=== PATIENT | male | born 1980 | race Caucasian/White ===

== ENCOUNTER 2021-01-27 12:31 | Inpatient (IN) | payer MEDICAID, OTHER ==
[~2021-01-27] VITALS: Ht 180.3 cm; Wt 152.0 kg
[~2021-01-27 12:31] MED LIST: ALB0.5V IH; ALBU17AE3 IH; ASPI-875 PO; BENZ100C18 PO; BUDE1AMP IH; BUDE6HFA IH; CEFD300C3 PO; CPR500T PO; DULO30CA PO; FENO134C PO; FENO135C4 PO; FLUT16SP22 NS; GBPN300C PO; HCT25T PO; HYDR-229 PO; HYDR-757 PO; HYDR118S10 PO; HYDR1TAB PO; LIRA0.6P SQ; LISI1TAB10 PO; MELO-195 PO; MELO-198 PO; MMT17NA NSEACH; MNTL10T PO; MONT10TA24 PO; MTF500T PO; OMEP20CA6 PO; OXYC-12 PO; OXYC1TAB87 PO; PREG100C22 PO; PRM25T PO; PROVENTIL INHALER IH; RABE20TA27 PO; RT-ALBUINH IH; SILD20TA2 PO; SULF-222 PO; SULF1TAB38 PO; TMSL.4C PO; [UNRECOGNIZED DRUG - CODE] PO
[2021-01-27 13:25] LABS: BASOPHILS % (AUTO) 0 % (0-10); EOSINOPHILS % (AUTO) 0 % (0-10); HEMATOCRIT 40 % (40-54); HEMOGLOBIN 14.1 g/dL (13.3-17.7); LYMPHOCYTES # (AUTO) 0.8 10^3/uL (1.0-4.0); LYMPHOCYTES % (AUTO) 10 % (12-44); MEAN CORPUSCULAR HEMOGLOBIN 29 pg (25-34); MEAN CORPUSCULAR HGB CONC 36 g/dL (32-36); MEAN CORPUSCULAR VOLUME 80 fL (80-99); MONOCYTES # (AUTO) 0.3 10^3/uL (0.0-1.0); MONOCYTES % (AUTO) 4 % (0-12); NEUTROPHILS # (AUTO) 7.2 10^3/uL (1.8-7.8); NEUTROPHILS % (AUTO) 86 % (42-75); PLATELET COUNT 158 10^3/uL (130-400); WHITE BLOOD COUNT 8.4 10^3/uL (4.3-11.0)
--- NOTE | 2021-01-27 13:26 | ED Respiratory ---
General Chief Complaint: Respiratory Problems Stated Complaint: SOA/COUGH/CHILLS/HEADACHE Source: patient Exam Limitations: no limitations History of Present Illness Date Seen by Provider: Jan 27, 2021 Time Seen by Provider: 13:00 Initial Comments Diabetic overweight male presents with 48 hours of cough shortness of breath malaise fatigue chills nausea. Has not been vaccinated against Covid. Timing/Duration: constant, getting worse Severity: moderate Modifying Factors: Worse With Activity, Worse With Coughing; Improves With Oxygen, Improves With Rest Associated Symptoms: cough, fever/chills, headache, muscle aches, nasal co ngestion, shortness of breath Allergies and Home Medications Allergies Coded Allergies: adhesive (Unverified Allergy, Unknown, RASH, 06/16/14) Home Medications Albuterol Sulfate 2.5 Mg/0.5 Ml Vial.neb, 2.5 MG IH Q4H Prescribed by: MARLEN JACOB on 07/25/152245 Benzonatate 100 Mg Capsule, 1-2 TAB PO TID Prescribed by: MARLEN JACOB on 07/25/152245 Budesonide 1 Mg/2 Ml Ampul.neb, 1 MG IH BID Prescribed by: MARLEN JACOB on 07/25/152245 Budesonide/Formoterol Fumarate 10.2 Gm Hfa.aer.ad, 2 PUFF IH BID, (Reported) Cefdinir 300 Mg Capsule, 300 MG PO BID Prescribed by: MARLEN JACOB on 07/25/152245 Duloxetine Hcl 30 Mg Capsule.dr, 30 MG PO HS, (Reported) Fenofibric Acid (Choline) 135 Mg Capsule.dr, 135 MG PO HS, (Reported) Fluticasone Propionate 16 Gm Naspr, 1 SPRAY NS BID PRN, (Reported) NEEDED FOR ALLERGY SYMPTOMS Hctz/Lisinopril 1 Tab Tablet, 1 TAB PO HS, (Reported) 20-25MG TABLET Liraglutide 0.6 Mg/0.1 Ml Pen.injctr, 1.8 MG SQ HS, (Reported) Meloxicam 7.5 Mg Tablet, 7.5 MG PO DAILY, (Reported) Mometasone Furoate 17 Gm Naspr, 2 SPRAYS NSEACH BID Prescribed by: MARLEN JACOB on 07/25/152245 Montelukast Sodium 10 Mg Tablet, 10 MG PO HS, (Reported) Oxycodone Hcl/Acetaminophen 1 Each Tablet, 1-2 EACH PO Q4-6H PRN Prescribed by: BRAYDON BOTELLO on 06/22/14 1040 Pregabalin 100 Mg Capsule, 100 MG PO TID, (Reported) Rabeprazole Sodium 20 Mg Tablet.dr, 20 MG PO HS, (Reported) [Proventil Inhaler] , 2 PUFF IH Q4H PRN for SHORTNESS OF BREATH, (Reported) PRN SOB Patient Home Medication List Home Medication List Reviewed: Yes Review of Systems Review of Systems Constitutional: see HPI, chills, malaise, weakness EENTM: see HPI Respiratory: see HPI, cough, short of breath Cardiovascular: no symptoms reported Genitourinary: no symptoms reported Musculoskeletal: no symptoms reported Skin: no symptoms reported Psychiatric/Neurological: No Symptoms Reported Past Dgkxgur-Vuplqd-Yidrfh Hx Immunizations Up To Date Date of Influenza Vaccine: Jun 11, 2012 Seasonal Allergies Seasonal Allergies: Yes Past Medical History Eye Surgery, Vasectomy Asthma High Cholesterol, Hypertension Neuropathy Reproductive Disorders: No Kidney Stones Gastroesophageal Reflux, Hemorrhoids Arthritis Diabetes, Non-Insulin dep Anxiety, Depression Physical Exam Vital Signs - First Documented 01/27/21 12:45 Temp 38.0 Pulse 83 Resp 22 B/P (MAP) 116/77 (90) Pulse Ox 94 O2 Delivery Nasal Cannula O2 Flow Rate 2.00 Capillary Refill : Height: 5'11" Weight: 305lbs. oz. 138.926766uz; BMI Method:Stated General Appearance: WD/WN, no apparent distress, obese, other (No distress. 88% on room air. Up to 94% with 2 L of supplemental oxygen.) Eyes: Bilateral Eye Normal Inspection, Bilateral Eye PERRL, Bilateral Eye EOMI Neck: non-tender, full range of motion Respiratory: chest non-tender, no respiratory distress, no accessory muscle use Cardiovascular: regular rate, rhythm, no murmur Gastrointestinal: normal bowel sounds, non tender, soft Neurologic/Psychiatric: alert, normal mood/affect, oriented x 3 Skin: normal color, warm/dry Focused Exam Lactate Level 01/27/21 12:50: Lactic Acid Level 1.97 Lactic Acid Level Laboratory Tests Test 01/27/21 12:50 Lactic Acid Level 1.97 MMOL/L (0.50-2.00) Progress/Results/Core Measures Suspected Sepsis SIRS Temperature: Pulse: Respiratory Rate: Laboratory Tests 01/27/21 12:50: White Blood Count 8.4 Blood Pressure / Mean: 01/27/21 12:50: Lactic Acid Level 1.97 Laboratory Tests 01/27/21 12:50: Creatinine 1.22, Platelet Count 158, Total Bilirubin 1.3H Results/Orders Lab Results Laboratory Tests Test 01/27/21 12:50 Range/Units White Blood Count 8.4 4.3-11.0 10^3/uL Red Blood Count 4.94 4.30-5.52 10^6/uL Hemoglobin 14.1 13.3-17.7 g/dL Hematocrit 40 40-54 % Mean Corpuscular Volume 80 80-99 fL Mean Corpuscular Hemoglobin 29 25-34 pg Mean Corpuscular Hemoglobin Concent 36 32-36 g/dL Red Cell Distribution Width 12.5 10.0-14.5 % Platelet Count 158 130-400 10^3/uL Mean Platelet Volume 11.0 9.0-12.2 fL Immature Granulocyte % (Auto) 1 % Neutrophils (%) (Auto) 86 H 42-75 % Lymphocytes (%) (Auto) 10 L 12-44 % Monocytes (%) (Auto) 4 0-12 % Eosinophils (%) (Auto) 0 0-10 % Basophils (%) (Auto) 0 0-10 % Neutrophils # (Auto) 7.2 1.8-7.8 10^3/uL Lymphocytes # (Auto) 0.8 L 1.0-4.0 10^3/uL Monocytes # (Auto) 0.3 0.0-1.0 10^3/uL Eosinophils # (Auto) 0.0 0.0-0.3 10^3/uL Basophils # (Auto) 0.0 0.0-0.1 10^3/uL Immature Granulocyte # (Auto) 0.0 0.0-0.1 10^3/uL D-Dimer 0.50 H 0.00-0.49 UG/ML Sodium Level 131 L 135-145 MMOL/L Potassium Level 3.2 L 3.6-5.0 MMOL/L Chloride Level 92 L 98-107 MMOL/L Carbon Dioxide Level 25 21-32 MMOL/L Anion Gap 14 5-14 MMOL/L Blood Urea Nitrogen 11 7-18 MG/DL Creatinine 1.22 0.60-1.30 MG/DL Estimat Glomerular Filtration Rate > 60 BUN/Creatinine Ratio 9 Glucose Level 381 H 70-105 MG/DL Lactic Acid Level 1.97 0.50-2.00 MMOL/L Calcium Level 8.0 L 8.5-10.1 MG/DL Corrected Calcium 8.3 L 8.5-10.1 MG/DL Total Bilirubin 1.3 H 0.1-1.0 MG/DL Aspartate Amino Transf (AST/SGOT) 27 5-34 U/L Alanine Aminotransferase (ALT/SGPT) 29 0-55 U/L Alkaline Phosphatase 36 L 40-136 U/L C-Reactive Protein High Sensitivity 16.44 H 0.00-0.50 MG/DL B-Type Natriuretic Peptide 48.2 <100.0 PG/ML Total Protein 6.8 6.4-8.2 GM/DL Albumin 3.6 3.2-4.5 GM/DL Procalcitonin 0.28 H <0.10 NG/ML Influenza Type A (RT-PCR) Not Detected Not Detecte Influenza Type B (RT-PCR) Not Detected Not Detecte SARS-CoV-2 RNA (RT-PCR) Detected H Not Detecte My Orders Orders - ELOY CHIANG [employer] Cbc With Automated Diff (01/27/21 12:52) Covid 19 Inhouse Test (01/27/21 12:52) Hs C Reactive Protein (01/27/21 12:52) Comprehensive Metabolic Panel (01/27/21 12:52) Fibrin Degradation Products (01/27/21 12:52) Chest 1 View, Ap/Pa Only (01/27/21 12:52) Procalcitonin (Pct) (01/27/21 12:52) Ed Iv/Invasive Line Start (01/27/21 12:52) Blood Culture (01/27/21 12:52) Influenza A And B By Pcr (01/27/21 12:52) Lactic Acid Analyzer (01/27/21 12:52) BNP (01/27/21 13:43) Medications Given in ED Vital Signs/I&O 01/27/21 12:45 Temp 38.0 Pulse 83 Resp 22 B/P (MAP) 116/77 (90) Pulse Ox 94 O2 Delivery Nasal Cannula O2 Flow Rate 2.00 Capillary Refill : Diagnostic Imaging Diagonstic Imaging: Xray Comments NAME: [facility] REC#: [id number] PT STATUS: REG ER : 1980 PHYSICIAN: ELOY CHIANG APRN ADMIT DATE: 01/27/21/ER Draft Date of Exam:01/27/21 CHEST 1 VIEW, AP/PA ONLY Indication: Cough. Time of exam: 1:35 PM Correlation is made prior chest 07/25/2015. The heart size is normal. There is patchy airspace infiltrate in the right base suggestive of pneumonia. Remaining lung navarrete are clear. There is no effusion or pneumothorax. Impression: Patchy right basilar pneumonia. Dictated on workstation # [id number] Dict: 01/27/21 1346 Trans: 01/27/21 1359 CVB [id number] Interpreted by: NGA ALFARO MD Electronically signed by: Departure Communication (Admissions) [id number] spoke with Dr. Marshall will admit on remdesivir, Decadron, 20 units of regular insulin Impression Primary Impression: COVID-19 Additional Impression: Hypoxia Disposition: ADMITTED INPATIENT Condition: Stable Admissions Decision to Admit Reason: Admit from ER (General) Decision to Admit/Date: Jan 27, 2021 Time/Decision to Admit Time: 14:03 Departure-Patient Inst. Referrals: [facility] [place] ([place]) Primary Care Physician ELOY CHIANG APRN Jan 27, 2021 13:26
[2021-01-27 13:38] LABS: ALBUMIN 3.6 GM/DL (3.2-4.5)
[2021-01-27 13:39] LABS: CHLORIDE 92 MMOL/L (98-107); POTASSIUM 3.2 MMOL/L (3.6-5.0); SODIUM 131 MMOL/L (135-145)
[2021-01-27 13:41] LABS: GLUCOSE 381 MG/DL (70-105); TOTAL PROTEIN 6.8 GM/DL (6.4-8.2)
[2021-01-27 13:42] LABS: CARBON DIOXIDE 25 MMOL/L (21-32)
[2021-01-27 13:43] LABS: BILIRUBIN,TOTAL 1.3 MG/DL (0.1-1.0)
[2021-01-27 13:44] LABS: ALKALINE PHOSPHATASE 36 U/L (40-136)
[2021-01-27 13:45] LABS: CREATININE SERUM 1.22 MG/DL (0.60-1.30); GFR ESTIMATED > 60
[2021-01-27 13:46] LABS: BUN/CREATININE RATIO 9
[2021-01-27 13:48] LABS: ALANINE AMINOTRANSFERASE 29 U/L (0-55)
--- NOTE | 2021-01-27 14:00 | Diagnostic Imaging Report ---
Indication: Cough. Time of exam: 1:35 PM Correlation is made prior chest 07/25/2015. The heart size is normal. There is patchy airspace infiltrate in the right base suggestive of pneumonia. Remaining lung navarrete are clear. There is no effusion or pneumothorax. Impression: Patchy right basilar pneumonia. Dictated by: Dictated on workstation # [id number]
[2021-01-27] MEDS ORDERED: inSUlin (REGULAR) HUMAN 1 UNIT/0.01 ML (CHARGE PER UNIT) SC ONE ×2 (14:15→14:30)
[2021-01-27] MEDS ORDERED: NS IV 1000 ML 1,000 ML IV SCH (14:15)
[2021-01-27] MEDS ORDERED: dexAMETHasone 6 MG TAB (DECADRON) PO SCH (14:30)
[2021-01-27] MEDS ORDERED: inSUlin (REGULAR) HUMAN 1 UNIT/0.01 ML (CHARGE PER UNIT) ONE (14:32)
[2021-01-27] MEDS ORDERED: dexAMETHasone 6 MG TAB (DECADRON) ONE (14:33)
[2021-01-27 15:37] LABS: ABG BASE EXCESS 1.5 MMOL/L (-2.5-2.5); ABG OXYGEN SATURATION 95 % (94-100); ABG PCO2 31 MMHG (35-45); ABG PO2 74 MMHG (79-93); ABG TCO2 25.1 MMOL/L (21.0-31.0)
[2021-01-27 15:38] LABS: INSPIRED O2 2 L; PATIENT TEMP 101.3; VENTILATOR NO
[2021-01-27 16:00] VITALS: BP 124/71
[2021-01-27 16:43] VITALS: BP 104/62
[2021-01-27] MEDS ORDERED: REMDESIVIR INJ 100 MG in NS (IVPB) 230 ML IV SCH (17:45)
[2021-01-27] MEDS ORDERED: inSUlin ASPART (NovoLOG) 1 UNIT/0.01 ML (CHARGE PER UNIT) SC SCH (17:45)
[2021-01-27] MEDS ORDERED: ONDANSETRON 4 MG/2 ML (SDV) Z0FRAN IVP PRN ×2 (17:45→19:30)
[2021-01-27] MEDS ORDERED: ENOXAPARIN 40 MG/0.4 ML (LOVENOX) SYR SC SCH (17:45)
[2021-01-27] MEDS ORDERED: ENOXAPARIN 40 MG/0.4 ML (LOVENOX) SYR ONE (18:05)
[2021-01-27] MEDS: RT-ALBUTEROL INHALER HFA (VENTOLIN HFA) 18 GM IH SCH ×2 (18:44→21:13)
[2021-01-27] MEDS: inSUlin ASPART (NovoLOG) 1 UNIT/0.01 ML (CHARGE PER UNIT) SC SCH ×2 (19:17→21:04)
[2021-01-27] MEDS ORDERED: ACETAMINOPHEN 500 MG TAB (TYLENOL) PO PRN (19:30)
[2021-01-27] MEDS ORDERED: MELATONIN 3 MG TABLET PO PRN (19:30)
[2021-01-27] MEDS ORDERED: LOPERAMIDE 2 MG (IMODIUM) TABLET PO PRN (19:30)
[2021-01-27] MEDS ORDERED: CALCIUM CARBONATE 500 MG (TUMS) TAB.CHEW PO PRN (19:30)
[2021-01-27] MEDS ORDERED: DOCUSATE SODIUM 100 MG (COLACE) CAP PO PRN (19:30)
[2021-01-27] MEDS ORDERED: HYDROcodone/APAP 5 MG/325 MG (LORTAB) TAB PO PRN (19:30)
[2021-01-27] MEDS ORDERED: diphenhydrAMINE 25 MG TAB (BENADRYL) PO PRN (19:30)
[2021-01-27 19:45] VITALS: BP 127/66
[2021-01-27] MEDS: SENNA W/DOCUSATE (SENOKOT S) TABLET PO SCH (21:33)
[2021-01-28] VITALS (20 sets, daily range): BP systolic 94–153; BP diastolic 53–74
[2021-01-28] MEDS: RT-ALBUTEROL INHALER HFA (VENTOLIN HFA) 18 GM IH SCH ×6 (03:38→20:21)
[2021-01-28] MEDS: RT--FLUTICASONE/SALMETEROL 232-14 (AIRDUO RespiCLICK) IH SCH ×3 (03:38→20:29)
[2021-01-28 05:39] LABS: BASOPHILS % (AUTO) 0 % (0-10); EOSINOPHILS % (AUTO) 0 % (0-10); HEMATOCRIT 35 % (40-54); HEMOGLOBIN 12.3 g/dL (13.3-17.7); LYMPHOCYTES % (AUTO) 13 % (12-44); MEAN CORPUSCULAR HEMOGLOBIN 29 pg (25-34); MEAN CORPUSCULAR HGB CONC 35 g/dL (32-36); MEAN CORPUSCULAR VOLUME 81 fL (80-99); MEAN PLATELET VOLUME 11.3 fL (9.0-12.2); MONOCYTES # (AUTO) 0.3 10^3/uL (0.0-1.0); MONOCYTES % (AUTO) 4 % (0-12); NEUTROPHILS # (AUTO) 6.3 10^3/uL (1.8-7.8); NEUTROPHILS % (AUTO) 82 % (42-75); PLATELET COUNT 144 10^3/uL (130-400); WHITE BLOOD COUNT 7.7 10^3/uL (4.3-11.0)
[2021-01-28 05:51] LABS: CHLORIDE 97 MMOL/L (98-107); POTASSIUM 3.3 MMOL/L (3.6-5.0); SODIUM 135 MMOL/L (135-145)
[2021-01-28 05:52] LABS: CALCIUM 7.6 MG/DL (8.5-10.1); GLUCOSE 276 MG/DL (70-105)
--- NOTE | 2021-01-28 05:53 | History & Physical-Hospitalist ---
History of Present Illness HPI/Chief Complaint Chief complaint: Shortness of breath due to Covid History of present illness: This is a 40-year-old white male diabetic noncompliant with diabetic medication who does not use oxygen or CPAP machine but appears to be high risk for CPAP due to neck circumference and BMI of 40 who presented to the ER with shortness of breath was diagnosed with Covid and he is hypoxic. Patient has progressed throughout the day and at 2100 hrs. the decision was made to transfer up to the ICU for pulmonary critical care management due to maxed on Vapotherm likely will need BiPAP and possible intubation. His blood sugars remain in the 300s with aggressive insulin regimen trying to decrease the level. He does not currently smoke or drink alcohol any works for [employer]. He has not been vaccinated against COVID-19. Source: patient, RN/MD Exam Limitations: no limitations Date Seen 01/28/21 Time Seen by a Provider: 10:30 Attending Physician Maria Alejandra Marshall DO [facility] Referring Physician Date of Admission Jan 27, 2021 at 14:00 Home Medications & Allergies Home Medications Reviewed patient Home Medication Reconciliation performed by pharmacy medication reconciliations telecom field technician and/or nursing. Patients Allergies have been reviewed. Allergies Allergies Coded Allergies adhesive (Unverified Allergy, Unknown, RASH, 06/16/14) Past Cnrmqbv-Jssool-Sprcal Hx Patient Social History Marrital Status: single Employed/Student: employed Tobacco Use?: No Smoking Status: Never a Smoker Smokeless Tobacco Frequency: Never a User Use of E-Cig and/or Vaping dev: Yes E-Cig or Vaping type used: Nicotine Use of E-Cig and/or Vaping Greyson: Current Everyday User Substance use?: No Alcohol Use?: No Pt feels they are or have been: No Immunizations Up To Date Date of Influenza Vaccine: Jun 11, 2012 First/Initial COVID19 Vaccinat: NEVER Tetanus Booster (TDap): More Than 5 Years Hepatitis A: No Hepatitis B: No PED Vaccines UTD: Yes Seasonal Allergies Seasonal Allergies: Yes Current Status Advance Directives: No Communicates: Verbally Primary Language: Mohawk Preferred Spoken Language: Mohawk Is interpretation needed?: No Implanted or Applied Medical D: None Past Medical History Surgeries: Eye Surgery, Vasectomy Asthma High Cholesterol, Hypertension Neuropathy Kidney Stones Gastroesophageal Reflux, Hemorrhoids Arthritis Diabetes, Non-Insulin dep Anxiety, Depression Blood Disorders: No Review of Systems Constitutional: see HPI, weakness Respiratory: cough Physical Exam Physical Exam Vital Signs Vital Signs - First Documented 01/27/21 01/27/21 12:45 16:43 Temp 38.0 Pulse 83 Resp 22 B/P (MAP) 116/77 (90) Pulse Ox 94 O2 Delivery Nasal Cannula O2 Flow Rate 2.00 FiO2 28 Capillary Refill : Less Than 3 Seconds Height, Weight, BMI Height: 5'11" Weight: 305lbs. oz. 138.067899vl; 39.92 BMI Method:Stated General Appearance: No Apparent Distress, Anxious, Chronically ill, Obese Eyes: Right Eye Normal Inspection, Right Eye PERRL HEENT: PERRL/EOMI, Normal ENT Inspection, Pharynx Normal, Moist Mucous Membranes Neck: Full Range of Motion, Normal Inspection, Non Tender Respiratory: Chest Non Tender, Lungs Clear, No Accessory Muscle Use, No Respiratory Distress, Decreased Breath Sounds Cardiovascular: Regular Rate, Rhythm, No Edema, No Gallop, No JVD, No Murmur, Normal Peripheral Pulses Gastrointestinal: Normal Bowel Sounds, No Organomegaly, No Pulsatile Mass, Non Tender, Soft Back: Normal Inspection, No CVA Tenderness, No Vertebral Tenderness Extremity: Normal Capillary Refill, Normal Inspection, Normal Range of Motion, Non Tender, No Calf Tenderness, No Pedal Edema Neurologic/Psychiatric: Alert, Oriented x3, No Motor/Sensory Deficits, Normal Mood/Affect Skin: Normal Color, Warm/Dry Lymphatic: No Adenopathy Results Results/Procedures Labs Laboratory Tests 01/27/21 12:50 01/28/21 05:20 Patient resulted labs reviewed. Assessment/Plan Admission Diagnosis Assessment: COVID-19 pneumonia Hypoxia maxing on Vapotherm transferring to ICU for BiPAP and possible intubation Morbid obesity BMI 40 Diabetes gmy-jk-rcyysxm in 300 range hemoglobin A1c pending Neuropathy Hypertension Hyperlipidemia Plan: Transfer to the ICU BiPAP Possible intubation Lovenox twice daily Decadron Convalescent plasma Remdesivir Monitor closely Admission Status: Inpatient Order (span 2 midnights) Reason for Inpatient Admission: COVID Diagnosis/Problems Diagnosis/Problems (1) COVID-19 Status: Acute (2) Hypoxia Status: Acute MARIA ALEJANDRA MARSHALL DO Jan 28, 2021 05:53
[2021-01-28 05:54] LABS: CARBON DIOXIDE 23 MMOL/L (21-32)
[2021-01-28 05:56] LABS: CREATININE SERUM 1.13 MG/DL (0.60-1.30); GFR ESTIMATED > 60
[2021-01-28 05:57] LABS: BUN/CREATININE RATIO 14
[2021-01-28] MEDS: inSUlin ASPART (NovoLOG) 1 UNIT/0.01 ML (CHARGE PER UNIT) SC SCH ×4 (06:14→20:35)
[2021-01-28] MEDS: dexAMETHasone 6 MG TAB (DECADRON) PO SCH (06:14)
[2021-01-28] MEDS: SENNA W/DOCUSATE (SENOKOT S) TABLET PO SCH ×2 (07:38→19:18)
[2021-01-28] MEDS: ALPRAZolam 0.25 MG (XANAX) TAB PO PRN (08:26)
[2021-01-28] MEDS: REMDESIVIR INJ 100 MG in NS (IVPB) 230 ML IV SCH (09:05)
[2021-01-28] MEDS: ENOXAPARIN 40 MG/0.4 ML (LOVENOX) SYR SC SCH ×2 (12:24→20:22)
[2021-01-28] MEDS ORDERED: NS IV 500 ML 500 ML ONE (13:31)
[2021-01-28] MEDS: inSUlin (REGULAR) HUMAN 1 UNIT/0.01 ML (CHARGE PER UNIT) SC PRN ×2 (17:10→20:34)
--- NOTE | 2021-01-28 21:17 | Diagnostic Imaging Report ---
EXAM: Chest 1 view, AP/PA only. INDICATION: Pneumonia. COVID. COMPARISON: Chest radiograph 01/27/2021. FINDINGS: Diffuse airspace opacities are similar to yesterday. No pleural effusion or pneumothorax. Low lung volumes. Normal heart size and central pulmonary vascularity. No acute osseous findings. IMPRESSION: Airspace opacities, bilaterally, are similar to yesterday. Dictated by: Dictated on workstation # [id number]
[2021-01-28 21:41] LABS: BASOPHILS % (AUTO) 0 % (0-10); EOSINOPHILS % (AUTO) 0 % (0-10); HEMATOCRIT 36 % (40-54); HEMOGLOBIN 12.7 g/dL (13.3-17.7); LYMPHOCYTES # (AUTO) 0.9 10^3/uL (1.0-4.0); LYMPHOCYTES % (AUTO) 7 % (12-44); MEAN CORPUSCULAR HEMOGLOBIN 29 pg (25-34); MEAN CORPUSCULAR HGB CONC 36 g/dL (32-36); MEAN CORPUSCULAR VOLUME 80 fL (80-99); MEAN PLATELET VOLUME 11.5 fL (9.0-12.2); MONOCYTES # (AUTO) 0.3 10^3/uL (0.0-1.0); MONOCYTES % (AUTO) 3 % (0-12); NEUTROPHILS # (AUTO) 11.5 10^3/uL (1.8-7.8); NEUTROPHILS % (AUTO) 90 % (42-75); PLATELET COUNT 215 10^3/uL (130-400); WHITE BLOOD COUNT 12.8 10^3/uL (4.3-11.0)
[2021-01-28 21:51] LABS: ALANINE AMINOTRANSFERASE 50 U/L (0-55); ALBUMIN 3.2 GM/DL (3.2-4.5); ALKALINE PHOSPHATASE 39 U/L (40-136); BUN/CREATININE RATIO 15; CALCIUM 8.1 MG/DL (8.5-10.1); CARBON DIOXIDE 23 MMOL/L (21-32); CHLORIDE 96 MMOL/L (98-107); CREATININE SERUM 1.23 MG/DL (0.60-1.30); GFR ESTIMATED > 60; SODIUM 133 MMOL/L (135-145); TOTAL PROTEIN 6.3 GM/DL (6.4-8.2)
[2021-01-28 21:57] LABS: ABG BASE EXCESS 2.5 MMOL/L (-2.5-2.5); ABG OXYGEN SATURATION 96 % (94-100); ABG PCO2 33 MMHG (35-45); ABG PH 7.51 (7.37-7.43); ABG PO2 85 MMHG (79-93); ABG TCO2 26.2 MMOL/L (21.0-31.0)
[2021-01-28 21:59] LABS: ALLENS TEST POSITIVE; INSPIRED O2 100%; PATIENT TEMP 38.6; VENTILATOR NO
[2021-01-28 22:02] LABS: GLUCOSE 417 MG/DL (70-105)
[2021-01-28] MEDS ORDERED: POTASSIUM CL 10MEQ/50ML IVPB 250 ML IV ONE (22:29)
[2021-01-28 22:35] LABS: LYMPHOCYTES % (MANUAL) 8 %; MONOCYTES % (MANUAL) 2 %; NEUTROPHILS % (MANUAL) 90 %; RBC MORPH NORMAL
[2021-01-28] MEDS: POTASSIUM CL 10MEQ/50ML IVPB 50 ML IV SCH ×2 (22:53→23:24)
[2021-01-29] VITALS (31 sets, daily range): BP systolic 95–168; BP diastolic 54–126
[2021-01-29] MEDS: POTASSIUM CL 10MEQ/50ML IVPB 50 ML IV SCH ×7 (00:40→12:26)
[2021-01-29] MEDS: RT-ALBUTEROL INHALER HFA (VENTOLIN HFA) 18 GM IH SCH ×6 (03:08→21:42)
[2021-01-29 04:00] LABS: BASOPHILS % (AUTO) 0 % (0-10); EOSINOPHILS % (AUTO) 0 % (0-10); HEMATOCRIT 36 % (40-54); HEMOGLOBIN 12.7 g/dL (13.3-17.7); LYMPHOCYTES # (AUTO) 1.3 10^3/uL (1.0-4.0); LYMPHOCYTES % (AUTO) 11 % (12-44); MEAN CORPUSCULAR HEMOGLOBIN 28 pg (25-34); MEAN CORPUSCULAR HGB CONC 36 g/dL (32-36); MEAN CORPUSCULAR VOLUME 80 fL (80-99); MEAN PLATELET VOLUME 10.9 fL (9.0-12.2); MONOCYTES # (AUTO) 0.4 10^3/uL (0.0-1.0); MONOCYTES % (AUTO) 3 % (0-12); NEUTROPHILS # (AUTO) 9.7 10^3/uL (1.8-7.8); NEUTROPHILS % (AUTO) 85 % (42-75); PLATELET COUNT 217 10^3/uL (130-400); WHITE BLOOD COUNT 11.4 10^3/uL (4.3-11.0)
[2021-01-29] MEDS: ALPRAZolam 0.25 MG (XANAX) TAB PO PRN (04:00)
[2021-01-29 04:17] LABS: CHLORIDE 100 MMOL/L (98-107); POTASSIUM 3.2 MMOL/L (3.6-5.0); SODIUM 138 MMOL/L (135-145)
[2021-01-29 04:18] LABS: CALCIUM 7.9 MG/DL (8.5-10.1)
[2021-01-29 04:19] LABS: GLUCOSE 151 MG/DL (70-105)
[2021-01-29 04:20] LABS: CARBON DIOXIDE 24 MMOL/L (21-32)
[2021-01-29 04:22] LABS: PHOSPHORUS 2.7 MG/DL (2.3-4.7)
[2021-01-29 04:23] LABS: CREATININE SERUM 0.96 MG/DL (0.60-1.30); GFR ESTIMATED > 60
[2021-01-29 04:24] LABS: BUN/CREATININE RATIO 19
[2021-01-29 04:25] LABS: MAGNESIUM 2.2 MG/DL (1.6-2.4)
[2021-01-29] MEDS: inSUlin ASPART (NovoLOG) 1 UNIT/0.01 ML (CHARGE PER UNIT) SC SCH ×4 (04:36→20:02)
[2021-01-29] MEDS: KCL 20 MEQ TAB (K-DUR) PO SCH (04:36)
[2021-01-29] MEDS: MAGNESIUM 1 GM/100 ML IVPB 100 ML IV SCH (04:36)
[2021-01-29] MEDS: dexAMETHasone 6 MG TAB (DECADRON) PO SCH (06:16)
[2021-01-29] MEDS: RT--FLUTICASONE/SALMETEROL 232-14 (AIRDUO RespiCLICK) IH SCH ×3 (07:17→18:52)
--- NOTE | 2021-01-29 08:42 | Pulmonary Progress Note ---
Subjective Date Seen by a Provider: Jan 29, 2021 Time Seen by a Provider: 09:29 Subjective/Events-last exam 40 y/o with Hx of DM2, possible CONCEPCIÓN, non compliant with meds. Came in for COVID- 19 PNA with acute hypoxic resp failure. Moved to ICU for increased WOB and worsening hypoxia. Was on high flow @ 40 kpm with FiO2 100%, now back on BiPAP 12/8 FiO2 90%. Sats 97% on 100% O2. Labs, CXR report reviewed.has bilateral opacities Mild transaminitis On Remdesivir and Decadron. glu high,, on Lemivir 25 units, patient is NPO RN reports pt is anxious On Xanax, but will try IV Precedex Sepsis Event Evaluation Height, Weight, BMI Height: 5'11" Weight: 305lbs. oz. 138.311999wk; 39.92 BMI Method:Stated Focused Exam Lactate Level 01/27/21 12:50: Lactic Acid Level 1.97 Exam Exam Patient acknowledged, consented, and participated in this virtual visit which was conducted using real time audio/video Vital Signs Date Time Temp Pulse Resp B/P (MAP) Pulse Ox O2 Delivery O2 Flow Rate FiO2 01/29/21 07:17 91 Vapotherm 40.00 100 01/29/21 06:39 58 01/29/21 06:00 62 30 112/67 (82) 93 NIV Bilevel 75.00 01/29/21 05:00 57 114/68 (79) 95 NIV Bilevel 75.00 01/29/21 04:00 37.6 01/29/21 04:00 68 108/72 (81) 94 NIV Bilevel 75.00 01/29/21 03:08 65 23 95 70.00 01/29/21 03:05 NIV Bilevel 75 01/29/21 03:00 58 25 96/62 (71) 96 NIV Bilevel 75.00 01/29/21 02:16 NIV Bilevel 75.00 01/29/21 02:08 66 30 95/62 (69) 96 NIV Bilevel 90.00 01/29/21 01:00 66 103/67 (79) 97 NIV Bilevel 90.00 01/29/21 01:00 66 01/29/21 00:30 69 111/64 (80) 94 NIV Bilevel 90.00 01/29/21 00:00 69 27 111/54 (73) 98 NIV Bilevel 100.00 01/29/21 00:00 NIV Bilevel 90 01/28/21 23:45 77 32 110/61 (73) 97 NIV Bilevel 100.00 01/28/21 23:30 73 22 107/64 (74) 97 NIV Bilevel 100.00 01/28/21 23:24 38.6 01/28/21 23:15 80 28 107/59 (75) 97 NIV Bilevel 100.00 01/28/21 23:00 85 27 105/60 (77) 96 NIV Bilevel 100.00 01/28/21 22:59 80 34 97 100.00 01/28/21 22:49 78 31 117/64 (81) 95 NIV Bilevel 100.00 01/28/21 22:00 60 21 153/65 (94) 94 NIV Bilevel 100.00 01/28/21 21:56 80 01/28/21 21:56 80 01/28/21 21:45 81 29 120/65 (83) 97 NIV Bilevel 100.00 01/28/21 21:34 38.6 80 27 118/66 (83) 93 NIV Bilevel 100.00 01/28/21 21:26 78 34 96 100.00 01/28/21 21:16 95 29 128/71 (90) 88 Vapotherm 40.00 100.00 01/28/21 20:30 92 Vapotherm 40.00 100 01/28/21 20:10 90 Vapotherm 40.00 100.00 01/28/21 20:04 38.1 88 22 115/57 (76) 83 Vapotherm 25.00 80.00 01/28/21 19:30 89 Vapotherm 40.00 100 01/28/21 16:46 36.9 81 20 116/55 (75) 92 Vapotherm 25.00 80.00 01/28/21 15:50 37.4 67 20 108/72 93 Vapotherm 25.00 01/28/21 14:04 37.5 60 20 115/70 93 Vapotherm 25.00 01/28/21 13:58 94 Vapotherm 25.00 90 01/28/21 13:49 37.5 68 19 114/58 92 Vapotherm 25.00 01/28/21 12:00 38.0 64 20 116/60 (78) 93 Vapotherm 25.00 90.00 01/28/21 10:53 94 Vapotherm 25.00 90.00 01/28/21 10:46 95 Vapotherm 25.00 90 01/28/21 10:16 89 Nasal Cannula 4.00 I & O 01/29/21 07:00 Intake Total 1110 ml Output Total 600 ml Balance 510 ml Height & Weight Height: 5'11" Weight: 305lbs. oz. 138.073809jv; 39.92 BMI Method:Stated General Appearance: No Apparent Distress, Anxious, Chronically ill, Obese HEENT: PERRL/EOMI, Normal ENT Inspection, Pharynx Normal, Moist Mucous Membranes Neck: Full Range of Motion, Normal Inspection, Non Tender Respiratory: Chest Non Tender, Lungs Clear, No Accessory Muscle Use, No Respiratory Distress, Decreased Breath Sounds Cardiovascular: Regular Rate, Rhythm, No Edema, No Gallop, No JVD, No Murmur, Normal Peripheral Pulses Capillary Refill: Less Than 3 Seconds Gastrointestinal: normal bowel sounds, non tender, soft Extremity: Normal Capillary Refill, Normal Inspection, Normal Range of Motion, Non Tender, No Calf Tenderness, No Pedal Edema Neurologic/Psychiatric: Alert, Oriented x3, No Motor/Sensory Deficits, Normal Mood/Affect Skin: Normal Color, Warm/Dry Lymphatic: No Adenopathy Results Lab Laboratory Tests 01/27/21 12:50 01/28/21 05:20 01/28/21 21:20 01/29/21 03:42 Assessment/Plan Assessment/Plan Continue with BIPAP and wean O2 keeping sats 92-96%. D/W the bedside nurse will add IV precedex, monitor oxygenation, keep for BiPAP for now, continue COVID meds, Time spent with patient (mins): 15 TWAN HORNER MD Jan 29, 2021 08:42
[2021-01-29] MEDS: REMDESIVIR INJ 100 MG in NS (IVPB) 230 ML IV SCH (08:53)
[2021-01-29] MEDS: SENNA W/DOCUSATE (SENOKOT S) TABLET PO SCH ×2 (08:53→19:46)
[2021-01-29] MEDS: ENOXAPARIN 40 MG/0.4 ML (LOVENOX) SYR SC SCH ×2 (08:53→20:02)
[2021-01-29] MEDS: DexMEDEtomidine 250 ML DRIP 250 ML IV SCH (09:39)
[2021-01-29 09:49] LABS: BUN/CREATININE RATIO 22; CARBON DIOXIDE 25 MMOL/L (21-32); CHLORIDE 101 MMOL/L (98-107); CREATININE SERUM 0.78 MG/DL (0.60-1.30); GFR ESTIMATED > 60; GLUCOSE 170 MG/DL (70-105); POTASSIUM 3.2 MMOL/L (3.6-5.0); SODIUM 136 MMOL/L (135-145)
[2021-01-29] MEDS ORDERED: LOVA20TA2 PO (14:05)
[2021-01-29] MEDS ORDERED: OMEP-401 PO (14:05)
[2021-01-29] MEDS ORDERED: PIOG45TA65 PO (14:05)
[2021-01-29] MEDS ORDERED: GLIP10TA13 PO (14:05)
[2021-01-29] MEDS ORDERED: DULO60CA59 PO (14:05)
[2021-01-29] MEDS ORDERED: PREG150C46 PO (14:05)
[2021-01-29] MEDS ORDERED: LISI1TAB26 PO (14:05)
[2021-01-29] MEDS ORDERED: CANA100T PO (14:05)
--- NOTE | 2021-01-29 14:22 | Progress Note ---
Subjective Subjective/Events-last exam Afebrile, states his breathing is feeling a little better today than yesterday. Focused Exam Lactate Level 01/27/21 12:50: Lactic Acid Level 1.97 Objective Exam Last Set of Vital Signs Vital Signs Date Time Temp Pulse Resp B/P (MAP) Pulse Ox O2 Delivery O2 Flow Rate FiO2 01/29/21 13:38 48 30 93 85.00 01/29/21 13:00 126/93 (104) NIV Bilevel 01/29/21 12:05 100 01/29/21 12:00 36.9 Capillary Refill : Less Than 3 Seconds I&O Intake and Output 01/29/21 00:00 Intake Total 1610 ml Output Total 700 ml Balance 910 ml Intake Oral 1360 ml IV Total 250 ml Output Urine Total 700 ml # Voids 1 # Bowel Movements 2 General: Alert, No Acute Distress Lungs: Other (rales) Heart: Regular Rate, No Murmurs Neuro: Normal Speech Results/Procedures Lab Laboratory Tests 01/28/21 16:47: Glucometer 364H 01/28/21 20:02: Glucometer 407*H 01/28/21 21:20: White Blood Count 12.8H, Red Blood Count 4.44, Hemoglobin 12.7L, Hematocrit 36L, Mean Corpuscular Volume 80, Mean Corpuscular Hemoglobin 29, Mean Corpuscular Hemoglobin Concent 36, Red Cell Distribution Width 12.3, Platelet Count 215, Mean Platelet Volume 11.5, Immature Granulocyte % (Auto) 1, Neutrophils (%) (Auto) 90H, Lymphocytes (%) (Auto) 7L, Monocytes (%) (Auto) 3, Eosinophils (%) (Auto) 0, Basophils (%) (Auto) 0, Neutrophils # (Auto) 11.5H, Lymphocytes # (Auto) 0.9L, Monocytes # (Auto) 0.3, Eosinophils # (Auto) 0.0, Basophils # (Auto) 0.0, Immature Granulocyte # (Auto) 0.1, Neutrophils % (Manual) 90, Lymphocytes % (Manual) 8, Monocytes % (Manual) 2, Blood Morphology Comment NORMAL, Sodium Level 133L, Potassium Level 3.0L, Chloride Level 96L, Carbon Dioxide Level 23, Anion Gap 14, Blood Urea Nitrogen 19H, Creatinine 1.23, Estimat Glomerular Filtration Rate > 60, BUN/Creatinine Ratio 15, Glucose Level 417*H, Calcium Level 8.1L, Corrected Calcium 8.7, Total Bilirubin 1.0, Aspartate Amino Transf (AST/SGOT) 50H, Alanine Aminotransferase (ALT/SGPT) 50, Alkaline Phosphatase 39L, Total Protein 6.3L, Albumin 3.2, Procalcitonin 0.28H 01/28/21 21:43: Blood Gas Puncture Site RIGHT RADIAL, Blood Gas Patient Temperature 38.6, Yanique rial Blood pH 7.51H, Arterial Blood Partial Pressure CO2 33L, Arterial Blood Partial Pressure O2 85, Arterial Blood HCO3 25, Arterial Blood Total CO2 26.2, Arterial Blood Oxygen Saturation 96, Arterial Blood Base Excess 2.5, Mitchell Test POSITIVE, Blood Gas Ventilator Setting NO, Blood Gas Inspired Oxygen 100% 01/29/21 03:42: White Blood Count 11.4H, Red Blood Count 4.47, Hemoglobin 12.7L, Hematocrit 36L, Mean Corpuscular Volume 80, Mean Corpuscular Hemoglobin 28, Mean Corpuscular Hemoglobin Concent 36, Red Cell Distribution Width 12.2, Platelet Count 217, Mean Platelet Volume 10.9, Immature Granulocyte % (Auto) 1, Neutrophils (%) (Auto) 85H, Lymphocytes (%) (Auto) 11L, Monocytes (%) (Auto) 3, Eosinophils (%) (Auto) 0, Basophils (%) (Auto) 0, Neutrophils # (Auto) 9.7H, Lymphocytes # (Auto) 1.3, Monocytes # (Auto) 0.4, Eosinophils # (Auto) 0.0, Basophils # (Auto) 0.0, Immature Granulocyte # (Auto) 0.1, Sodium Level 138, Potassium Level 3.2L, Chloride Level 100, Carbon Dioxide Level 24, Anion Gap 14, Blood Urea Nitrogen 18, Creatinine 0.96, Estimat Glomerular Filtration Rate > 60, BUN/Creatinine Ratio 19, Glucose Level 151H, Calcium Level 7.9L, Phosphorus Level 2.7, Magnesi um Level 2.2 01/29/21 09:15: Sodium Level 136, Potassium Level 3.2L, Chloride Level 101, Carbon Dioxide Level 25, Anion Gap 10, Blood Urea Nitrogen 17, Creatinine 0.78, Estimat Glomerular Filtration Rate > 60, BUN/Creatinine Ratio 22, Glucose Level 170H, Calcium Level 8.0L 01/29/21 10:22: Glucometer 184H 01/29/21 13:42: Lab Scanned Report Transfusion Reaction Form Microbiology 01/27/21 Blood Culture - Preliminary, Resulted No growth Assessment/Plan Assessment/Plan (1) COVID-19 Status: Acute Assessment & Plan: s/p convalescent plasma, receiving dexamethasone. D/C remdesevir due to significant hypoxia/need for bipap. Appreciate Tele ICU recommendations. D dimer minimally elevated. (2) Acute respiratory failure Status: Acute Assessment & Plan: Secondary to COVID19, requiring bipap, appreciate tele ICU assistance. Qualifiers: Qualified Codes: J96.01 - Acute respiratory failure with hypoxia (3) Diabetes mellitus, type 2 Status: Chronic Assessment & Plan: On levemir 25 units BID inpatient, holding home glipizide, pioglitazone and canagliflozin. Sliding scale insulin. Qualifiers: Qualified Codes: E11.65 - Type 2 diabetes mellitus with hyperglycemia (4) Hypertension Status: Chronic Assessment & Plan: Hold home lisinopril/HCTZ with low normal BP Qualifiers: Qualified Codes: I10 - Essential (primary) hypertension (5) Obesity (BMI 30-39.9) Status: Chronic (6) DVT prophylaxis Status: Acute Assessment & Plan: Enoxaparin PRAKASH BURNHAM MD Jan 29, 2021 14:22
[2021-01-29] MEDS: SIMvastatin 10 MG (ZOCOR) TAB PO SCH (20:02)
[2021-01-29] MEDS ORDERED: PANTOPRAZOLE 20 MG TABLET (PROTONIX) PO SCH (21:00)
[2021-01-30] VITALS (30 sets, daily range): BP systolic 125–157; BP diastolic 55–89
[2021-01-30] MEDS: RT-ALBUTEROL INHALER HFA (VENTOLIN HFA) 18 GM IH SCH ×6 (02:11→21:56)
[2021-01-30 04:02] LABS: BASOPHILS % (AUTO) 0 % (0-10); EOSINOPHILS % (AUTO) 0 % (0-10); HEMATOCRIT 42 % (40-54); HEMOGLOBIN 14.5 g/dL (13.3-17.7); LYMPHOCYTES # (AUTO) 1.3 10^3/uL (1.0-4.0); LYMPHOCYTES % (AUTO) 9 % (12-44); MEAN CORPUSCULAR HEMOGLOBIN 28 pg (25-34); MEAN CORPUSCULAR HGB CONC 34 g/dL (32-36); MEAN CORPUSCULAR VOLUME 82 fL (80-99); MEAN PLATELET VOLUME 10.7 fL (9.0-12.2); MONOCYTES # (AUTO) 0.5 10^3/uL (0.0-1.0); MONOCYTES % (AUTO) 4 % (0-12); NEUTROPHILS # (AUTO) 12.7 10^3/uL (1.8-7.8); NEUTROPHILS % (AUTO) 86 % (42-75); PLATELET COUNT 307 10^3/uL (130-400); WHITE BLOOD COUNT 14.8 10^3/uL (4.3-11.0)
[2021-01-30 04:45] LABS: ABG BASE EXCESS 2.5 MMOL/L (-2.5-2.5); ABG OXYGEN SATURATION 92 % (94-100); ABG PCO2 36 MMHG (35-45); ABG PH 7.47 (7.37-7.43); ABG PO2 60 MMHG (79-93); ABG TCO2 26.8 MMOL/L (21.0-31.0)
[2021-01-30 04:48] LABS: ALLENS TEST YES-POS; INSPIRED O2 100% BIPAP; PATIENT TEMP 99.9; VENTILATOR NO
[2021-01-30 05:14] LABS: BUN/CREATININE RATIO 18; CALCIUM 9.8 MG/DL (8.5-10.1); CARBON DIOXIDE 26 MMOL/L (21-32); CHLORIDE 102 MMOL/L (98-107); CREATININE SERUM 0.95 MG/DL (0.60-1.30); GFR ESTIMATED > 60; GLUCOSE 173 MG/DL (70-105); MAGNESIUM 2.4 MG/DL (1.6-2.4); PHOSPHORUS 3.5 MG/DL (2.3-4.7); POTASSIUM 4.1 MMOL/L (3.6-5.0); SODIUM 140 MMOL/L (135-145)
[2021-01-30] MEDS: inSUlin ASPART (NovoLOG) 1 UNIT/0.01 ML (CHARGE PER UNIT) SC SCH ×4 (05:40→22:50)
[2021-01-30] MEDS: MAGNESIUM 1 GM/100 ML IVPB 100 ML IV SCH (05:40)
[2021-01-30] MEDS: POTASSIUM CL 10MEQ/50ML IVPB 50 ML IV SCH (05:40)
[2021-01-30] MEDS: KCL 20 MEQ TAB (K-DUR) PO SCH (05:40)
[2021-01-30] MEDS: dexAMETHasone 6 MG TAB (DECADRON) PO SCH (06:01)
[2021-01-30] MEDS ORDERED: PROPOFOL DRIP (ICU) 100 ML IV ONE (08:12)
[2021-01-30] MEDS: ENOXAPARIN 40 MG/0.4 ML (LOVENOX) SYR SC SCH ×2 (08:13→20:00)
[2021-01-30] MEDS ORDERED: NS IV 1000 ML 1,000 ML ONE (08:27)
--- NOTE | 2021-01-30 09:03 | Anesthesia-Procedure Note ---
Procedures/Interventions Procedure Start/Stop/Diagnosis Date of Procedure: Jan 30, 2021 Start Time: 08:30 Stop Time: 09:00 Intubation RSI: Yes 100% pre-Ox, [id number]: Yes Intubation Method: orotracheal Videoscope used: Yes Grade View: 1 Medications: Propofol (200), Rocuronium (50), Succinylcholine (100) Mask Ventilation: positive Positive End Tide CO2: Yes Breath Sounds after Intubation: bilateral-equal Intubated with ease: Yes Intubation Complications: no complications, O2 saturation decreased Post Intubation Xray-done: Yes Arterial Line Arterial Line Catheter: 20G Type: Radial Location: Right Procedure: prepped, draped in sterile fashion, 1% lidocaine used to numb region, good wave-form was obtained, patient tolerated procedure well, no immediate complications, post procedure area cleaned, post procedure dressing applied DEENA ELE CRNA Jan 30, 2021 09:03
[2021-01-30] MEDS: fentaNYL INJ 100 MCG/2 ML AMP IVP PRN (09:12)
--- NOTE | 2021-01-30 09:21 | Occ Therapy Progress Note ---
Therapy Progress Note OT orders received. Pt. intubated and sedated. Will continue to follow and assess pt. when medically stable. [id number] EMILY DAVIS OT Jan 30, 2021 09:21
--- NOTE | 2021-01-30 09:34 | Physical Therapy Progress Note ---
Therapy Progress Note Patient just intubated and sedated this a.m. PT will continue to monitor patient status and initiate treatment when patient is able to actively participate with skilled therapy. BHARTI BORREGO PT Jan 30, 2021 09:34
[2021-01-30] MEDS: SENNA W/DOCUSATE (SENOKOT S) TABLET PO SCH ×2 (09:42→19:59)
[2021-01-30] MEDS ORDERED: ROCURONIUM 10 MG/ML 5 ML SYRINGE IV ONE ×2 (09:45)
[2021-01-30] MEDS: DexMEDEtomidine 250 ML DRIP 250 ML IV SCH ×2 (10:04→19:56)
[2021-01-30] MEDS: PROPOFOL DRIP (ICU) 100 ML IV SCH ×3 (10:04→22:51)
--- NOTE | 2021-01-30 10:06 | Diagnostic Imaging Report ---
INDICATION: Intubation, COVID positive. TECHNIQUE: Single view chest 9:22 AM. CORRELATION STUDY: 01/28/2021 FINDINGS: Endotracheal tube has been placed, tip projecting over the trachea interposed between the clavicles. Gastric tube passes beneath left hemidiaphragm. There is very limited, suboptimal depth of inspiration. Scattered bilateral pulmonary opacities are again demonstrated but appear to be overall less pronounced from prior. Asymmetrically elevated right diaphragm. Underlying right pleural effusion not excluded. Heart size remains enlarged. Vasculature appears stable. IMPRESSION: 1. Interval intubation. 2. Bilateral pulmonary opacities again demonstrated but overall appear perhaps slightly diminished and improved. 3. There is new elevated right diaphragm with what appears to be small right pleural effusion. Given asymmetry, possibly of underlying mucous plugging is not excluded. Followup imaging recommended. Dictated by: Dictated on workstation # [id number]
[2021-01-30 10:19] LABS: ABG BASE EXCESS -0.2 MMOL/L (-2.5-2.5); ABG OXYGEN SATURATION 88 % (94-100); ABG PCO2 38 MMHG (35-45); ABG PH 7.42 (7.37-7.43); ABG PO2 53 MMHG (79-93); ABG TCO2 24.9 MMOL/L (21.0-31.0)
[2021-01-30 10:22] LABS: ALLENS TEST YES-POS
[2021-01-30 10:23] LABS: INSPIRED O2 100%; VENTILATOR YES
[2021-01-30] MEDS: RT--FLUTICASONE/SALMETEROL 232-14 (AIRDUO RespiCLICK) IH SCH ×2 (10:48→21:56)
--- NOTE | 2021-01-30 11:33 | Progress Note ---
Subjective Subjective/Events-last exam Continued worsening hypoxia and work of breathing in spite of being on bipap at 100% FiO2, Marcia discussed intubation with him this morning and he agreed. Just intubated shortly prior to my exam, and he is still restless and moving head side to side, sedation being adjusted. Focused Exam Lactate Level 01/27/21 12:50: Lactic Acid Level 1.97 Objective Exam Last Set of Vital Signs Vital Signs Date Time Temp Pulse Resp B/P (MAP) Pulse Ox O2 Delivery O2 Flow Rate FiO2 01/30/21 11:00 59 26 140/66 (90) 93 Mechanical Ventilator 100.00 01/30/21 10:49 100 01/30/21 03:00 38.1 Capillary Refill : Less Than 3 Seconds I&O Intake and Output 01/30/21 00:00 Intake Total 1000 ml Output Total 1175 ml Balance -175 ml Intake Oral 320 ml IV Total 680 ml Output Urine Total 1175 ml # Voids 1 General: Moderate Distress (sedated and intubated, but still restless) Lungs: Other (ronchi throughout) Heart: Regular Rate Abdomen: Normal Bowel Sounds, Soft Extremities: No Edema Skin: Other (diaphoretic) Results/Procedures Lab Laboratory Tests 01/29/21 13:42: Lab Scanned Report Transfusion Reaction Form 01/29/21 15:23: Glucometer 211H 01/29/21 20:01: Glucometer 220H 01/30/21 03:35: White Blood Count 14.8H, Red Blood Count 5.17, Hemoglobin 14.5, Hematocrit 42, Mean Corpuscular Volume 82, Mean Corpuscular Hemoglobin 28, Mean Corpuscular Hemoglobin Concent 34, Red Cell Distribution Width 12.5, Platelet Count 307, Mean Platelet Volume 10.7, Immature Granulocyte % (Auto) 1, Neutrophils (%) (Auto) 86H, Lymphocytes (%) (Auto) 9L, Monocytes (%) (Auto) 4, Eosinophils (%) (Auto) 0, Basophils (%) (Auto) 0, Neutrophils # (Auto) 12.7H, Lymphocytes # (Auto) 1.3, Monocytes # (Auto) 0.5, Eosinophils # (Auto) 0.0, Basophils # (Auto) 0.0, Immature Granulocyte # (Auto) 0.2H, Sodium Level 140, Potassium Level 4.1, Chloride Level 102, Carbon Dioxide Level 26, Anion Gap 12, Blood Urea Nitrogen 17, Creatinine 0.95, Estimat Glomerular Filtration Rate > 60, BUN/Creatinine Ratio 18, Glucose Level 173H, Calcium Level 9.8, Phosphorus Level 3.5, Magnesium Level 2.4 01/30/21 03:55: Procalcitonin 0.40H 01/30/21 04:38: Blood Gas Puncture Site L RAD, Blood Gas Patient Temperature 99.9, Arterial Blood pH 7.47H, Arterial Blood Partial Pressure CO2 36, Arterial Blood Partial Pressure O2 60L, Arterial Blood HCO3 26, Arterial Blood Total CO2 26.8, Arterial Blood Oxygen Saturation 92L, Arterial Blood Base Excess 2.5, Mitchell Test YES-POS, Blood Gas Ventilator Setting NO, Blood Gas Inspired Oxygen 100% BIPAP 01/30/21 09:11: Glucometer 200H 01/30/21 10:05: Blood Gas Puncture Site RT RADIAL ART LINE, Blood Gas Patient Temperature 37.0, Arterial Blood pH 7.42, Arterial Blood Partial Pressure CO2 38, Arterial Blood Partial Pressure O2 53L, Arterial Blood HCO3 24, Arterial Blood Total CO2 24.9, Arterial Blood Oxygen Saturation 88L, Arterial Blood Base Excess -0.2, Mitchell Test YES-POS, Blood Gas Ventilator Setting YES, Blood Gas Inspired Oxygen 100% 01/30/21 11:08: Glucometer 237H Microbiology 01/28/21 MRSA Screen - Final, Complete MRSA not isolated 01/27/21 Blood Culture - Preliminary, Resulted No growth Assessment/Plan Assessment/Plan (1) COVID-19 Status: Acute Assessment & Plan: s/p convalescent plasma, receiving dexamethasone. D/C remdesevir due to significant hypoxia/need for bipap. Appreciate Tele ICU recommendations. D dimer minimally elevated. (2) Acute respiratory failure Status: Acute Assessment & Plan: Secondary to COVID19, requiring bipap, appreciate tele ICU assistance. 01/30 continued worsening, required intubation and mechanical ventilation starting this am, appreciate Marcia recommendations. Qualifiers: Qualified Codes: J96.01 - Acute respiratory failure with hypoxia (3) Diabetes mellitus, type 2 Status: Chronic Assessment & Plan: On levemir 25 units BID inpatient, holding home glipizide, pioglitazone and canagliflozin. Sliding scale insulin. 01/30 glucose all above 200, will increase levemir to 28 units BID. Qualifiers: Qualified Codes: E11.65 - Type 2 diabetes mellitus with hyperglycemia (4) Hypertension Status: Chronic Assessment & Plan: Hold home lisinopril/HCTZ with low normal BP 01/30 BP increased but not significantly hypertensive, monitor and resume a ntihypertensive as needed Qualifiers: Qualified Codes: I10 - Essential (primary) hypertension (5) Obesity (BMI 30-39.9) Status: Chronic (6) DVT prophylaxis Status: Acute Assessment & Plan: Enoxaparin PRAKASH BURNHAM MD Jan 30, 2021 11:33
--- NOTE | 2021-01-30 12:04 | Pulmonary Progress Note ---
Subjective Date Seen by a Provider: Jan 30, 2021 Time Seen by a Provider: 12:04 Sepsis Event Evaluation Height, Weight, BMI Height: 5'11" Weight: 305lbs. oz. 138.563013xb; 39.92 BMI Method:Stated Focused Exam Lactate Level 01/27/21 12:50: Lactic Acid Level 1.97 Exam Exam Patient acknowledged, consented, and participated in this virtual visit which was conducted using real time audio/video Vital Signs Date Time Temp Pulse Resp B/P (MAP) Pulse Ox O2 Delivery O2 Flow Rate FiO2 01/30/21 11:00 59 26 140/66 (90) 93 Mechanical Ventilator 100.00 01/30/21 10:49 60 26 94 100 01/30/21 10:04 85 01/30/21 10:04 78 134/73 01/30/21 10:04 65 134/74 01/30/21 10:00 67 26 125/78 (94) 84 Mechanical Ventilator 100.00 01/30/21 09:18 78 26 79 100 01/30/21 09:00 68 88 Mechanical Ventilator 100.00 01/30/21 08:43 78 19 79 100 01/30/21 08:11 NIV Bilevel 100 01/30/21 08:00 64 32 134/88 (103) 88 NIV Bilevel 100.00 01/30/21 07:03 61 38 91 100.00 01/30/21 07:00 58 52 133/89 (104) 92 NIV Bilevel 100.00 01/30/21 06:34 64 01/30/21 06:06 62 19 141/86 (103) 93 NIV Bilevel 100.00 01/30/21 05:00 58 131/72 (91) 91 NIV Bilevel 100.00 01/30/21 04:00 61 35 157/84 (107) 92 NIV Bilevel 100.00 01/30/21 03:01 NIV Bilevel 100 01/30/21 03:00 60 142/74 (96) 93 NIV Bilevel 100.00 01/30/21 03:00 38.1 01/30/21 02:11 56 33 93 100.00 01/30/21 02:00 58 39 132/76 (94) 87 NIV Bilevel 100.00 01/30/21 01:00 55 136/72 (93) 93 NIV Bilevel 100.00 01/30/21 01:00 55 01/30/21 00:00 37.5 01/30/21 00:00 61 36 128/71 (90) 88 NIV Bilevel 100.00 01/29/21 23:31 NIV Bilevel 100 01/29/21 23:00 64 35 106/67 (80) 93 NIV Bilevel 100.00 01/29/21 22:00 67 28 127/72 (88) 89 NIV Bilevel 100.00 01/29/21 21:42 61 32 90 100.00 01/29/21 21:00 67 33 141/81 (98) 91 NIV Bilevel 100.00 01/29/21 20:38 NIV Bilevel 100 01/29/21 20:00 86 29 134/77 (93) 88 NIV Bilevel 100.00 01/29/21 19:55 37.6 60 32 149/95 (113) 91 NIV Bilevel 80.00 01/29/21 19:00 65 01/29/21 19:00 65 28 149/95 (113) 91 NIV Bilevel 80.00 01/29/21 18:41 67 34 91 80.00 01/29/21 18:00 64 38 149/88 (108) 93 NIV Bilevel 80.00 01/29/21 17:00 57 37 154/88 (110) 92 NIV Bilevel 80.00 01/29/21 16:31 NIV Bilevel 85 01/29/21 16:24 NIV Bilevel 80.00 01/29/21 16:00 62 18 168/126 (140) 98 NIV Bilevel 85.00 01/29/21 15:47 36.4 01/29/21 15:13 92 Vapotherm 40.00 100 01/29/21 15:00 49 15 149/102 (118) 96 NIV Bilevel 85.00 01/29/21 14:00 61 39 129/79 (96) 86 NIV Bilevel 85.00 01/29/21 13:38 48 30 93 85.00 01/29/21 13:00 55 29 126/93 (104) 93 NIV Bilevel 75.00 01/29/21 12:51 52 01/29/21 12:05 NIV Bilevel 100 I & O 01/30/21 06:59 Intake Total 1100 ml Output Total 1125 ml Balance -25 ml Height & Weight Height: 5'11" Weight: 305lbs. oz. 138.184650cg; 39.92 BMI Method:Stated General Appearance: No Apparent Distress, Anxious, Chronically ill, Obese HEENT: PERRL/EOMI, Normal ENT Inspection, Pharynx Normal, Moist Mucous Membranes Neck: Full Range of Motion, Normal Inspection, Non Tender Respiratory: Chest Non Tender, Lungs Clear, No Accessory Muscle Use, No Respiratory Distress, Decreased Breath Sounds Cardiovascular: Regular Rate, Rhythm, No Edema, No Gallop, No JVD, No Murmur, Normal Peripheral Pulses Capillary Refill: Less Than 3 Seconds Gastrointestinal: normal bowel sounds, non tender, soft Extremity: Normal Capillary Refill, Normal Inspection, Normal Range of Motion, Non Tender, No Calf Tenderness, No Pedal Edema Neurologic/Psychiatric: Alert, Oriented x3, No Motor/Sensory Deficits, Normal Mood/Affect Skin: Normal Color, Warm/Dry Lymphatic: No Adenopathy Results Lab Laboratory Tests 01/28/21 21:20 01/29/21 03:42 01/29/21 09:15 01/30/21 03:35 Assessment/Plan Assessment/Plan (Tele-ICU Physician , Progress Note ) Available chart/ vitals / labs / Images reviewed Video assessment done using teleICU camera, rest of exam as per RN Discussed with RN Events overnight : low grade fever 01/30 hemodynamically stable, no pressors, I/O = neg 170 Drips: propofol As per RN exam : Consultants: CXR r 01/28 eport reviewed.has bilateral opacities 01/30 - increased RLL density - atelectais ? blood cx 01/27 - neg sputum 01/30 Urine 01/30 Hospital course: 01/27=40 y/o with Hx of DM2, possible CONCEPCIÓN, non compliant with meds. Came in for COVID-19 01/29-ICU for increased WOB and worsening hypoxia. Was on high flow @ 40 kpm with FiO2 100%, now back on BiPAP 12/8 FiO2 90%. 01/30- BiPAP 15/8 FiO2 100%. rr 28 tv 800, MV 28L= > intubated A/P Acute reps failur - , hypoxic , Covid PNA - BiPAP 15/8 FiO2 100%. rr 28 tv 800, MV 28L- discussed with patient and RN in room - patient is getting tired with this WOB , looks laboured -01/30 decided to intubate , patient agreed - intubated without complications , will attempt proning latter today 2pm - 5 am . RLL atelectasis - to follow COVID19 Remdesivir Decadron PO 6 - to IV 01/30 , increased dose ddimet 0.5 01/27 -> lovenox proph dose DM II - levemir 25, ISShold levemir today - follow on NPO Leukocytosis - ? steroids - follow sputum cx and PCT , RLL atelectasis vs infiltrate - off ABX possible CONCEPCIÓN Lines : 01/30 PICC , (Central Line Necessity Reviewed) Lucero: 01/30 O/22 Nutrition: not yet Analgesia: fentanl prn Anxiety/ delirium = propofol , intubated 01/30 = AAO VTE Prophylaxis: Jair 40 q12 Stress Ulcer Prophylaxis: PPI Glycemic Control: + Plans in collaboration with bedside consultants and IM MDs. Discussed with Dr. Trejo Discussed with RN to reach out if any questions or concerns A total of 45 minutes of critical care time was devoted to this patient today, required to treat and/or prevent further deterioration of critical care condition ( as above ) . CLARK YOUNG MD Jan 30, 2021 12:04
[2021-01-30] MEDS ORDERED: fentaNYL DRIP PRE-MIX 250 ML IV ONE ×2 (12:19→19:25)
[2021-01-30] MEDS: fentaNYL DRIP PRE-MIX 250 ML IV SCH (12:23)
[2021-01-30] MEDS ORDERED: SUCCINYLCHOLINE INJ 100 MG/5 ML SYR/VIAL INJ ONE (13:08)
[2021-01-30] MEDS ORDERED: ROCURONIUM 50 MG/5 ML (ZEMURON) VIAL IV ONE (13:08)
[2021-01-30] MEDS ORDERED: MIDAZOLAM 5 MG/5 ML (VERSED) VIAL IJ ONE (13:21)
[2021-01-30 16:09] LABS: BILIRUBIN,URINE NEGATIVE (NEGATIVE); CLARITY,URINE CLEAR; COLOR,URINE YELLOW; GLUCOSE, URINE (UA) 2+ (NEGATIVE); KETONES,URINE NEGATIVE (NEGATIVE); LEUKOCYTE ESTERASE ,URINE NEGATIVE (NEGATIVE); NITRITE,URINE NEGATIVE (NEGATIVE); PROTEIN,URINE NEGATIVE (NEGATIVE)
[2021-01-30 16:18] LABS: BACTERIA,URINE TRACE /HPF; HYALINE CASTS, URINE 0-2 /LPF; RBC,URINE RARE /HPF; URIC ACID CRYSTALS,URINE MODERATE /LPF; WBC,URINE 0-2 /HPF
[2021-01-30] MEDS: SIMvastatin 10 MG (ZOCOR) TAB PO SCH (20:00)
[2021-01-31] VITALS (31 sets, daily range): BP systolic 85–136; BP diastolic 42–73
[2021-01-31] MEDS: fentaNYL DRIP PRE-MIX 250 ML IV SCH ×3 (01:33→19:34)
[2021-01-31 01:39] LABS: ABG BASE EXCESS 0.6 MMOL/L (-2.5-2.5); ABG OXYGEN SATURATION 98 % (94-100); ABG PCO2 31 MMHG (35-45); ABG PO2 84 MMHG (79-93); ABG TCO2 24.5 MMOL/L (21.0-31.0)
[2021-01-31 01:43] LABS: ALLENS TEST ART LINE; INSPIRED O2 75%; VENTILATOR YES
[2021-01-31 01:44] LABS: BASOPHILS % (AUTO) 0 % (0-10); EOSINOPHILS % (AUTO) 0 % (0-10); HEMATOCRIT 39 % (40-54); HEMOGLOBIN 13.8 g/dL (13.3-17.7); LYMPHOCYTES # (AUTO) 0.9 10^3/uL (1.0-4.0); LYMPHOCYTES % (AUTO) 8 % (12-44); MEAN CORPUSCULAR HEMOGLOBIN 29 pg (25-34); MEAN CORPUSCULAR HGB CONC 36 g/dL (32-36); MEAN CORPUSCULAR VOLUME 80 fL (80-99); MEAN PLATELET VOLUME 10.2 fL (9.0-12.2); MONOCYTES # (AUTO) 0.4 10^3/uL (0.0-1.0); MONOCYTES % (AUTO) 4 % (0-12); NEUTROPHILS # (AUTO) 10.2 10^3/uL (1.8-7.8); NEUTROPHILS % (AUTO) 87 % (42-75); PATIENT TEMP 36.7; PLATELET COUNT 347 10^3/uL (130-400); WHITE BLOOD COUNT 11.7 10^3/uL (4.3-11.0)
[2021-01-31 02:03] LABS: ALBUMIN 2.8 GM/DL (3.2-4.5); CALCIUM 8.4 MG/DL (8.5-10.1); CREATININE SERUM 1.67 MG/DL (0.60-1.30); MAGNESIUM 2.6 MG/DL (1.6-2.4); PHOSPHORUS 4.4 MG/DL (2.3-4.7); POTASSIUM 3.7 MMOL/L (3.6-5.0)
[2021-01-31] MEDS: POTASSIUM CL 10MEQ/50ML IVPB 50 ML IV SCH (02:10)
[2021-01-31] MEDS: MAGNESIUM 1 GM/100 ML IVPB 100 ML IV SCH (02:10)
[2021-01-31] MEDS: KCL 20 MEQ TAB (K-DUR) PO SCH (02:11)
[2021-01-31] MEDS: RT-ALBUTEROL INHALER HFA (VENTOLIN HFA) 18 GM IH SCH ×6 (02:24→22:40)
[2021-01-31] MEDS ORDERED: NS IV 500 ML 500 ML IV SCH (04:30)
[2021-01-31] MEDS ORDERED: NOREPINEPHRINE 8 MG/250 ML 250 ML IV ONE (04:32)
[2021-01-31] MEDS ORDERED: NS IV 500 ML 500 ML ONE (04:32)
[2021-01-31] MEDS: NOREPINEPHRINE 8 MG/250 ML 250 ML IV SCH ×2 (04:39→16:45)
[2021-01-31 04:43] LABS: ABG BASE EXCESS -1.2 MMOL/L (-2.5-2.5); ABG OXYGEN SATURATION 93 % (94-100); ABG PCO2 36 MMHG (35-45); ABG PH 7.42 (7.37-7.43); ABG PO2 65 MMHG (79-93); ABG TCO2 23.8 MMOL/L (21.0-31.0)
[2021-01-31 04:46] LABS: ALLENS TEST ART LINE; INSPIRED O2 70%
[2021-01-31 04:47] LABS: PATIENT TEMP 36.8; VENTILATOR YES
[2021-01-31] MEDS: PROPOFOL DRIP (ICU) 100 ML IV SCH ×5 (04:51→17:41)
[2021-01-31] MEDS: inSUlin ASPART (NovoLOG) 1 UNIT/0.01 ML (CHARGE PER UNIT) SC SCH ×4 (04:57→22:46)
[2021-01-31 05:03] LABS: BASOPHILS % (AUTO) 0 % (0-10); EOSINOPHILS % (AUTO) 0 % (0-10); HEMATOCRIT 40 % (40-54); HEMOGLOBIN 13.9 g/dL (13.3-17.7); LYMPHOCYTES # (AUTO) 1.3 10^3/uL (1.0-4.0); LYMPHOCYTES % (AUTO) 10 % (12-44); MEAN CORPUSCULAR HEMOGLOBIN 28 pg (25-34); MEAN CORPUSCULAR HGB CONC 35 g/dL (32-36); MEAN CORPUSCULAR VOLUME 81 fL (80-99); MEAN PLATELET VOLUME 10.2 fL (9.0-12.2); MONOCYTES # (AUTO) 0.4 10^3/uL (0.0-1.0); MONOCYTES % (AUTO) 3 % (0-12); NEUTROPHILS # (AUTO) 10.5 10^3/uL (1.8-7.8); NEUTROPHILS % (AUTO) 85 % (42-75); PLATELET COUNT 381 10^3/uL (130-400); WHITE BLOOD COUNT 12.5 10^3/uL (4.3-11.0)
[2021-01-31 05:24] LABS: ALBUMIN 2.8 GM/DL (3.2-4.5); CALCIUM 8.4 MG/DL (8.5-10.1); CREATININE SERUM 1.78 MG/DL (0.60-1.30); POTASSIUM 3.7 MMOL/L (3.6-5.0); TOTAL PROTEIN 6.1 GM/DL (6.4-8.2)
[2021-01-31 05:29] LABS: LYMPHOCYTES % (MANUAL) 11 %; MONOCYTES % (MANUAL) 4 %; NEUTROPHILS % (MANUAL) 85 %; RBC MORPH NORMAL
--- NOTE | 2021-01-31 05:54 | Diagnostic Imaging Report ---
EXAMINATION: Portable erect AP chest at 4:29 AM INDICATION: Respiratory distress, Covid There is a better inspiratory effort on this study than on the prior exam of 01/30/2021. Allowing for this technical factor, the heart is stable in size. There are still alveolar/interstitial pulmonary infiltrates involving both lung bases and to a lesser extent the upper lobes. However, the right lung base does seem somewhat better aerated than on the prior exam. There still appears to be a small amount of fluid in each lung base. The mediastinum is not widened. The osseous structures are intact. The ET tube and NG line seen previously are again evident and no different. IMPRESSION: The appearance of the chest has improved somewhat since the prior exam as the right lung base does seem slightly better aerated. There is still persistent areas of pneumonia/atelectasis and fluid involving each lung, however. A follow-up exam would be recommended for continued study. Dictated by: Dictated on workstation # [id number]
[2021-01-31] MEDS: RT--FLUTICASONE/SALMETEROL 232-14 (AIRDUO RespiCLICK) IH SCH ×2 (06:35→19:40)
--- NOTE | 2021-01-31 08:00 | Physical Therapy Progress Note ---
Therapy Progress Note Patient remains intubated and sedated. Will continue to monitor. BOBBI ROBLES PT Jan 31, 2021 08:00
--- NOTE | 2021-01-31 08:14 | Tele-ICU Progress Note ---
Subjective Date Seen by a Provider: Jan 31, 2021 Time Seen by a Provider: 10:22 Subjective/Events-last exam Intubated last night due to hypoxia, now on AC 26, Vt 520, PEEP 14 FiO2 100%, Now on IV propofol 60, on IV Fentanyl 125, vent alarming at times before sedation Off Precedex due to bracycardia, off IV levo, BP ok MAP 70's Laboratory Tests Test 01/30/21 04:38 01/30/21 10:05 01/31/21 01:29 01/31/21 04:37 Blood Gas Puncture Site L RAD RT RADIAL ART LINE RT ARTLINE ART LINE Blood Gas Patient Temperature 99.9 37.0 36.7 36.8 Arterial Blood pH 7.47 7.42 7.50 7.42 Arterial Blood Partial Pressure CO2 36 MMHG 38 MMHG 31 MMHG 36 MMHG Arterial Blood Partial Pressure O2 60 MMHG 53 MMHG 84 MMHG 65 MMHG Arterial Blood HCO3 26 MMOL/L 24 MMOL/L 24 MMOL/L 23 MMOL/L Arterial Blood Total CO2 26.8 MMOL/L 24.9 MMOL/L 24.5 MMOL/L 23.8 MMOL/L Arterial Blood Oxygen Saturation 92 % 88 % 98 % 93 % Arterial Blood Base Excess 2.5 MMOL/L -0.2 MMOL/L 0.6 MMOL/L -1.2 MMOL/L Mitchell Test YES-POS YES-POS ART LINE ART LINE Blood Gas Ventilator Setting NO YES YES YES Blood Gas Inspired Oxygen 100% BIPAP 100% 75% 70% Sepsis Event Evaluation Height, Weight, BMI Height: 5'11" Weight: 305lbs. oz. 138.040348ck; 39.92 BMI Method:Stated Focused Exam Lactate Level 01/31/21 04:44: Lactic Acid Level 3.12*H 01/31/21 06:08: Lactic Acid Level 1.59 Lactic Acid Level Laboratory Tests Test 01/31/21 04:44 01/31/21 06:08 Lactic Acid Level 3.12 MMOL/L (0.50-2.00) *H 1.59 MMOL/L (0.50-2.00) Exam Exam Patient acknowledged, consented, and participated in this virtual visit which was conducted using real time audio/video Vital Signs Date Time Temp Pulse Resp B/P (MAP) Pulse Ox O2 Delivery O2 Flow Rate FiO2 01/31/21 06:37 50 26 96 100 01/31/21 06:04 92/54 01/31/21 06:00 54 26 93/54 (67) 93 Mechanical Ventilator 100.00 01/31/21 05:19 92/46 01/31/21 05:14 Mechanical Ventilator 100.00 01/31/21 05:11 Mechanical Ventilator 90.00 01/31/21 05:02 141/60 01/31/21 05:01 Mechanical Ventilator 80.00 01/31/21 05:00 66 28 96/54 (68) 90 Mechanical Ventilator 70.00 01/31/21 05:00 115/62 01/31/21 04:52 128/59 01/31/21 04:51 64 36 94 70 01/31/21 04:51 128/59 01/31/21 04:45 149/75 01/31/21 04:39 91/50 01/31/21 04:00 57 26 118/73 (88) 95 Mechanical Ventilator 70.00 01/31/21 03:04 Mechanical Ventilator 85 01/31/21 03:00 55 26 119/73 (88) 95 Mechanical Ventilator 70.00 01/31/21 02:45 36.7 01/31/21 02:24 54 26 95 75 01/31/21 02:10 Mechanical Ventilator 70.00 01/31/21 02:00 53 26 117/73 (88) 96 Mechanical Ventilator 75.00 01/31/21 01:00 52 01/31/21 01:00 52 26 118/73 (88) 96 Mechanical Ventilator 75.00 01/31/21 00:00 51 26 124/72 (89) 96 Mechanical Ventilator 75.00 01/30/21 23:04 Mechanical Ventilator 85 01/30/21 23:00 51 26 137/72 (93) 96 Mechanical Ventilator 75.00 01/30/21 22:53 Mechanical Ventilator 75.00 01/30/21 22:51 139/71 01/30/21 22:51 139/71 01/30/21 22:48 36.6 01/30/21 22:00 50 26 142/72 (95) 96 Mechanical Ventilator 80.00 01/30/21 21:59 Mechanical Ventilator 80.00 01/30/21 21:57 49 26 96 85 01/30/21 21:00 51 26 144/73 (96) 97 Mechanical Ventilator 85.00 01/30/21 20:06 Mechanical Ventilator 85 01/30/21 20:00 50 33 144/73 (96) 95 Mechanical Ventilator 85.00 01/30/21 19:57 36.6 Mechanical Ventilator 85.00 01/30/21 19:56 50 01/30/21 19:05 49 26 148/74 (98) 96 Mechanical Ventilator 90.00 01/30/21 19:00 50 01/30/21 19:00 Mechanical Ventilator 90.00 01/30/21 18:33 50 26 97 100 01/30/21 18:00 48 26 149/76 (100) 98 Mechanical Ventilator 100.00 01/30/21 17:00 49 9 150/76 (100) 97 Mechanical Ventilator 100.00 01/30/21 16:51 54 149/75 01/30/21 16:20 Mechanical Ventilator 100 01/30/21 16:00 54 26 146/73 (97) 90 Mechanical Ventilator 100.00 01/30/21 15:00 59 33 130/56 (80) 91 Mechanical Ventilator 100.00 01/30/21 14:58 58 26 90 100 01/30/21 14:00 48 26 139/75 (96) 95 Mechanical Ventilator 100.00 01/30/21 13:00 47 26 147/74 (98) 95 Mechanical Ventilator 100.00 01/30/21 12:23 48 01/30/21 12:15 Mechanical Ventilator 100 01/30/21 12:00 49 26 151/76 (101) 95 Mechanical Ventilator 100.00 01/30/21 11:00 59 26 140/66 (90) 93 Mechanical Ventilator 100.00 01/30/21 10:49 60 26 94 100 01/30/21 10:04 85 01/30/21 10:04 78 134/73 01/30/21 10:04 65 134/74 01/30/21 10:00 67 26 125/78 (94) 84 Mechanical Ventilator 100.00 01/30/21 09:18 78 26 79 100 01/30/21 09:00 68 88 Mechanical Ventilator 100.00 01/30/21 08:43 78 19 79 100 01/30/21 08:11 NIV Bilevel 100 I & O 01/31/21 06:59 Intake Total 1150 ml Output Total 1230 ml Balance -80 ml Height & Weight Height: 5'11" Weight: 305lbs. oz. 138.500008wn; 39.92 BMI Method:Stated General Appearance: No Apparent Distress, Anxious, Chronically ill, Obese, Other (sedated) HEENT: PERRL/EOMI, Normal ENT Inspection, Pharynx Normal, Moist Mucous Membranes Neck: Full Range of Motion, Normal Inspection, Non Tender Respiratory: Chest Non Tender, Lungs Clear, No Accessory Muscle Use, No Respiratory Distress, Decreased Breath Sounds Cardiovascular: Regular Rate, Rhythm, No Edema, No Gallop, No JVD, No Murmur, Normal Peripheral Pulses, Bradycardia Capillary Refill: Less Than 3 Seconds Gastrointestinal: normal bowel sounds, non tender, soft Extremity: Normal Capillary Refill, Normal Inspection, Normal Range of Motion, Non Tender, No Calf Tenderness, No Pedal Edema Neurologic/Psychiatric: Alert, Oriented x3, No Motor/Sensory Deficits, Normal Mood/Affect Skin: Normal Color, Warm/Dry Lymphatic: No Adenopathy Results Lab Laboratory Tests 01/29/21 09:15 01/30/21 03:35 01/31/21 01:29 01/31/21 04:44 Assessment/Plan Assessment/Plan COVID PNA worsening, pt intubated will leave on full vent support until oxygenation and CXR improve O/22 Nutrition: not yet Analgesia: fentanl prn Anxiety/ delirium = propofol , intubated 01/30 = AAO VTE Prophylaxis: Jair 40 q12 Stress Ulcer Prophylaxis: PPI Glycemic Control: + Will need TF will order-ordered [facility] per sanitation worker's note Cr up at 1.78, will keep hydrated, not on maintenance fluid, will start normal saline @ 83 mL/H Critical Care: Critically Ill Patient Time spent with patient (mins): 20 TWAN HORNER MD Jan 31, 2021 08:14
[2021-01-31] MEDS: SENNA W/DOCUSATE (SENOKOT S) TABLET PO SCH ×2 (08:40→19:35)
[2021-01-31] MEDS: PANTOPRAZOLE 40 MG (PROTONIX) VIAL IV SCH (08:40)
[2021-01-31] MEDS: ENOXAPARIN 40 MG/0.4 ML (LOVENOX) SYR SC SCH ×2 (08:40→19:35)
--- NOTE | 2021-01-31 10:41 | Progress Note ---
Subjective Subjective/Events-last exam Afebrile, but persistent poor respiratory status, worsening bradycardia and with new hypotension and acute kidney injury overnight. Focused Exam Lactate Level 01/31/21 04:44: Lactic Acid Level 3.12*H 01/31/21 06:08: Lactic Acid Level 1.59 Objective Exam Last Set of Vital Signs Vital Signs Date Time Temp Pulse Resp B/P (MAP) Pulse Ox O2 Delivery O2 Flow Rate FiO2 01/31/21 08:16 36.4 01/31/21 08:00 Mechanical Ventilator 100 01/31/21 08:00 48 26 136/59 (84) 97 100.00 Capillary Refill : Less Than 3 Seconds I&O Intake and Output 01/30/21 23:59 Intake Total 600 ml Output Total 880 ml Balance -280 ml Intake Oral 150 ml IV Total 450 ml Output Urine Total 880 ml General: Other (sedated, intubated) Lungs: Other (ronchi) Heart: No Murmurs, Other (bradycardic) Abdomen: Normal Bowel Sounds, Soft Extremities: No Edema, Normal Pulses Results/Procedures Lab Laboratory Tests 01/30/21 11:08: Glucometer 237H 01/30/21 16:00: Urine Color YELLOW, Urine Clarity CLEAR, Urine pH 6.0, Urine Specific [place] 1.020, Urine Protein NEGATIVE, Urine Glucose (UA) 2+H, Urine Ketones NEGATIVE, Urine Nitrite NEGATIVE, Urine Bilirubin NEGATIVE, Urine Urobilinogen 1.0, Urine Leukocyte Esterase NEGATIVE, Urine RBC (Auto) NEGATIVE, Urine RBC RARE, Urine WBC 0-2, Urine Crystals PRESENTH, Urine Uric Acid Crystals MODERATEH, Urine Bacteria TRACE, Urine Casts PRESENT, Urine Hyaline Casts 0-2H, Urine Mucus SMALLH, Urine Culture Indicated NO 01/30/21 17:00: Glucometer 296H 01/30/21 19:55: Glucometer 286H 01/30/21 22:47: Glucometer 265H 01/31/21 01:29: White Blood Count 11.7H, Red Blood Count 4.81, Hemoglobin 13.8, Hematocrit 39L, Mean Corpuscular Volume 80, Mean Corpuscular Hemoglobin 29, Mean Corpuscular Hemoglobin Concent 36, Red Cell Distribution Width 12.4, Platelet Count 347, Mean Platelet Volume 10.2, Immature Granulocyte % (Auto) 1, Neutrophils (%) (Auto) 87H, Lymphocytes (%) (Auto) 8L, Monocytes (%) (Auto) 4, Eosinophils (%) (Auto) 0, Basophils (%) (Auto) 0, Neutrophils # (Auto) 10.2H, Lymphocytes # (Auto) 0.9L, Monocytes # (Auto) 0.4, Eosinophils # (Auto) 0.0, Basophils # (Auto) 0.0, Immature Granulocyte # (Auto) 0.2H, Blood Gas Puncture Site RT ARTLINE, Blood Gas Patient Temperature 36.7, Arterial Blood pH 7.50H, Arterial Blood Partial Pressure CO2 31L, Arterial Blood Partial Pressure O2 84, Arterial Blood HCO3 24, Arterial Blood Total CO2 24.5, Arterial Blood Oxygen Saturation 98, Arterial Blood Base Excess 0.6, Mitchell Test ART LINE, Blood Gas Ventilator Setting YES, Blood Gas Inspired Oxygen 75%, Sodium Level 141, Potassium Level 3.7, Chloride Level 106, Carbon Dioxide Level 21, Anion Gap 14, Blood Urea Nitrogen 28H, Creatinine 1.67H, Estimat Glomerular Filtration Rate 46, BUN/Creatinine Ratio 17, Glucose Level 230H, Calcium Level 8.4L, Corrected Calcium 9.4, Phosphorus Level 4.4, Magnesium Level 2.6H, Total Bilirubin 1.0, Aspartate Amino Transf (AST/SGOT) 33, Alanine Aminotransferase (ALT/SGPT) 68H, Alkaline Phosphatase 41, Total Protein 6.0L, Albumin 2.8L, Triglycerides Level 160H 01/31/21 04:37: Blood Gas Puncture Site ART LINE, Blood Gas Patient Temperature 36.8, Arterial Blood pH 7.42, Arterial Blood Partial Pressure CO2 36, Arterial Blood Partial Pressure O2 65L, Arterial Blood HCO3 23, Arterial Blood Total CO2 23.8, Arterial Blood Oxygen Saturation 93L, Arterial Blood Base Excess -1.2, Mitchell Test ART LINE, Blood Gas Ventilator Setting YES, Blood Gas Inspired Oxygen 70% 01/31/21 04:44: White Blood Count 12.5H, Red Blood Count 4.95, Hemoglobin 13.9, Hematocrit 40, Mean Corpuscular Volume 81, Mean Corpuscular Hemoglobin 28, Mean Corpuscular Hemoglobin Concent 35, Red Cell Distribution Width 12.4, Platelet Count 381, Mean Platelet Volume 10.2, Immature Granulocyte % (Auto) 2, Neutrophils (%) (Auto) 85H, Lymphocytes (%) (Auto) 10L, Monocytes (%) (Auto) 3, Eosinophils (%) (Auto) 0, Basophils (%) (Auto) 0, Neutrophils # (Auto) 10.5H, Lymphocytes # (Auto) 1.3, Monocytes # (Auto) 0.4, Eosinophils # (Auto) 0.0, Basophils # (Auto) 0.0, Immature Granulocyte # (Auto) 0.2H, Sodium Level 143, Potassium Level 3.7, Chloride Level 108H, Carbon Dioxide Level 21, Anion Gap 14, Blood Urea Nitrogen 30H, Creatinine 1.78H, Estimat Glomerular Filtration Rate 42, BUN/Creatinine Ratio 17, Glucose Level 165H, Calcium Level 8.4L, Corrected Calcium 9.4, Total Bilirubin 1.0, Aspartate Amino Transf (AST/SGOT) 30, Alanine Aminotransferase (ALT/SGPT) 64H, Alkaline Phosphatase 41, Total Protein 6.1L, Albumin 2.8L, N eutrophils % (Manual) 85, Lymphocytes % (Manual) 11, Monocytes % (Manual) 4, Blood Morphology Comment NORMAL, Lactic Acid Level 3.12*H 01/31/21 04:57: Glucometer 154H 01/31/21 06:08: Lactic Acid Level 1.59 Microbiology 01/30/21 Gram Stain - Final, Resulted 01/30/21 Sputum Culture, Resulted Pending 01/27/21 Blood Culture - Preliminary, Resulted No growth Assessment/Plan Assessment/Plan (1) COVID-19 Status: Acute Assessment & Plan: s/p convalescent plasma, receiving dexamethasone. D/C remdesevir due to significant hypoxia/need for bipap. Appreciate Tele ICU recommendations. D dimer minimally elevated. (2) Acute respiratory failure Status: Acute Assessment & Plan: Secondary to COVID19, requiring bipap, appreciate tele ICU assistance. 01/30 continued worsening, required intubation and mechanical ventilation starting this am, appreciate Marcia recommendations. 01/31 difficulty managing hypoxia, remains at 100% FiO2, PEEP increased to 14 per Marcia ICU orders, proning improves status but has difficulty tolerating the turn, had hypotension with turning last night. Qualifiers: Qualified Codes: J96.01 - Acute respiratory failure with hypoxia (3) Diabetes mellitus, type 2 Status: Chronic Assessment & Plan: On levemir 25 units BID inpatient, holding home glipizide, pioglitazone and canagliflozin. Sliding scale insulin. 01/30 glucose all above 200, will increase levemir to 28 units BID. Qualifiers: Qualified Codes: E11.65 - Type 2 diabetes mellitus with hyperglycemia (4) Hypertension Status: Chronic Assessment & Plan: Hold home lisinopril/HCTZ with low normal BP 01/30 BP increased but not significantly hypertensive, monitor and resume antihypertensive as needed Qualifiers: Qualified Codes: I10 - Essential (primary) hypertension (5) Obesity (BMI 30-39.9) Status: Chronic (6) Hypotension Status: Acute Assessment & Plan: Required norepinephrine overnight, resume as needed. Appreciate EICU recommendations. (7) Bradycardia Status: Acute Assessment & Plan: Precedex held, suspect partially related to COVID, remaining in 50s after holding Precedex. (8) Acute renal insufficiency Status: Acute Assessment & Plan: Started on IVF per EICU. (9) On mechanically assisted ventilation Status: Acute (10) At risk for stress ulcer Status: Acute Assessment & Plan: Pantoprazole (11) Impaired nutrition Status: Acute Assessment & Plan: Starting tube feeds. (12) DVT prophylaxis Status: Acute Assessment & Plan: Enoxaparin PRAKASH BURNHAM MD Jan 31, 2021 10:41
[2021-01-31] MEDS ORDERED: fentaNYL DRIP PRE-MIX 250 ML IV ONE ×3 (11:42→23:26)
[2021-01-31] MEDS: NS IV 1000 ML 1,000 ML IV SCH ×2 (12:14→20:57)
--- NOTE | 2021-01-31 14:42 | Occ Therapy Progress Note ---
Therapy Progress Note OT orders received. Pt. intubated and sedated. Will continue to follow and assess pt. when medically stable. MAMADOU HIGHTOWER Jan 31, 2021 14:42
[2021-01-31] MEDS: LORazepam INJECTION FOR DRIP 20 MG in D5W 100 ML IVPB 90 ML IV SCH ×2 (16:15→22:02)
[2021-01-31] MEDS: ACETAMINOPHEN 325 MG TABLET PO PRN ×2 (18:02→21:16)
[2021-01-31] MEDS: SIMvastatin 10 MG (ZOCOR) TAB PO SCH (19:35)
[2021-02-01] VITALS (30 sets, daily range): BP systolic 94–132; BP diastolic 47–73
[2021-02-01] MEDS: PROPOFOL DRIP (ICU) 100 ML IV SCH ×6 (00:01→22:51)
[2021-02-01] MEDS: fentaNYL DRIP PRE-MIX 250 ML IV SCH ×5 (00:52→23:47)
[2021-02-01] MEDS: ACETAMINOPHEN 325 MG TABLET PO PRN ×2 (00:52→09:03)
[2021-02-01] MEDS ORDERED: fentaNYL DRIP PRE-MIX 250 ML IV ONE ×4 (01:42→23:39)
[2021-02-01 01:49] LABS: BASOPHILS % (AUTO) 0 % (0-10); EOSINOPHILS # (AUTO) 0.1 10^3/uL (0.0-0.3); EOSINOPHILS % (AUTO) 0 % (0-10); HEMATOCRIT 38 % (40-54); HEMOGLOBIN 12.9 g/dL (13.3-17.7); LYMPHOCYTES % (AUTO) 7 % (12-44); MEAN CORPUSCULAR HEMOGLOBIN 28 pg (25-34); MEAN CORPUSCULAR HGB CONC 34 g/dL (32-36); MEAN CORPUSCULAR VOLUME 83 fL (80-99); MEAN PLATELET VOLUME 10.2 fL (9.0-12.2); MONOCYTES # (AUTO) 0.6 10^3/uL (0.0-1.0); MONOCYTES % (AUTO) 4 % (0-12); NEUTROPHILS # (AUTO) 12.2 10^3/uL (1.8-7.8); NEUTROPHILS % (AUTO) 86 % (42-75); PLATELET COUNT 446 10^3/uL (130-400); WHITE BLOOD COUNT 14.1 10^3/uL (4.3-11.0)
[2021-02-01 01:58] LABS: POTASSIUM 3.4 MMOL/L (3.6-5.0)
[2021-02-01 01:59] LABS: CALCIUM 7.8 MG/DL (8.5-10.1)
[2021-02-01 02:03] LABS: CREATININE SERUM 1.33 MG/DL (0.60-1.30)
[2021-02-01 02:06] LABS: MAGNESIUM 2.4 MG/DL (1.6-2.4)
[2021-02-01 02:14] LABS: ABG BASE EXCESS -1.3 MMOL/L (-2.5-2.5); ABG OXYGEN SATURATION 94 % (94-100); ABG PCO2 36 MMHG (35-45); ABG PH 7.42 (7.37-7.43); ABG PO2 72 MMHG (79-93); ABG TCO2 23.5 MMOL/L (21.0-31.0)
[2021-02-01] MEDS: POTASSIUM CL 10MEQ/50ML IVPB 50 ML IV SCH ×3 (02:15→03:30)
[2021-02-01] MEDS: KCL 20 MEQ TAB (K-DUR) PO SCH (02:15)
[2021-02-01] MEDS: MAGNESIUM 1 GM/100 ML IVPB 100 ML IV SCH (02:15)
[2021-02-01] MEDS: RT-ALBUTEROL INHALER HFA (VENTOLIN HFA) 18 GM IH SCH ×6 (02:27→21:58)
[2021-02-01 02:34] LABS: ALLENS TEST ARTLINE
[2021-02-01 02:35] LABS: INSPIRED O2 45%; PATIENT TEMP 37.8; VENTILATOR YES
[2021-02-01] MEDS: NOREPINEPHRINE 8 MG/250 ML 250 ML IV SCH ×2 (03:43→15:48)
[2021-02-01] MEDS: LORazepam INJECTION FOR DRIP 20 MG in D5W 100 ML IVPB 90 ML IV SCH ×4 (04:09→22:52)
[2021-02-01] MEDS: inSUlin ASPART (NovoLOG) 1 UNIT/0.01 ML (CHARGE PER UNIT) SC SCH ×4 (05:15→23:44)
[2021-02-01] MEDS: RT--FLUTICASONE/SALMETEROL 232-14 (AIRDUO RespiCLICK) IH SCH ×3 (06:31→22:02)
--- NOTE | 2021-02-01 06:58 | Occ Therapy Progress Note ---
Therapy Progress Note Pt is currently intubated. OT will continue to monitor pt status and initiate treatment when pt is medically stable and able to actively participate with skilled therapy. MAMADOU HIGHTOWER Feb 01, 2021 06:58
--- NOTE | 2021-02-01 07:58 | Physical Therapy Progress Note ---
Therapy Progress Note Patient intubated and sedated this a.m. PT will continue to monitor patient status and initiate treatment when patient is able to actively participate with skilled therapy. BHARTI BORREGO PT Feb 01, 2021 07:58
--- NOTE | 2021-02-01 09:00 | Diagnostic Imaging Report ---
INDICATION: Covid-19 positive and ventilator support. Time of exam: 4:11 AM Correlation is made with prior chest one day earlier. ET tube remains with tip above the debbie. Bilateral pulmonary infiltrates persist and are similar to perhaps minimally improved when compared with yesterday. There is no effusion or pneumothorax. IMPRESSION: Slight improvement in bilateral pulmonary infiltrates when compared with examination one day earlier. Dictated by: Dictated on workstation # [id number]
[2021-02-01] MEDS: SENNA W/DOCUSATE (SENOKOT S) TABLET PO SCH ×2 (09:03→21:24)
[2021-02-01] MEDS: ENOXAPARIN 40 MG/0.4 ML (LOVENOX) SYR SC SCH ×2 (09:03→21:23)
[2021-02-01] MEDS: PANTOPRAZOLE 40 MG (PROTONIX) VIAL IV SCH (09:03)
[2021-02-01] MEDS: NS IV 1000 ML 1,000 ML IV SCH ×2 (13:45)
--- NOTE | 2021-02-01 16:58 | Tele-ICU Progress Note ---
Subjective Date Seen by a Provider: Feb 01, 2021 Time Seen by a Provider: 16:58 Sepsis Event Evaluation Height, Weight, BMI Height: 5'11" Weight: 305lbs. oz. 138.094539dg; 39.92 BMI Method:Stated Focused Exam Lactate Level 01/31/21 04:44: Lactic Acid Level 3.12*H 01/31/21 06:08: Lactic Acid Level 1.59 Exam Exam Patient acknowledged, consented, and participated in this virtual visit which was conducted using real time audio/video Vital Signs Date Time Temp Pulse Resp B/P (MAP) Pulse Ox O2 Delivery O2 Flow Rate FiO2 02/01/21 16:01 Mechanical Ventilator 50 02/01/21 16:00 69 26 94/60 (71) 94 Mechanical Ventilator 50.00 02/01/21 15:00 72 26 98/63 (75) 94 Mechanical Ventilator 50.00 02/01/21 14:00 77 26 98/53 (68) 90 Mechanical Ventilator 50.00 02/01/21 13:43 63 26 92 50 02/01/21 13:00 67 26 131/57 (81) 92 Mechanical Ventilator 50.00 02/01/21 13:00 68 02/01/21 12:09 63 119/57 02/01/21 12:08 63 104/56 02/01/21 12:00 Mechanical Ventilator 50 02/01/21 12:00 66 53 95/47 (63) 93 Mechanical Ventilator 50.00 02/01/21 11:00 63 26 108/58 (75) 94 Mechanical Ventilator 50.00 02/01/21 10:40 64 26 102/56 02/01/21 10:35 64 26 104/56 02/01/21 10:31 64 26 93 50 02/01/21 10:00 69 26 107/57 (74) 92 Mechanical Ventilator 50.00 02/01/21 09:33 37.1 02/01/21 09:03 37.2 02/01/21 09:00 66 26 127/59 (81) 95 Mechanical Ventilator 50.00 02/01/21 08:00 71 26 116/58 (77) 94 Mechanical Ventilator 50.00 02/01/21 08:00 Mechanical Ventilator 50 02/01/21 07:00 80 26 101/60 (74) 93 Mechanical Ventilator 50.00 02/01/21 07:00 79 02/01/21 06:31 82 26 94 50 02/01/21 06:00 81 26 126/69 (88) 97 Mechanical Ventilator 50.00 02/01/21 05:27 110/66 02/01/21 05:27 110/66 02/01/21 05:15 99/49 02/01/21 05:00 82 26 111/59 (76) 94 Mechanical Ventilator 50.00 02/01/21 04:16 126/69 02/01/21 04:12 Mechanical Ventilator 50.00 02/01/21 04:09 80 02/01/21 04:09 135/64 02/01/21 04:02 79/39 02/01/21 04:00 86 17 117/73 (88) 96 Mechanical Ventilator 45.00 02/01/21 03:31 98/61 02/01/21 03:07 Mechanical Ventilator 45 02/01/21 03:00 98 26 105/59 (74) 94 Mechanical Ventilator 45.00 02/01/21 02:28 95 26 95 45 02/01/21 02:00 100 26 109/60 (76) 94 Mechanical Ventilator 45.00 02/01/21 01:14 38.0 02/01/21 01:00 109 02/01/21 01:00 110 26 132/66 (88) 95 Mechanical Ventilator 45.00 02/01/21 00:52 38.1 02/01/21 00:01 114/61 02/01/21 00:00 114/61 02/01/21 00:00 106 26 113/61 (78) 95 Mechanical Ventilator 45.00 01/31/21 23:23 Mechanical Ventilator 45 01/31/21 23:00 113 26 124/56 (78) 93 Mechanical Ventilator 45.00 01/31/21 22:40 111 26 93 45 01/31/21 22:02 112 01/31/21 22:00 111 24 125/58 (80) 94 Mechanical Ventilator 45.00 01/31/21 21:47 38.4 01/31/21 21:20 Mechanical Ventilator 45.00 01/31/21 21:16 38.3 01/31/21 21:00 96 26 121/61 (81) 98 Mechanical Ventilator 50.00 01/31/21 20:00 91 26 124/64 (84) 96 Mechanical Ventilator 50.00 01/31/21 19:58 Mechanical Ventilator 50 01/31/21 19:45 Mechanical Ventilator 50.00 01/31/21 19:41 92 27 97 55 01/31/21 19:00 91 01/31/21 19:00 Mechanical Ventilator 55.00 01/31/21 19:00 90 27 118/61 (80) 97 Mechanical Ventilator 55.00 01/31/21 18:32 38.2 01/31/21 18:02 38.0 01/31/21 18:00 84 33 118/64 (82) 99 Mechanical Ventilator 100.00 01/31/21 17:41 80 104/58 01/31/21 17:41 80 110/55 01/31/21 17:00 78 45 118/64 (82) 94 Mechanical Ventilator 100.00 I & O 02/01/21 07:00 Intake Total 3270 ml Output Total 1850 ml Balance 1420 ml Height & Weight Height: 5'11" Weight: 305lbs. oz. 138.495184nh; 39.92 BMI Method:Stated General Appearance: No Apparent Distress, Anxious, Chronically ill, Obese, Other (sedated) HEENT: PERRL/EOMI, Normal ENT Inspection, Pharynx Normal, Moist Mucous Membranes Neck: Full Range of Motion, Normal Inspection, Non Tender Respiratory: Chest Non Tender, Lungs Clear, No Accessory Muscle Use, No Respiratory Distress, Decreased Breath Sounds Cardiovascular: Regular Rate, Rhythm, No Edema, No Gallop, No JVD, No Murmur, Normal Peripheral Pulses, Bradycardia Capillary Refill: Less Than 3 Seconds Gastrointestinal: normal bowel sounds, non tender, soft Extremity: Normal Capillary Refill, Normal Inspection, Normal Range of Motion, Non Tender, No Calf Tenderness, No Pedal Edema Neurologic/Psychiatric: Alert, Oriented x3, No Motor/Sensory Deficits, Normal Mood/Affect Skin: Normal Color, Warm/Dry Lymphatic: No Adenopathy Results Lab Laboratory Tests 01/31/21 01:29 01/31/21 04:44 02/01/21 01:30 Assessment/Plan Assessment/Plan (Tele-ICU Physician , Progress Note ) Available chart/ vitals / labs / Images reviewed Video assessment done using teleICU camera, rest of exam as per RN can tot reach RN for discussion with multiple attempts Events overnight : had hypotension with turning last night. low grade fever 01/30, and again 02/01 hemodynamically stable, no pressors, I/O = pos 1L Drips: propofol ativan Consultants: CXR r 01/28 eport reviewed.has bilateral opacities 01/30 - increased RLL density - atelectais ? blood cx 01/27 - neg sputum 01/30- ususal jarad Urine 01/30 Hospital course: 01/27=40 y/o with Hx of DM2, possible CONCEPCIÓN, non compliant with meds. Came in for COVID-19 01/29-ICU for increased WOB and worsening hypoxia. Was on high flow @ 40 kpm with FiO2 100%, now back on BiPAP 12/8 FiO2 90%. 01/30- BiPAP 15/8 FiO2 100%. rr 28 tv 800, MV 28L= > intubated 02/01 - shock , started on levo VENT SETTINGS. ac - 1-- % peep 14 , tv 520 rr 26 ABG reviewed SBT - not candidate today vital /Cardiovascular Stability/Sedation Score/FI02/PEEP/ABG/CXR reviewed . A/P Acute reps failur - , hypoxic , Covid PNA - BiPAP 15/8 FiO2 100%. rr 28 tv 800, MV 28L- discussed with patient and RN in room - patient is getting tired with this WOB , looks laboured -01/30 decided to intubate , patient agreed - intubated without complications , cont proning latter today 2pm - 5 am . RLL atelectasis - to follow COVID19 Remdesivir Decadron PO 6 - to IV 01/30 , increased dose ddimet 0.5 01/27 -> lovenox proph dose DM II - levemir increased ISShold levemir today - follow on NPO Leukocytosis - ? steroids - follow sputum cx and PCT , RLL atelectasis vs infiltrate - off ABX - repeat PCT - low treshould to start ABX possible CONCEPCIÓN Lines : 01/30 PICC , (Central Line Necessity Reviewed) Lucero: 01/30 O/22 Nutrition: TF whele supine Analgesia: fentanl prn Anxiety/ delirium = propofol , intubated 01/30 = AAO VTE Prophylaxis: Jair 40 q12 Stress Ulcer Prophylaxis: PPI Glycemic Control: + Plans in collaboration with bedside consultants and IM MDs. RN to reach out if any questions or concerns A total of 45 minutes of critical care time was devoted to this patient today, required to treat and/or prevent further deterioration of critical care c ondition ( as above ) . CLARK YOUNG MD Feb 01, 2021 16:58
--- NOTE | 2021-02-01 17:08 | Progress Note ---
Subjective Subjective/Events-last exam Able to wean FiO2 to 50% and PEEP decreased to 12. Focused Exam Lactate Level 01/31/21 04:44: Lactic Acid Level 3.12*H 01/31/21 06:08: Lactic Acid Level 1.59 Objective Exam Last Set of Vital Signs Vital Signs Date Time Temp Pulse Resp B/P (MAP) Pulse Ox O2 Delivery O2 Flow Rate FiO2 02/01/21 16:01 Mechanical Ventilator 50 02/01/21 16:00 69 26 94/60 (71) 94 50.00 02/01/21 09:33 37.1 Capillary Refill : Less Than 3 Seconds I&O Intake and Output 02/01/21 00:00 Intake Total 2830 ml Output Total 1800 ml Balance 1030 ml Intake Oral 0 ml IV Total 2550 ml Tube Feeding 120 ml Other 160 ml Output Urine Total 1800 ml Lungs: Other (ronchi) Heart: Regular Rate, No Murmurs Abdomen: Normal Bowel Sounds, Soft Extremities: No Edema, Normal Pulses Psych/Mental Status: Other (sedated, intubated) Results/Procedures Lab Laboratory Tests 01/31/21 19:34: Glucometer 177H 01/31/21 22:45: Glucometer 172H 02/01/21 01:30: White Blood Count 14.1H, Red Blood Count 4.62, Hemoglobin 12.9L, Hematocrit 38L, Mean Corpuscular Volume 83, Mean Corpuscular Hemoglobin 28, Mean Corpuscular Hemoglobin Concent 34, Red Cell Distribution Width 12.8, Platelet Count 446H, Mean Platelet Volume 10.2, Immature Granulocyte % (Auto) 2, Neutrophils (%) (Auto) 86H, Lymphocytes (%) (Auto) 7L, Monocytes (%) (Auto) 4, Eosinophils (%) (Auto) 0, Basophils (%) (Auto) 0, Neutrophils # (Auto) 12.2H, Lymphocytes # (Auto) 1.0, Monocytes # (Auto) 0.6, Eosinophils # (Auto) 0.1, Basophils # (Auto) 0.0, Immature Granulocyte # (Auto) 0.3H, Blood Gas Puncture Site R RAD, Blood Gas Patient Temperature 37.8, Arterial Blood pH 7.42, Arterial Blood Partial Pressure CO2 36, Arterial Blood Partial Pressure O2 72L, Arterial Blood HCO3 22L , Arterial Blood Total CO2 23.5, Arterial Blood Oxygen Saturation 94, Arterial Blood Base Excess -1.3, Mitchell Test ARTLINE, Blood Gas Ventilator Setting YES, Blood Gas Inspired Oxygen 45%, Sodium Level 143, Potassium Level 3.4L, Chloride Level 110H, Carbon Dioxide Level 20L, Anion Gap 13, Blood Urea Nitrogen 30H, Creatinine 1.33H, Estimat Glomerular Filtration Rate 59, BUN/Creatinine Ratio 23, Glucose Level 212H, Calcium Level 7.8L, Phosphorus Level 3.0, Magnesium Level 2.4 02/01/21 05:10: Glucometer 189H 02/01/21 11:45: Glucometer 245H Microbiology 01/30/21 Gram Stain - Final, Complete 01/30/21 Sputum Culture - Final, Complete Usual upper respiratory jarad 01/27/21 Blood Culture - Final, Complete No growth Assessment/Plan Assessment/Plan (1) COVID-19 Status: Acute Assessment & Plan: s/p convalescent plasma, receiving dexamethasone. D/C remdesevir due to significant hypoxia/need for bipap. Appreciate Tele ICU recommendations. D dimer minimally elevated. (2) Acute respiratory failure Status: Acute Assessment & Plan: Secondary to COVID19, requiring bipap, appreciate tele ICU assistance. 01/30 continued worsening, required intubation and mechanical ventilation starting this am, appreciate Marcia recommendations. 01/31 difficulty managing hypoxia, remains at 100% FiO2, PEEP increased to 14 per Marcia ICU orders, proning improves status but has difficulty tolerating the turn, had hypotension with turning last night. 02/01 improved oxygenation, appreciate EICU management. Qualifiers: Qualified Codes: J96.01 - Acute respiratory failure with hypoxia (3) Diabetes mellitus, type 2 Status: Chronic Assessment & Plan: On levemir 25 units BID inpatient, holding home glipizide, pioglitazone and canagliflozin. Sliding scale insulin. 01/30 glucose all above 200, will increase levemir to 28 units BID. Qualifiers: Qualified Codes: E11.65 - Type 2 diabetes mellitus with hyperglycemia (4) Hypertension Status: Chronic Assessment & Plan: Hold home lisinopril/HCTZ with low normal BP 01/30 BP increased but not significantly hypertensive, monitor and resume antihypertensive as needed Qualifiers: Qualified Codes: I10 - Essential (primary) hypertension (5) Obesity (BMI 30-39.9) Status: Chronic (6) Hypotension Status: Acute Assessment & Plan: Required norepinephrine overnight, resume as needed. Appreciate EICU recommendations. 02/01 intermittently requiring pressor (7) Bradycardia Status: Acute Assessment & Plan: Precedex held, suspect partially related to COVID, remaining in 50s after holding Precedex. (8) Acute renal insufficiency Status: Acute Assessment & Plan: Started on IVF per EICU. 02/01 trending improved (9) On mechanically assisted ventilation Status: Acute (10) At risk for stress ulcer Status: Acute Assessment & Plan: Pantoprazole (11) Impaired nutrition Status: Acute Assessment & Plan: Tube feeds. (12) DVT prophylaxis Status: Acute Assessment & Plan: Enoxaparin PRAKASH BURNHAM MD Feb 01, 2021 17:08
[2021-02-01] MEDS: SIMvastatin 10 MG (ZOCOR) TAB PO SCH (21:24)
[2021-02-02] VITALS (29 sets, daily range): BP systolic 90–167; BP diastolic 44–73
[2021-02-02] MEDS: NOREPINEPHRINE 8 MG/250 ML 250 ML IV SCH ×2 (01:46→08:24)
[2021-02-02] MEDS: NS IV 1000 ML 1,000 ML IV SCH ×3 (02:09→23:20)
[2021-02-02] MEDS: RT-ALBUTEROL INHALER HFA (VENTOLIN HFA) 18 GM IH SCH ×6 (02:25→22:42)
[2021-02-02 04:16] LABS: ABG BASE EXCESS -2.1 MMOL/L (-2.5-2.5); ABG OXYGEN SATURATION 85 % (94-100); ABG PCO2 37 MMHG (35-45); ABG PO2 57 MMHG (79-93); ABG TCO2 22.7 MMOL/L (21.0-31.0)
[2021-02-02 04:17] LABS: BASOPHILS # (AUTO) 0.1 10^3/uL (0.0-0.1); BASOPHILS % (AUTO) 1 % (0-10); EOSINOPHILS # (AUTO) 0.2 10^3/uL (0.0-0.3); EOSINOPHILS % (AUTO) 1 % (0-10); HEMATOCRIT 37 % (40-54); HEMOGLOBIN 12.4 g/dL (13.3-17.7); LYMPHOCYTES # (AUTO) 1.5 10^3/uL (1.0-4.0); LYMPHOCYTES % (AUTO) 12 % (12-44); MEAN CORPUSCULAR HEMOGLOBIN 28 pg (25-34); MEAN CORPUSCULAR HGB CONC 34 g/dL (32-36); MEAN CORPUSCULAR VOLUME 84 fL (80-99); MEAN PLATELET VOLUME 10.1 fL (9.0-12.2); MONOCYTES # (AUTO) 0.8 10^3/uL (0.0-1.0); MONOCYTES % (AUTO) 6 % (0-12); NEUTROPHILS % (AUTO) 72 % (42-75); PLATELET COUNT 512 10^3/uL (130-400); WHITE BLOOD COUNT 12.4 10^3/uL (4.3-11.0)
[2021-02-02 04:26] LABS: ALLENS TEST ARTLINE
[2021-02-02 04:27] LABS: INSPIRED O2 40%; PATIENT TEMP 38.7; VENTILATOR YES
[2021-02-02] MEDS: ACETAMINOPHEN 325 MG TABLET PO PRN ×3 (04:34→23:19)
[2021-02-02] MEDS: LORazepam INJECTION FOR DRIP 20 MG in D5W 100 ML IVPB 90 ML IV SCH ×4 (04:40→21:41)
[2021-02-02 04:43] LABS: CHLORIDE 114 MMOL/L (98-107); POTASSIUM 3.6 MMOL/L (3.6-5.0); SODIUM 147 MMOL/L (135-145)
[2021-02-02 04:44] LABS: CALCIUM 7.7 MG/DL (8.5-10.1)
[2021-02-02 04:45] LABS: GLUCOSE 154 MG/DL (70-105); TRIGLYCERIDES 202 MG/DL (<150)
[2021-02-02 04:46] LABS: CARBON DIOXIDE 18 MMOL/L (21-32)
[2021-02-02 04:48] LABS: GFR ESTIMATED > 60; PHOSPHORUS 2.5 MG/DL (2.3-4.7)
[2021-02-02 04:49] LABS: BUN/CREATININE RATIO 19
[2021-02-02 04:50] LABS: MAGNESIUM 2.3 MG/DL (1.6-2.4)
[2021-02-02] MEDS: MAGNESIUM 1 GM/100 ML IVPB 100 ML IV SCH (04:53)
[2021-02-02] MEDS: POTASSIUM CL 10MEQ/50ML IVPB 50 ML IV SCH ×3 (04:53→05:38)
[2021-02-02] MEDS: inSUlin ASPART (NovoLOG) 1 UNIT/0.01 ML (CHARGE PER UNIT) SC SCH ×4 (04:54→23:20)
[2021-02-02] MEDS: KCL 20 MEQ TAB (K-DUR) PO SCH (04:54)
[2021-02-02] MEDS ORDERED: fentaNYL DRIP PRE-MIX 250 ML IV ONE ×3 (06:27→16:56)
[2021-02-02] MEDS: fentaNYL DRIP PRE-MIX 250 ML IV SCH ×3 (06:32→19:44)
--- NOTE | 2021-02-02 06:56 | Diagnostic Imaging Report ---
EXAMINATION: Chest 1 view HISTORY: COVID positive, intubation COMPARISON: 02/01/2021 FINDINGS: Heart size and pulmonary vasculature are normal. There is decreasing lung volumes bilaterally. Increasing patchy interstitial and airspace opacities throughout both lungs. No significant pleural effusion or pneumothorax. Endotracheal tube is unchanged. The osseous structures are intact. IMPRESSION: 1. Decreasing lung volumes with increasing opacities throughout both lungs concerning for worsening pneumonia or increasing superimposed atelectasis. Report was faxed to [facility] Infection Control by tin at 6:55AM. Dictated by: Dictated on workstation # [id number]
--- NOTE | 2021-02-02 06:59 | Occ Therapy Progress Note ---
Therapy Progress Note Pt is currently intubated. OT will continue to monitor pt status and initiate treatment when pt is medically stable and able to actively participate with skilled therapy. MAMADOU HIGHTOWER Feb 02, 2021 06:59
[2021-02-02] MEDS: PANTOPRAZOLE 40 MG (PROTONIX) VIAL IV SCH (08:05)
[2021-02-02] MEDS: SENNA W/DOCUSATE (SENOKOT S) TABLET PO SCH ×2 (08:05→20:57)
[2021-02-02] MEDS: ENOXAPARIN 40 MG/0.4 ML (LOVENOX) SYR SC SCH ×2 (08:05→20:57)
--- NOTE | 2021-02-02 08:18 | Physical Therapy Progress Note ---
Therapy Progress Note Patient intubated and sedated this a.m. PT will continue to monitor patient status and initiate treatment when patient is able to actively participate with skilled therapy. BHARTI BORREGO PT Feb 02, 2021 08:18
[2021-02-02] MEDS: PROPOFOL DRIP (ICU) 100 ML IV SCH ×4 (09:40→23:20)
[2021-02-02] MEDS: RT--FLUTICASONE/SALMETEROL 232-14 (AIRDUO RespiCLICK) IH SCH ×2 (10:53→18:29)
--- NOTE | 2021-02-02 11:21 | Progress Note ---
Subjective Subjective/Events-last exam Febrile overnight, diaphoretic this morning. Focused Exam Lactate Level 01/31/21 04:44: Lactic Acid Level 3.12*H 01/31/21 06:08: Lactic Acid Level 1.59 Objective Exam Last Set of Vital Signs Vital Signs Date Time Temp Pulse Resp B/P (MAP) Pulse Ox O2 Delivery O2 Flow Rate FiO2 02/02/21 11:00 37.6 85 32 166/69 (101) 92 Mechanical Ventilator 45.00 02/02/21 10:54 45 Capillary Refill : Less Than 3 Seconds I&O Intake and Output 02/02/21 00:00 Intake Total 2800 ml Output Total 1875 ml Balance 925 ml Intake Oral 0 ml IV Total 2000 ml Tube Feeding 380 ml Other 420 ml Output Urine Total 1875 ml General: Other (sedated, intubated, diaphoretic) Lungs: Other (decreased air movement) Heart: Regular Rate Abdomen: Normal Bowel Sounds, Soft Extremities: Other (bounding peripheral pulses) Results/Procedures Lab Laboratory Tests 02/01/21 11:45: Glucometer 245H 02/01/21 17:20: Glucometer 216H 02/01/21 23:44: Glucometer 160H 02/02/21 03:55: White Blood Count 12.4H, Red Blood Count 4.36, Hemoglobin 12.4L, Hematocrit 37L, Mean Corpuscular Volume 84, Mean Corpuscular Hemoglobin 28, Mean Corpuscular Hemoglobin Concent 34, Red Cell Distribution Width 13.0, Platelet Count 512H, Mean Platelet Volume 10.1, Immature Granulocyte % (Auto) 8, Neutrophils (%) (Auto) 72, Lymphocytes (%) (Auto) 12, Monocytes (%) (Auto) 6, Eosinophils (%) (Auto) 1, Basophils (%) (Auto) 1, Neutrophils # (Auto) 9.0H, Lymphocytes # (Auto) 1.5, Monocytes # (Auto) 0.8, Eosinophils # (Auto) 0.2, Basophils # (Auto) 0.1, Immature Granulocyte # (Auto) 1.0H, Blood Gas Puncture Site RG ART, Blood Gas Patient Temperature 38.7, Arterial Blood pH 7.40, Arterial Blood Partial Pressure CO2 37, Arterial Blood Partial Pressure O2 57L, Arterial Blood HCO3 22L , Arterial Blood Total CO2 22.7, Arterial Blood Oxygen Saturation 85L, Arterial Blood Base Excess -2.1, Mitchell Test ARTLINE, Blood Gas Ventilator Setting YES, Blood Gas Inspired Oxygen 40%, Sodium Level 147H, Potassium Level 3.6, Chloride Level 114H, Carbon Dioxide Level 18L, Anion Gap 15H, Blood Urea Nitrogen 21H, Creatinine 1.10, Estimat Glomerular Filtration Rate > 60, BUN/Creatinine Ratio 19, Glucose Level 154H, Calcium Level 7.7L, Phosphorus Level 2.5, Magnesium Level 2.3, Triglycerides Level 202H, Procalcitonin 0.93H Microbiology 01/30/21 Gram Stain - Final, Complete 01/30/21 Sputum Culture - Final, Complete Usual upper respiratory jarad 01/27/21 Blood Culture - Final, Complete No growth Assessment/Plan Assessment/Plan (1) COVID-19 Status: Acute Assessment & Plan: s/p convalescent plasma, receiving dexamethasone. D/C remdesevir due to significant hypoxia/need for bipap. Appreciate Tele ICU recommendations. D dimer minimally elevated. (2) Acute respiratory failure Status: Acute Assessment & Plan: Secondary to COVID19, requiring bipap, appreciate tele ICU assistance. 01/30 continued worsening, required intubation and mechanical ventilation sta rting this am, appreciate Marcia recommendations. 01/31 difficulty managing hypoxia, remains at 100% FiO2, PEEP increased to 14 per [facility] ICU orders, proning improves status but has difficulty tolerating the turn, had hypotension with turning last night. 02/01 improved oxygenation, appreciate EICU management. Qualifiers: Qualified Codes: J96.01 - Acute respiratory failure with hypoxia (3) Diabetes mellitus, type 2 Status: Chronic Assessment & Plan: On levemir 25 units BID inpatient, holding home glipizide, pioglitazone and canagliflozin. Sliding scale insulin. 01/30 glucose all above 200, will increase levemir to 28 units BID. 02/02 glucose back to in general above 200, increase levemir to 30 units BID Qualifiers: Qualified Codes: E11.65 - Type 2 diabetes mellitus with hyperglycemia (4) Hypertension Status: Chronic Assessment & Plan: Hold home lisinopril/HCTZ with low normal BP 01/30 BP increased but not significantly hypertensive, monitor and resume antihypertensive as needed Qualifiers: Qualified Codes: I10 - Essential (primary) hypertension (5) Obesity (BMI 30-39.9) Status: Chronic (6) Hypotension Status: Acute Assessment & Plan: Required norepinephrine overnight, resume as needed. Appreciate EICU recommendations. 02/01 intermittently requiring pressor (7) Bradycardia Status: Acute Assessment & Plan: Precedex held, suspect partially related to COVID, remaining in 50s after holding Precedex. (8) Acute renal insufficiency Status: Acute Assessment & Plan: Started on IVF per EICU. 02/01 trending improved (9) On mechanically assisted ventilation Status: Acute (10) At risk for stress ulcer Status: Acute Assessment & Plan: Pantoprazole (11) Impaired nutrition Status: Acute Assessment & Plan: Tube feeds. (12) Hypernatremia Status: Acute Assessment & Plan: Increase free water flushes to 35 cc with tube feeds. (13) DVT prophylaxis Status: Acute Assessment & Plan: Enoxaparin PRAKASH BURNHAM MD Feb 02, 2021 11:21
--- NOTE | 2021-02-02 11:59 | Tele-ICU Progress Note ---
Subjective Date Seen by a Provider: Feb 02, 2021 Time Seen by a Provider: 11:05 Subjective/Events-last exam chart reviewed, labs, x-ray reviewed and d/w rn. video visit made Review of Systems Pulmonary: Dyspnea, Cough, Other (he is intubated and put on vent, sedated) Sepsis Event Evaluation Height, Weight, BMI Height: 5'11" Weight: 305lbs. oz. 138.981035yf; 39.92 BMI Method:Stated Focused Exam Lactate Level 01/31/21 04:44: Lactic Acid Level 3.12*H 01/31/21 06:08: Lactic Acid Level 1.59 Exam Exam Patient acknowledged, consented, and participated in this virtual visit which was conducted using real time audio/video Vital Signs Date Time Temp Pulse Resp B/P (MAP) Pulse Ox O2 Delivery O2 Flow Rate FiO2 02/02/21 11:00 37.6 85 32 166/69 (101) 92 Mechanical Ventilator 45.00 02/02/21 10:54 84 30 89 45 02/02/21 10:32 78 26 146/61 02/02/21 10:00 37.9 75 27 138/61 (86) 90 Mechanical Ventilator 45.00 02/02/21 09:47 88 Mechanical Ventilator 45.00 02/02/21 09:41 78 146/61 02/02/21 09:40 78 146/61 02/02/21 09:00 38.1 73 157/68 (97) 91 Mechanical Ventilator 40.00 02/02/21 08:24 79 91/50 02/02/21 08:05 92 Mechanical Ventilator 40 02/02/21 08:00 38.2 79 26 92/52 (65) 88 Mechanical Ventilator 40.00 02/02/21 07:00 91 02/02/21 07:00 38.4 87 26 90/46 (61) 87 Mechanical Ventilator 40.00 02/02/21 06:26 92 26 92 40 02/02/21 06:00 38.4 93 26 97/46 (63) 92 Mechanical Ventilator 40.00 02/02/21 05:03 38.6 02/02/21 05:00 38.7 92 26 103/44 (63) 91 Mechanical Ventilator 40.00 02/02/21 04:40 94 26 130/54 02/02/21 04:34 38.7 02/02/21 04:00 91 Mechanical Ventilator 40 02/02/21 04:00 38.7 96 26 112/53 (72) 90 Mechanical Ventilator 40.00 02/02/21 03:53 38.7 Mechanical Ventilator 40.00 02/02/21 03:00 38.4 89 26 123/54 (77) 93 Mechanical Ventilator 40.00 02/02/21 02:25 85 26 95 40 02/02/21 02:00 38.1 82 26 116/62 (80) 95 Mechanical Ventilator 40.00 02/02/21 01:00 80 02/02/21 01:00 38.0 77 26 131/67 (88) 96 Mechanical Ventilator 40.00 02/02/21 00:00 37.8 78 26 110/60 (77) 94 Mechanical Ventilator 40.00 02/01/21 23:40 95 Mechanical Ventilator 40 02/01/21 23:00 37.7 75 26 123/68 (86) 94 Mechanical Ventilator 40.00 02/01/21 22:52 74 26 116/64 02/01/21 22:51 74 116/64 02/01/21 22:51 74 116/64 02/01/21 22:00 37.7 77 26 115/60 (78) 96 Mechanical Ventilator 40.00 02/01/21 21:59 77 26 94 40 02/01/21 21:00 37.4 75 26 121/65 (83) 96 Mechanical Ventilator 40.00 02/01/21 20:00 37.2 67 26 121/60 (80) 93 Mechanical Ventilator 40.00 02/01/21 19:50 95 Mechanical Ventilator 40 02/01/21 19:00 71 02/01/21 19:00 37.3 Mechanical Ventilator 40.00 02/01/21 19:00 37.3 70 26 103/60 (74) 91 Mechanical Ventilator 40.00 02/01/21 18:27 74 26 91 40 02/01/21 18:00 79 26 112/64 (80) 92 Mechanical Ventilator 70.00 02/01/21 17:15 67 27 105/62 02/01/21 17:00 36.6 02/01/21 17:00 66 26 95/56 (69) 94 Mechanical Ventilator 70.00 02/01/21 16:01 Mechanical Ventilator 50 02/01/21 16:00 69 26 94/60 (71) 94 Mechanical Ventilator 70.00 02/01/21 15:00 72 26 98/63 (75) 94 Mechanical Ventilator 50.00 02/01/21 14:39 Mechanical Ventilator 70.00 02/01/21 14:00 77 26 98/53 (68) 90 Mechanical Ventilator 50.00 02/01/21 13:43 63 26 92 50 02/01/21 13:00 67 26 131/57 (81) 92 Mechanical Ventilator 50.00 02/01/21 13:00 68 02/01/21 12:33 Mechanical Ventilator 45.00 02/01/21 12:09 63 119/57 02/01/21 12:08 63 104/56 02/01/21 12:00 Mechanical Ventilator 50 02/01/21 12:00 66 53 95/47 (63) 93 Mechanical Ventilator 50.00 I & O 02/02/21 07:00 Intake Total 3230 ml Output Total 1710 ml Balance 1520 ml Height & Weight Height: 5'11" Weight: 305lbs. oz. 138.013440rk; 39.92 BMI Method:Stated General Appearance: No Apparent Distress, Anxious, Chronically ill, Obese, Other (sedated) HEENT: PERRL/EOMI, Normal ENT Inspection, Pharynx Normal, Moist Mucous Membranes Neck: Full Range of Motion, Normal Inspection, Non Tender Respiratory: Chest Non Tender, Lungs Clear, No Accessory Muscle Use, No Respiratory Distress, Decreased Breath Sounds Cardiovascular: Regular Rate, Rhythm, No Edema, No Gallop, No JVD, No Murmur, Normal Peripheral Pulses, Bradycardia Capillary Refill: Less Than 3 Seconds Gastrointestinal: normal bowel sounds, non tender, soft Extremity: Normal Capillary Refill, Normal Inspection, Normal Range of Motion, Non Tender, No Calf Tenderness, No Pedal Edema Neurologic/Psychiatric: Alert, Oriented x3, No Motor/Sensory Deficits, Normal Mood/Affect Skin: Normal Color, Warm/Dry Lymphatic: No Adenopathy Results Lab Laboratory Tests 02/01/21 01:30 02/02/21 03:55 Assessment/Plan Assessment/Plan 1. COVID-19 PNEUMONIA ON TREATMENT WITH DEXA METHASONE 2. ACUTE HYPOXIC RESPIRATORY FAILURE, ON VENT AC 26/520/40/12 PEEP. 3.DIABETES MELLITUS UNCONTROLLED PARTLY DUE TO STEROIDS, ON SS COVERAGE. 4. MORBID OBESITY, NEEDS TO LOOSE WEIGHT ONCE RECOVERED FROM CURRENT ILLNESS. 5. DVT PRPHYLAXIS. ON LOVENOX. 6. NUTRITION. ON INTERMITTENT TF 7.GI PROPHYLAXIS , ON IV PROTONIX PLAN. PRONING TO DAY. CONTINUE CURRENT VENT SETTINGS AND WEAN PEEP IF POSSIBLE CONTINUE SS COVERAGE AND DEXAMETHASONE Critical Care: Critically Ill Patient Time spent with patient (mins): 40 Diagnosis/Problems Diagnosis/Problems (1) Acute respiratory failure Status: Acute Qualifiers: Qualified Codes: J96.01 - Acute respiratory failure with hypoxia (2) COVID-19 Status: Acute (3) Diabetes mellitus, type 2 Status: Chronic Qualifiers: Qualified Codes: E11.65 - Type 2 diabetes mellitus with hyperglycemia (4) On mechanically assisted ventilation Status: Acute (5) Obesity (BMI 30-39.9) Status: Chronic OSMANI DIAZ MD Feb 02, 2021 11:59
[2021-02-02] MEDS: SIMvastatin 10 MG (ZOCOR) TAB PO SCH (20:57)
[2021-02-03] VITALS (30 sets, daily range): BP systolic 93–157; BP diastolic 44–71
[2021-02-03] MEDS ORDERED: fentaNYL DRIP PRE-MIX 250 ML IV ONE ×4 (01:58→20:36)
[2021-02-03] MEDS: RT-ALBUTEROL INHALER HFA (VENTOLIN HFA) 18 GM IH SCH ×6 (02:03→22:18)
[2021-02-03] MEDS: fentaNYL DRIP PRE-MIX 250 ML IV SCH ×4 (02:06→22:59)
[2021-02-03] MEDS: NOREPINEPHRINE 8 MG/250 ML 250 ML IV SCH ×2 (02:07→15:37)
[2021-02-03] MEDS: LORazepam INJECTION FOR DRIP 20 MG in D5W 100 ML IVPB 90 ML IV SCH ×2 (03:45→09:41)
[2021-02-03 04:11] LABS: BASOPHILS # (AUTO) 0.1 10^3/uL (0.0-0.1); BASOPHILS % (AUTO) 0 % (0-10); EOSINOPHILS # (AUTO) 0.2 10^3/uL (0.0-0.3); EOSINOPHILS % (AUTO) 2 % (0-10); HEMATOCRIT 37 % (40-54); HEMOGLOBIN 11.9 g/dL (13.3-17.7); LYMPHOCYTES # (AUTO) 1.4 10^3/uL (1.0-4.0); LYMPHOCYTES % (AUTO) 9 % (12-44); MEAN CORPUSCULAR HEMOGLOBIN 28 pg (25-34); MEAN CORPUSCULAR HGB CONC 33 g/dL (32-36); MEAN CORPUSCULAR VOLUME 85 fL (80-99); MEAN PLATELET VOLUME 9.9 fL (9.0-12.2); MONOCYTES # (AUTO) 0.6 10^3/uL (0.0-1.0); MONOCYTES % (AUTO) 4 % (0-12); NEUTROPHILS # (AUTO) 12.1 10^3/uL (1.8-7.8); NEUTROPHILS % (AUTO) 79 % (42-75); PLATELET COUNT 484 10^3/uL (130-400); WHITE BLOOD COUNT 15.4 10^3/uL (4.3-11.0)
[2021-02-03 04:20] LABS: ABG BASE EXCESS -3.3 MMOL/L (-2.5-2.5); ABG OXYGEN SATURATION 86 % (94-100); ABG PCO2 38 MMHG (35-45); ABG PH 7.37 (7.37-7.43); ABG PO2 60 MMHG (79-93)
[2021-02-03 04:22] LABS: ALLENS TEST ARTLINE; INSPIRED O2 70%; PATIENT TEMP 38.4; VENTILATOR YES
[2021-02-03 04:28] LABS: CHLORIDE 115 MMOL/L (98-107); SODIUM 148 MMOL/L (135-145)
[2021-02-03 04:29] LABS: CALCIUM 7.6 MG/DL (8.5-10.1)
[2021-02-03 04:30] LABS: GLUCOSE 206 MG/DL (70-105)
[2021-02-03 04:31] LABS: CARBON DIOXIDE 19 MMOL/L (21-32)
[2021-02-03 04:33] LABS: PHOSPHORUS 2.7 MG/DL (2.3-4.7)
[2021-02-03 04:34] LABS: CREATININE SERUM 0.96 MG/DL (0.60-1.30); GFR ESTIMATED > 60
[2021-02-03 04:35] LABS: BUN/CREATININE RATIO 18
[2021-02-03 04:36] LABS: MAGNESIUM 2.2 MG/DL (1.6-2.4)
[2021-02-03] MEDS: POTASSIUM CL 10MEQ/50ML IVPB 50 ML IV SCH (04:38)
[2021-02-03] MEDS: MAGNESIUM 1 GM/100 ML IVPB 100 ML IV SCH (04:38)
[2021-02-03] MEDS: KCL 20 MEQ TAB (K-DUR) PO SCH (04:38)
[2021-02-03 04:53] LABS: BAND NEUTROPHILS 1 %; LYMPHOCYTES % (MANUAL) 12 %; METAMYELOCYTES % 2 %; MONOCYTES % (MANUAL) 4 %; NEUTROPHILS % (MANUAL) 81 %; RBC MORPH NORMAL
[2021-02-03] MEDS: inSUlin ASPART (NovoLOG) 1 UNIT/0.01 ML (CHARGE PER UNIT) SC SCH ×4 (05:31→23:03)
[2021-02-03] MEDS: ACETAMINOPHEN 325 MG TABLET PO PRN ×2 (05:37→09:53)
[2021-02-03] MEDS: PROPOFOL DRIP (ICU) 100 ML IV SCH ×5 (06:06→18:18)
--- NOTE | 2021-02-03 07:18 | Physical Therapy Progress Note ---
Therapy Progress Note Patient intubated and sedated this a.m. PT will continue to monitor patient status and initiate treatment when patient is able to actively participate with skilled therapy. BHARTI BORREGO PT Feb 03, 2021 07:18
--- NOTE | 2021-02-03 07:56 | Tele-ICU Progress Note ---
Progress Note video rounds completed 40 y/o morbidly obese male now intubated for Covid PNA Curent vent settings: 26/520/100%/12 Has received remdesivir and on decadron Currently on ativan drip, fentanyl drip, propofol drip for sedation On levophed for BP DVT px with lovenox 40mg BID and PPI for GI prophylaxis PE: currently sedated on vent BP 107/47 O2 sat: 91% Pulse: NSR at 74 Temp 38.3 Labs: wbc 15.4 Hgb: 11.9 Plts: 484 AB.37/38/60/21 Na 148 K: 4 Cl: 115 CO2: 19 BUN: 17 Creat: 0.96 Glu: 206 IMP: severe COVID PNA now ventilated and being proned PLAN: continue full vent support wean as feasable, moderate sedation as feasable Insulin for glucose control, on sliding scale and 20 u Novolog daily Focused Exam Height, Weight, BMI Height: 5'11" Weight: 305lbs. oz. 138.029972vf; 39.92 BMI Method:Stated TWAN WESTBROOK MD Feb 03, 2021 07:56
[2021-02-03] MEDS: ENOXAPARIN 40 MG/0.4 ML (LOVENOX) SYR SC SCH ×2 (08:02→20:43)
[2021-02-03] MEDS: PANTOPRAZOLE 40 MG (PROTONIX) VIAL IV SCH (08:03)
[2021-02-03] MEDS: SENNA W/DOCUSATE (SENOKOT S) TABLET PO SCH ×2 (08:03→20:43)
--- NOTE | 2021-02-03 09:34 | Diagnostic Imaging Report ---
INDICATION: Intubation COMPARISON: 6:25 FINDINGS: ET tube mid thoracic trachea. OG catheter goes into the stomach. There is severe patchy 5 lobed airspace infiltrates, not substantially changed from earlier. No obvious pleural fluid or pneumothorax. IMPRESSION: Severe 5 lobed airspace disease. Support apparatus in stable alignment. No significant change. Dictated by: Dictated on workstation # [id number]
[2021-02-03] MEDS: RT--FLUTICASONE/SALMETEROL 232-14 (AIRDUO RespiCLICK) IH SCH ×2 (10:37→18:21)
[2021-02-03] MEDS: D5 1/2 NS 1000 ML IV SOLUTION 1,000 ML IV SCH ×2 (10:56→22:59)
--- NOTE | 2021-02-03 10:57 | Progress Note - Hospitalist ---
Subjective HPI/CC On Admission Date Seen by Provider: Feb 03, 2021 Time Seen by Provider: 10:51 Chief complaint: Shortness of breath due to Covid History of present illness: This is a 40-year-old white male diabetic noncom pliant with diabetic medication who does not use oxygen or CPAP machine but appears to be high risk for CPAP due to neck circumference and BMI of 40 who presented to the ER with shortness of breath was diagnosed with Covid and he is hypoxic. Patient has progressed throughout the day and at 2100 hrs. the decision was made to transfer up to the ICU for pulmonary critical care management due to maxed on Vapotherm likely will need BiPAP and possible intubation. His blood sugars remain in the 300s with aggressive insulin regimen trying to decrease the level. He does not currently smoke or drink alcohol any works for [employer]. He has not been vaccinated against COVID-19. Subjective/Events-last exam Patient sedated on mechanical ventilation with no improvement in oxygenation status and no change in 5 lobe infiltrate. No new care problems per nursing staff. Objective Exam Vital Signs Vital Signs Date Time Temp Pulse Resp B/P (MAP) Pulse Ox O2 Delivery O2 Flow Rate FiO2 02/03/21 10:23 38.1 02/03/21 10:00 70 26 98/59 (72) 91 Mechanical Ventilator 100.00 02/03/21 08:00 100 Capillary Refill : Less Than 3 Seconds General Appearance: No Apparent Distress, Chronically ill, Obese Respiratory: No Accessory Muscle Use, No Respiratory Distress, Other Cardiovascular: Regular Rate, Rhythm, No Murmur Gastrointestinal: Other (Scattered rhonchi with coarse breath sounds throughout abdomen is not distended nor is it firm bowel sounds are not noted. There is no reaction to palpation of the abdomen and no mass appreciated.) Extremity: Other (2+ edema upper extremities 1+ lower no purpura or rash.) Results/Procedures Lab Laboratory Tests 02/03/21 04:00 Patient resulted labs reviewed. Assessment/Plan Assessment and Plan Assess & Plan/Chief Complaint (1) COVID-19 Status: Acute Assessment & Plan: s/p convalescent plasma, receiving dexamethasone. D/C remdesevir due to significant hypoxia/need for bipap. Appreciate Tele ICU recommendations. D dimer minimally elevated. (2) Acute respiratory failure Status: Acute Assessment & Plan: Secondary to COVID19, requiring bipap, appreciate tele ICU assistance. 01/30 continued worsening, required intubation and mechanical ventilation st arting this am, appreciate Marcia recommendations. 01/31 difficulty managing hypoxia, remains at 100% FiO2, PEEP increased to 14 per [facility] ICU orders, proning improves status but has difficulty tolerating the turn, had hypotension with turning last night. 02/01 improved oxygenation, appreciate EICU management. 02/03 no improvement in respiratory status or chest x-ray requiring 100% FiO2 and 12 of PEEP O2 saturations 89 to 90% predominantly. No evidence for purulence in suctioned secretions per staff. White count elevation likely secondary to Decadron continue to monitor. Prognosis remains extremely poor. Qualifiers: Qualified Codes: J96.01 - Acute respiratory failure with hypoxia (3) Diabetes mellitus, type 2 Status: Chronic Assessment & Plan: On levemir 25 units BID inpatient, holding home glipizide, pioglitazone and canagliflozin. Sliding scale insulin. 01/30 glucose all above 200, will increase levemir to 28 units BID. 02/02 glucose back to in general above 200, increase levemir to 30 units BID Qualifiers: Qualified Codes: E11.65 - Type 2 diabetes mellitus with hyperglycemia (4) Hypertension Status: Chronic Assessment & Plan: Hold home lisinopril/HCTZ with low normal BP 01/30 BP increased but not significantly hypertensive, monitor and resume antihypertensive as needed Qualifiers: Qualified Codes: I10 - Essential (primary) hypertension (5) Obesity (BMI 30-39.9) Status: Chronic (6) Hypotension Status: Acute Assessment & Plan: Required norepinephrine overnight, resume as needed. Appreciate EICU recommendations. 02/01 intermittently requiring pressor (7) Bradycardia Status: Acute Assessment & Plan: Precedex held, suspect partially related to COVID, remaining in 50s after holding Precedex. (8) Acute renal insufficiency Status: Acute Assessment & Plan: Started on IVF per EICU. 02/01 trending improved (9) On mechanically assisted ventilation Status: Acute (10) At risk for stress ulcer Status: Acute Assessment & Plan: Pantoprazole (11) Impaired nutrition Status: Acute Assessment & Plan: Tube feeds. (12) Hypernatremia Status: Acute Assessment & Plan: Increase free water flushes to 35 cc with tube feeds. (13) DVT prophylaxis Status: Acute Assessment & Plan: Enoxaparin Critical Care Critically Ill Patient MARIANA GRIER MD Feb 03, 2021 10:57
[2021-02-03] MEDS: SIMvastatin 10 MG (ZOCOR) TAB PO SCH (20:43)
[2021-02-04] VITALS (30 sets, daily range): BP systolic 97–150; BP diastolic 45–70
[2021-02-04] MEDS: PROPOFOL DRIP (ICU) 100 ML IV SCH ×9 (00:07→23:01)
[2021-02-04] MEDS: RT-ALBUTEROL INHALER HFA (VENTOLIN HFA) 18 GM IH SCH ×6 (02:16→21:40)
[2021-02-04] MEDS: IBUPROFEN 600 MG (MOTRIN) TAB PO PRN ×2 (02:59→20:35)
[2021-02-04 03:01] LABS: BASOPHILS # (AUTO) 0.1 10^3/uL (0.0-0.1); BASOPHILS % (AUTO) 0 % (0-10); EOSINOPHILS # (AUTO) 0.2 10^3/uL (0.0-0.3); EOSINOPHILS % (AUTO) 2 % (0-10); HEMATOCRIT 36 % (40-54); HEMOGLOBIN 11.7 g/dL (13.3-17.7); LYMPHOCYTES # (AUTO) 1.3 10^3/uL (1.0-4.0); LYMPHOCYTES % (AUTO) 8 % (12-44); MEAN CORPUSCULAR HEMOGLOBIN 28 pg (25-34); MEAN CORPUSCULAR HGB CONC 33 g/dL (32-36); MEAN CORPUSCULAR VOLUME 86 fL (80-99); MEAN PLATELET VOLUME 9.9 fL (9.0-12.2); MONOCYTES # (AUTO) 0.5 10^3/uL (0.0-1.0); MONOCYTES % (AUTO) 3 % (0-12); NEUTROPHILS # (AUTO) 12.2 10^3/uL (1.8-7.8); NEUTROPHILS % (AUTO) 77 % (42-75); PLATELET COUNT 501 10^3/uL (130-400); WHITE BLOOD COUNT 15.8 10^3/uL (4.3-11.0)
[2021-02-04] MEDS: NOREPINEPHRINE 8 MG/250 ML 250 ML IV SCH ×2 (03:04→15:48)
[2021-02-04 03:05] LABS: ABG BASE EXCESS -0.9 MMOL/L (-2.5-2.5); ABG OXYGEN SATURATION 86 % (94-100); ABG PCO2 35 MMHG (35-45); ABG PH 7.43 (7.37-7.43); ABG PO2 56 MMHG (79-93); ABG TCO2 23.6 MMOL/L (21.0-31.0); ALLENS TEST YES-POS; INSPIRED O2 90%; PATIENT TEMP 38.5; VENTILATOR YES
[2021-02-04 03:15] LABS: CHLORIDE 113 MMOL/L (98-107); POTASSIUM 4.2 MMOL/L (3.6-5.0); SODIUM 144 MMOL/L (135-145)
[2021-02-04 03:16] LABS: CALCIUM 7.8 MG/DL (8.5-10.1); GLUCOSE 266 MG/DL (70-105)
[2021-02-04 03:17] LABS: TRIGLYCERIDES 286 MG/DL (<150)
[2021-02-04 03:18] LABS: CARBON DIOXIDE 20 MMOL/L (21-32)
[2021-02-04 03:20] LABS: CREATININE SERUM 0.89 MG/DL (0.60-1.30); GFR ESTIMATED > 60; PHOSPHORUS 2.2 MG/DL (2.3-4.7)
[2021-02-04 03:21] LABS: BUN/CREATININE RATIO 18
[2021-02-04] MEDS: ACETAMINOPHEN 325 MG TABLET PO PRN ×3 (03:21→21:24)
[2021-02-04] MEDS: LORazepam INJECTION FOR DRIP 20 MG in D5W 100 ML IVPB 90 ML IV SCH (03:22)
[2021-02-04 03:23] LABS: MAGNESIUM 2.1 MG/DL (1.6-2.4)
[2021-02-04] MEDS: KCL 20 MEQ TAB (K-DUR) PO SCH (03:29)
[2021-02-04] MEDS: MAGNESIUM 1 GM/100 ML IVPB 100 ML IV SCH (03:29)
[2021-02-04] MEDS: POTASSIUM CL 10MEQ/50ML IVPB 50 ML IV SCH (03:29)
[2021-02-04] MEDS ORDERED: fentaNYL DRIP PRE-MIX 250 ML IV ONE ×4 (05:13→19:37)
[2021-02-04] MEDS: inSUlin ASPART (NovoLOG) 1 UNIT/0.01 ML (CHARGE PER UNIT) SC SCH ×4 (05:19→23:03)
[2021-02-04] MEDS: fentaNYL DRIP PRE-MIX 250 ML IV SCH ×5 (05:20→21:24)
[2021-02-04] MEDS: RT--FLUTICASONE/SALMETEROL 232-14 (AIRDUO RespiCLICK) IH SCH ×2 (06:57→18:26)
--- NOTE | 2021-02-04 07:24 | Pulmonary Progress Note ---
Subjective Date Seen by a Provider: Feb 04, 2021 Time Seen by a Provider: 07:22 Subjective/Events-last exam Pt desaturating. Camered into room and D/W RN Ev. Pt proned and PEEP increased to 18. Review of Systems See freetext note Sepsis Event Evaluation Sepsis Stage: Ruled Out Possible Source: Other Height, Weight, BMI Height: 5'11" Weight: 305lbs. oz. 138.023938yr; 39.92 BMI Method:Stated Bedside Monitoring CVP Measures: 8-12 ScvO2 measures: Greater than 70% Bedside Ultrasound Performed: No Passive Leg Raise/Fluid Bolus: Fluid Responsive Focused Exam Sepsis Stage: Ruled Out Possible Source: Other Lactate Level 02/03/21 16:03: Lactic Acid Level 1.27 Respiratory: Lungs Clear Cardiovascular: Regular Rate, Rhythm Peripheral Pulses: 2+ Dorsalis Pedis (R), 2+ Left Dors-Pedis (L) Skin: normal color Within 3hrs of presentation: Lactate level Exam Exam Patient acknowledged, consented, and participated in this virtual visit which was conducted using real time audio/video Vital Signs Date Time Temp Pulse Resp B/P (MAP) Pulse Ox O2 Delivery O2 Flow Rate FiO2 02/04/21 06:00 38.2 70 30 115/57 (76) 88 Mechanical Ventilator 100.00 02/04/21 05:25 75 115/54 02/04/21 05:24 75 115/54 02/04/21 05:00 38.3 82 30 97/45 (62) 84 Mechanical Ventilator 100.00 02/04/21 04:19 38.9 02/04/21 04:00 39.1 89 32 108/48 (68) 100 Mechanical Ventilator 100.00 02/04/21 03:22 96 34 166/65 02/04/21 03:21 38.9 02/04/21 03:11 Mechanical Ventilator 100.00 02/04/21 03:05 95 Mechanical Ventilator 90 02/04/21 03:00 38.6 93 35 144/63 (90) 94 Mechanical Ventilator 90.00 02/04/21 02:59 38.6 02/04/21 02:57 38.6 02/04/21 02:08 81 29 96 90 02/04/21 02:00 37.6 80 29 122/68 (86) 96 Mechanical Ventilator 90.00 02/04/21 01:00 37.4 79 30 134/70 (91) 95 Mechanical Ventilator 90.00 02/04/21 01:00 79 02/04/21 00:08 65 109/58 02/04/21 00:07 65 109/58 02/04/21 00:00 37.2 64 26 103/59 (74) 93 Mechanical Ventilator 90.00 02/03/21 23:00 92 Mechanical Ventilator 90 02/03/21 23:00 37.2 64 27 100/57 (71) 92 Mechanical Ventilator 90.00 02/03/21 22:18 63 26 93 90 02/03/21 22:00 37.2 61 26 119/58 (78) 93 Mechanical Ventilator 90.00 02/03/21 21:00 37.1 63 26 107/57 (74) 93 Mechanical Ventilator 90.00 02/03/21 20:00 37.2 61 26 123/56 (78) 92 Mechanical Ventilator 90.00 02/03/21 19:30 93 Mechanical Ventilator 90 02/03/21 19:00 37.2 62 26 122/58 (79) 93 Mechanical Ventilator 90.00 02/03/21 19:00 62 02/03/21 18:22 60 26 93 90 02/03/21 18:18 61 136/63 02/03/21 18:17 61 136/63 02/03/21 18:00 37.3 60 26 126/58 (80) 92 Mechanical Ventilator 100.00 02/03/21 17:00 37.3 60 26 107/57 (74) 92 Mechanical Ventilator 100.00 02/03/21 16:00 93 Mechanical Ventilator 90 02/03/21 16:00 37.3 61 26 125/59 (81) 93 Mechanical Ventilator 100.00 02/03/21 15:00 37.4 62 26 113/59 (77) 92 Mechanical Ventilator 100.00 02/03/21 14:23 63 26 93 100 02/03/21 14:00 37.4 69 26 96/59 (71) 92 Mechanical Ventilator 100.00 02/03/21 13:00 37.5 84 31 120/71 (87) 93 Mechanical Ventilator 100.00 02/03/21 12:50 64 02/03/21 12:40 75 137/69 02/03/21 12:39 75 137/69 02/03/21 12:38 75 137/69 02/03/21 12:00 37.4 63 29 129/60 (83) 89 Mechanical Ventilator 100.00 02/03/21 11:15 88 Mechanical Ventilator 100 02/03/21 11:09 68 83/53 02/03/21 11:05 68 117/58 02/03/21 11:00 37.7 68 31 129/61 (83) 89 Mechanical Ventilator 100.00 02/03/21 10:38 70 31 85 100 02/03/21 10:23 38.1 02/03/21 10:00 38.3 70 26 98/59 (72) 91 Mechanical Ventilator 100.00 02/03/21 09:53 38.3 02/03/21 09:41 70 27 103/58 02/03/21 09:00 38.3 70 28 107/58 (74) 91 Mechanical Ventilator 100.00 02/03/21 08:43 73 153/69 02/03/21 08:30 74 83/47 02/03/21 08:25 73 78/42 02/03/21 08:00 38.3 74 28 108/45 (66) 91 Mechanical Ventilator 100.00 02/03/21 08:00 88 Mechanical Ventilator 100 I & O 02/04/21 07:00 Intake Total 4720 ml Output Total 1675 ml Balance 3045 ml Height & Weight Height: 5'11" Weight: 305lbs. oz. 138.635599tz; 39.92 BMI Method:Stated General Appearance: No Apparent Distress, Chronically ill, Obese HEENT: PERRL/EOMI, Normal ENT Inspection, Pharynx Normal, Moist Mucous Membranes Neck: Full Range of Motion, Normal Inspection, Non Tender Respiratory: No Accessory Muscle Use, No Respiratory Distress, Other Cardiovascular: Regular Rate, Rhythm, No Murmur Capillary Refill: Less Than 3 Seconds Peripheral Pulses: 2+ Dorsalis Pedis (R), 2+ Left Dors-Pedis (L) Gastrointestinal: normal bowel sounds, non tender, soft Extremity: Other (2+ edema upper extremities 1+ lower no purpura or rash.) Neurologic/Psychiatric: Alert, Oriented x3, No Motor/Sensory Deficits, Normal Mood/Affect Skin: Normal Color, Warm/Dry Lymphatic: No Adenopathy Results Lab Laboratory Tests 02/03/21 04:00 02/04/21 02:50 Assessment/Plan Assessment/Plan See freetext note Time spent with patient (mins): 15 Advance Care discuss with: patient Time spent on discussion(mins): 5 COBY COLON MD Feb 04, 2021 07:24
--- NOTE | 2021-02-04 08:18 | Diagnostic Imaging Report ---
EXAMINATION: Chest radiograph, portable AP view. DATE: 02/04/2021 4:00 AM INDICATION: 40-year-old male, intubation. COMPARISON: February 03, 2021. FINDINGS: The endotracheal tube is approximately 5.3 cm above the debbie. The nasogastric tube is not well seen below the level of the midesophagus. There are technical limitations of the exam relating to patient body habitus and difficulties with exposure. There is multifocal bilateral lung consolidation which is essentially unchanged. IMPRESSION: 1. Unchanged multifocal bilateral lung consolidation. 2. The tip of the nasogastric tube is not well seen. Dictated by: Dictated on workstation # [id number]
[2021-02-04] MEDS: ENOXAPARIN 40 MG/0.4 ML (LOVENOX) SYR SC SCH ×2 (08:41→19:26)
[2021-02-04] MEDS: PANTOPRAZOLE 40 MG (PROTONIX) VIAL IV SCH (08:41)
[2021-02-04] MEDS: SENNA W/DOCUSATE (SENOKOT S) TABLET PO SCH ×2 (08:41→19:26)
[2021-02-04 09:06] LABS: ABG BASE EXCESS -2.2 MMOL/L (-2.5-2.5); ABG OXYGEN SATURATION 95 % (94-100); ABG PCO2 39 MMHG (35-45); ABG PH 7.37 (7.37-7.43); ABG PO2 78 MMHG (79-93); ABG TCO2 23.3 MMOL/L (21.0-31.0)
[2021-02-04 09:07] LABS: ALLENS TEST ART LINE; INSPIRED O2 100%; PATIENT TEMP 37.8; VENTILATOR YES
--- NOTE | 2021-02-04 09:15 | Pulmonary Progress Note ---
Subjective Date Seen by a Provider: Feb 04, 2021 Time Seen by a Provider: 09:00 Subjective/Events-last exam Rounded virtually with LESLIE Carreno. Patient less stable overnight. VSS. Most recent ABG on 18 is 7.37/39/78. Today's plan is to monitor in ICU, continue present management, high FiO2 and peep, proning PRN.. Review of Systems See freetext note Sepsis Event Evaluation Sepsis Stage: Ruled Out Possible Source: Other Height, Weight, BMI Height: 5'11" Weight: 305lbs. oz. 138.767748pw; 39.92 BMI Method:Stated Bedside Monitoring CVP Measures: 8-12 ScvO2 measures: Greater than 70% Bedside Ultrasound Performed: No Passive Leg Raise/Fluid Bolus: Fluid Responsive Focused Exam Sepsis Stage: Ruled Out Possible Source: Other Lactate Level 02/03/21 16:03: Lactic Acid Level 1.27 Respiratory: Lungs Clear Cardiovascular: No Edema Capillary Refill: Less Than 3 Seconds Peripheral Pulses: 2+ Dorsalis Pedis (R), 2+ Left Dors-Pedis (L) Skin: normal color Lactic Acid Level See freetext note Within 3hrs of presentation: Lactate level Exam Exam Patient acknowledged, consented, and participated in this virtual visit which was conducted using real time audio/video Vital Signs Date Time Temp Pulse Resp B/P (MAP) Pulse Ox O2 Delivery O2 Flow Rate FiO2 02/04/21 08:40 92 Mechanical Ventilator 100 02/04/21 08:00 37.9 74 20 112/57 (75) 90 Mechanical Ventilator 100.00 02/04/21 07:23 82 30 87 100 02/04/21 07:00 38.0 70 29 133/66 (88) 87 Mechanical Ventilator 100.00 02/04/21 07:00 69 02/04/21 06:57 81 30 82 100 02/04/21 06:00 38.2 70 30 115/57 (76) 88 Mechanical Ventilator 100.00 02/04/21 05:25 75 115/54 02/04/21 05:24 75 115/54 02/04/21 05:00 38.3 82 30 97/45 (62) 84 Mechanical Ventilator 100.00 02/04/21 04:19 38.9 02/04/21 04:00 39.1 89 32 108/48 (68) 100 Mechanical Ventilator 100.00 02/04/21 03:22 96 34 166/65 02/04/21 03:21 38.9 02/04/21 03:11 Mechanical Ventilator 100.00 02/04/21 03:05 95 Mechanical Ventilator 90 02/04/21 03:00 38.6 93 35 144/63 (90) 94 Mechanical Ventilator 90.00 02/04/21 02:59 38.6 02/04/21 02:57 38.6 02/04/21 02:08 81 29 96 90 02/04/21 02:00 37.6 80 29 122/68 (86) 96 Mechanical Ventilator 90.00 02/04/21 01:00 37.4 79 30 134/70 (91) 95 Mechanical Ventilator 90.00 02/04/21 01:00 79 02/04/21 00:08 65 109/58 02/04/21 00:07 65 109/58 02/04/21 00:00 37.2 64 26 103/59 (74) 93 Mechanical Ventilator 90.00 02/03/21 23:00 92 Mechanical Ventilator 90 02/03/21 23:00 37.2 64 27 100/57 (71) 92 Mechanical Ventilator 90.00 02/03/21 22:18 63 26 93 90 02/03/21 22:00 37.2 61 26 119/58 (78) 93 Mechanical Ventilator 90.00 02/03/21 21:00 37.1 63 26 107/57 (74) 93 Mechanical Ventilator 90.00 02/03/21 20:00 37.2 61 26 123/56 (78) 92 Mechanical Ventilator 90.00 02/03/21 19:30 93 Mechanical Ventilator 90 02/03/21 19:00 37.2 62 26 122/58 (79) 93 Mechanical Ventilator 90.00 02/03/21 19:00 62 02/03/21 18:22 60 26 93 90 02/03/21 18:18 61 136/63 02/03/21 18:17 61 136/63 02/03/21 18:00 37.3 60 26 126/58 (80) 92 Mechanical Ventilator 100.00 02/03/21 17:00 37.3 60 26 107/57 (74) 92 Mechanical Ventilator 100.00 02/03/21 16:00 93 Mechanical Ventilator 90 02/03/21 16:00 37.3 61 26 125/59 (81) 93 Mechanical Ventilator 100.00 02/03/21 15:00 37.4 62 26 113/59 (77) 92 Mechanical Ventilator 100.00 02/03/21 14:23 63 26 93 100 02/03/21 14:00 37.4 69 26 96/59 (71) 92 Mechanical Ventilator 100.00 02/03/21 13:00 37.5 84 31 120/71 (87) 93 Mechanical Ventilator 100.00 02/03/21 12:50 64 02/03/21 12:40 75 137/69 02/03/21 12:39 75 137/69 02/03/21 12:38 75 137/69 02/03/21 12:00 37.4 63 29 129/60 (83) 89 Mechanical Ventilator 100.00 02/03/21 11:15 88 Mechanical Ventilator 100 02/03/21 11:09 68 83/53 02/03/21 11:05 68 117/58 02/03/21 11:00 37.7 68 31 129/61 (83) 89 Mechanical Ventilator 100.00 02/03/21 10:38 70 31 85 100 02/03/21 10:23 38.1 02/03/21 10:00 38.3 70 26 98/59 (72) 91 Mechanical Ventilator 100.00 02/03/21 09:53 38.3 02/03/21 09:41 70 27 103/58 I & O 02/04/21 07:00 Intake Total 4720 ml Output Total 1675 ml Balance 3045 ml Height & Weight Height: 5'11" Weight: 305lbs. oz. 138.887224eo; 39.92 BMI Method:Stated General Appearance: No Apparent Distress, Chronically ill, Obese HEENT: PERRL/EOMI, Normal ENT Inspection, Pharynx Normal, Moist Mucous Membranes Neck: Full Range of Motion, Normal Inspection, Non Tender Respiratory: No Accessory Muscle Use, No Respiratory Distress, Other Cardiovascular: Regular Rate, Rhythm, No Murmur Capillary Refill: Less Than 3 Seconds Peripheral Pulses: 2+ Left Dors-Pedis (L), 2+ Radial Pulses (R) Gastrointestinal: normal bowel sounds, non tender, soft Extremity: Other (2+ edema upper extremities 1+ lower no purpura or rash.) Neurologic/Psychiatric: Alert, Oriented x3, No Motor/Sensory Deficits, Normal Mood/Affect Skin: Normal Color, Warm/Dry Lymphatic: No Adenopathy Other comments See freetext note Results Lab Laboratory Tests 02/03/21 04:00 02/04/21 02:50 See freetext note Meds See freetext note Radiology See freetext note Procedures See freetext note Assessment/Plan Assessment/Plan See freetext note Critical Care: Ventilator Management Time spent with patient (mins): 15 Advance Care discuss with: patient Time spent on discussion(mins): 5 Diagnosis/Problems Diagnosis/Problems (1) On mechanically assisted ventilation Status: Acute COBY COLON MD Feb 04, 2021 09:15
[2021-02-04] MEDS ORDERED: VANCOMYCIN INJECTION 0.1 MG in NS (IVPB) 250 ML IV SCH (09:30)
[2021-02-04] MEDS ORDERED: VANCOMYCIN 2000 MG/NS 500 ML IVPB IV NR ×2 (10:00)
[2021-02-04] MEDS: 1/2 NS IV SOLUTION 1,000 ML IV SCH ×2 (10:02→22:37)
--- NOTE | 2021-02-04 12:54 | Progress Note - Hospitalist ---
Subjective HPI/CC On Admission Date Seen by Provider: Feb 04, 2021 Time Seen by Provider: 09:15 Chief complaint: Shortness of breath due to Covid History of present illness: This is a 40-year-old white male diabetic noncom pliant with diabetic medication who does not use oxygen or CPAP machine but appears to be high risk for CPAP due to neck circumference and BMI of 40 who presented to the ER with shortness of breath was diagnosed with Covid and he is hypoxic. Patient has progressed throughout the day and at 2100 hrs. the decision was made to transfer up to the ICU for pulmonary critical care management due to maxed on Vapotherm likely will need BiPAP and possible intubation. His blood sugars remain in the 300s with aggressive insulin regimen trying to decrease the level. 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 He has not been vaccinated against COVID-19. Subjective/Events-last exam Patient sedated on vent requiring prone status and increase in PEEP to 18 due to progressing respiratory failure. Focused Exam Lactate Level 02/03/21 16:03: Lactic Acid Level 1.27 Objective Exam Vital Signs Vital Signs Date Time Temp Pulse Resp B/P (MAP) Pulse Ox O2 Delivery O2 Flow Rate FiO2 02/04/21 12:00 37.4 65 26 148/66 (93) 93 Mechanical Ventilator 100.00 02/04/21 10:21 100 Capillary Refill : Less Than 3 Seconds General Appearance: Obese, Other (Due to sedation on mechanical ventilation does not appear to be in distress.) Respiratory: No Accessory Muscle Use, Other (Scattered rales and rhonchi unchanged from yesterday. No wheezing noted. ) Cardiovascular: Regular Rate, Rhythm, No Murmur, Tachycardia Extremity: Other (1-2+ edema of the lower extremities 2+ of the upper extremities) Results/Procedures Lab Laboratory Tests 02/04/21 02:50 Patient resulted labs reviewed. Assessment/Plan Assessment and Plan Assess & Plan/Chief Complaint (1) COVID-19 Status: Acute Assessment & Plan: s/p convalescent plasma, receiving dexamethasone. D/C remdesevir due to significant hypoxia/need for bipap. Appreciate Tele ICU recommendations. D dimer minimally elevated. (2) Acute respiratory failure Status: Acute Assessment & Plan: Secondary to COVID19, requiring bipap, appreciate tele ICU assistance. 01/30 continued worsening, required intubation and mechanical ventilation starting this am, appreciate [facility] recommendations. 01/31 difficulty managing hypoxia, remains at 100% FiO2, PEEP increased to 14 per [facility] ICU orders, proning improves status but has difficulty tolerating the turn, had hypotension with turning last night. 02/01 improved oxygenation, appreciate EICU management. 02/03 no improvement in respiratory status or chest x-ray requiring 100% FiO2 and 12 of PEEP O2 saturations 89 to 90% predominantly. No evidence for purulence in suctioned secretions per staff. White count elevation likely secondary to Decadron continue to monitor. Prognosis remains extremely poor. 02/04 progressive respiratory failure with O2 saturations supine down to the low 80s on 12 of PEEP and 100% FiO2. With change in prone positioning and PEEP to 18 O2 saturations for an hour in the low 90s to upper 80s all indicative of progressive respiratory failure with extremely poor prognosis. At this point putting the patient through CPR procedure would be the definition of futile and only lead to increase in infection transmission to staff so I have strongly advised against this. Qualifiers: Qualified Codes: J96.01 - Acute respiratory failure with hypoxia (3) Diabetes mellitus, type 2 Status: Chronic Assessment & Plan: On levemir 25 units BID inpatient, holding home glipizide, pioglitazone and canagliflozin. Sliding scale insulin. 01/30 glucose all above 200, will increase levemir to 28 units BID. 02/02 glucose back to in general above 200, increase levemir to 30 units BID Qualifiers: Qualified Codes: E11.65 - Type 2 diabetes mellitus with hyperglycemia (4) Hypertension Status: Chronic Assessment & Plan: Hold home lisinopril/HCTZ with low normal BP 01/30 BP increased but not significantly hypertensive, monitor and resume antihypertensive as needed Qualifiers: Qualified Codes: I10 - Essential (primary) hypertension (5) Obesity (BMI 30-39.9) Status: Chronic (6) Hypotension Status: Acute Assessment & Plan: Required norepinephrine overnight, resume as needed. Appreciate EICU recommendations. 02/01 intermittently requiring pressor (7) Bradycardia Status: Acute Assessment & Plan: Precedex held, suspect partially related to COVID, remaining in 50s after holding Precedex. (8) Acute renal insufficiency Status: Acute Assessment & Plan: Started on IVF per EICU. 02/01 trending improved (9) On mechanically assisted ventilation Status: Acute (10) At risk for stress ulcer Status: Acute Assessment & Plan: Pantoprazole (11) Impaired nutrition Status: Acute Assessment & Plan: Tube feeds. (12) Hypernatremia Status: Acute Assessment & Plan: Increase free water flushes to 35 cc with tube feeds. (13) DVT prophylaxis Status: Acute Assessment & Plan: Enoxaparin Critical Care Critically Ill Patient MARIANA GRIER MD Feb 04, 2021 12:54
[2021-02-04] MEDS: VANCOMYCIN 1 GM/NS 250 ML IVPB IV SCH ×2 (17:22)
[2021-02-04] MEDS: LACRI-LUBE OPTHALMIC OINT 3.5 GM TUBE OU SCH (19:26)
[2021-02-04] MEDS: SIMvastatin 10 MG (ZOCOR) TAB PO SCH (19:26)
[2021-02-05] VITALS (30 sets, daily range): BP systolic 98–149; BP diastolic 42–73
[2021-02-05] MEDS ORDERED: fentaNYL DRIP PRE-MIX 250 ML IV ONE ×6 (00:53→23:18)
[2021-02-05] MEDS: 1/2 NS IV SOLUTION 1,000 ML IV SCH ×2 (01:07→23:39)
[2021-02-05] MEDS: ACETAMINOPHEN 325 MG TABLET PO PRN ×2 (01:07→20:46)
[2021-02-05] MEDS: VANCOMYCIN 1 GM/NS 250 ML IVPB IV SCH ×2 (01:07)
[2021-02-05 01:20] LABS: ABG BASE EXCESS -1.1 MMOL/L (-2.5-2.5); ABG OXYGEN SATURATION 97 % (94-100); ABG PCO2 35 MMHG (35-45); ABG PH 7.42 (7.37-7.43); ABG PO2 88 MMHG (79-93); ABG TCO2 23.5 MMOL/L (21.0-31.0)
[2021-02-05 01:21] LABS: ALLENS TEST ART LINE
[2021-02-05 01:22] LABS: INSPIRED O2 80%; PATIENT TEMP 38.1; VENTILATOR YES
[2021-02-05 01:24] LABS: BASOPHILS # (AUTO) 0.1 10^3/uL (0.0-0.1); BASOPHILS % (AUTO) 0 % (0-10); EOSINOPHILS # (AUTO) 0.3 10^3/uL (0.0-0.3); EOSINOPHILS % (AUTO) 1 % (0-10); HEMATOCRIT 34 % (40-54); HEMOGLOBIN 11.4 g/dL (13.3-17.7); LYMPHOCYTES # (AUTO) 1.6 10^3/uL (1.0-4.0); LYMPHOCYTES % (AUTO) 7 % (12-44); MEAN CORPUSCULAR HEMOGLOBIN 28 pg (25-34); MEAN CORPUSCULAR HGB CONC 33 g/dL (32-36); MEAN CORPUSCULAR VOLUME 85 fL (80-99); MEAN PLATELET VOLUME 9.7 fL (9.0-12.2); MONOCYTES # (AUTO) 0.8 10^3/uL (0.0-1.0); MONOCYTES % (AUTO) 3 % (0-12); NEUTROPHILS # (AUTO) 18.6 10^3/uL (1.8-7.8); NEUTROPHILS % (AUTO) 81 % (42-75); PLATELET COUNT 584 10^3/uL (130-400); WHITE BLOOD COUNT 23.1 10^3/uL (4.3-11.0)
[2021-02-05 01:39] LABS: BUN/CREATININE RATIO 22; CALCIUM 7.7 MG/DL (8.5-10.1); CARBON DIOXIDE 20 MMOL/L (21-32); CHLORIDE 113 MMOL/L (98-107); CREATININE SERUM 0.87 MG/DL (0.60-1.30); GFR ESTIMATED > 60; GLUCOSE 175 MG/DL (70-105); MAGNESIUM 2.1 MG/DL (1.6-2.4); PHOSPHORUS 2.7 MG/DL (2.3-4.7); POTASSIUM 4.1 MMOL/L (3.6-5.0); SODIUM 141 MMOL/L (135-145)
[2021-02-05] MEDS: KCL 20 MEQ TAB (K-DUR) PO SCH (01:42)
[2021-02-05] MEDS: POTASSIUM CL 10MEQ/50ML IVPB 50 ML IV SCH (01:42)
[2021-02-05] MEDS: MAGNESIUM 1 GM/100 ML IVPB 100 ML IV SCH (01:42)
[2021-02-05] MEDS: RT-ALBUTEROL INHALER HFA (VENTOLIN HFA) 18 GM IH SCH ×6 (02:07→22:40)
[2021-02-05] MEDS: fentaNYL DRIP PRE-MIX 250 ML IV SCH ×6 (02:18→23:29)
[2021-02-05] MEDS ORDERED: IBUPROFEN 600 MG (MOTRIN) TAB PO ONE (02:30)
[2021-02-05] MEDS: NOREPINEPHRINE 8 MG/250 ML 250 ML IV SCH ×2 (03:11→05:11)
[2021-02-05] MEDS ORDERED: CISATRACURIUM 2MG/ML (NIMBEX) 10ML VIAL IV ONE (03:15)
[2021-02-05] MEDS ORDERED: ROCURONIUM 10 MG/ML 5 ML SYRINGE IV ONE (03:15)
[2021-02-05] MEDS ORDERED: NOREPINEPHRINE 8 MG/250 ML 250 ML IV ONE (04:14)
[2021-02-05] MEDS: inSUlin ASPART (NovoLOG) 1 UNIT/0.01 ML (CHARGE PER UNIT) SC SCH ×4 (04:38→23:22)
[2021-02-05] MEDS: PROPOFOL DRIP (ICU) 100 ML IV SCH ×7 (05:10→18:41)
--- NOTE | 2021-02-05 06:38 | Progress Note - Hospitalist ---
Subjective HPI/CC On Admission Date Seen by Provider: Feb 05, 2021 Time Seen by Provider: 10:00 Chief complaint: Shortness of breath due to Covid History of present illness: This is a 40-year-old white male diabetic noncom pliant with diabetic medication who does not use oxygen or CPAP machine but appears to be high risk for CPAP due to neck circumference and BMI of 40 who presented to the ER with shortness of breath was diagnosed with Covid and he is hypoxic. Patient has progressed throughout the day and at 2100 hrs. the decision was made to transfer up to the ICU for pulmonary critical care management due to maxed on Vapotherm likely will need BiPAP and possible intubation. His blood sugars remain in the 300s with aggressive insulin regimen trying to decrease the level. 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 He has not been vaccinated against COVID-19. Subjective/Events-last exam Pt still remains on the vent Prone positioning required sedation because of respiratory rate of 60 White count 23,000 Pt not doing well Poor prognosis Focused Exam Lactate Level 02/03/21 16:03: Lactic Acid Level 1.27 Objective Exam Vital Signs Vital Signs Date Time Temp Pulse Resp B/P (MAP) Pulse Ox O2 Delivery O2 Flow Rate FiO2 02/06/21 05:36 80 161/64 02/06/21 05:00 37.7 27 92 Mechanical Ventilator 100.00 02/06/21 04:00 100 Capillary Refill : Less Than 3 Seconds General Appearance: No Apparent Distress, WD/WN, Chronically ill, Obese, Other (Sedated on vent) Respiratory: Lungs Clear, Decreased Breath Sounds Cardiovascular: Regular Rate, Rhythm Results/Procedures Lab Laboratory Tests 02/06/21 02:50 Patient resulted labs reviewed. Assessment/Plan Assessment and Plan Assess & Plan/Chief Complaint Assessment: Ventilator dependent respiratory failure Acute hypoxic respiratory failure from COVID-19 pneumonia requiring intubation since failed Vapotherm and BiPAP Diabetes [id number] Obesity Suspicion of obstructive sleep apnea Plan: Supportive care Prognosis guarded Critical Care Critically Ill Patient Diagnosis/Problems Diagnosis/Problems (1) COVID-19 Status: Acute (2) Hypoxia Status: Acute REHAN GRANT DO Feb 05, 2021 06:38
--- NOTE | 2021-02-05 06:55 | Occ Therapy Progress Note ---
Therapy Progress Note Pt is currently intubated. OT will continue to monitor pt status and initiate treatment when pt is medically stable and able to actively participate with skilled therapy. MAMADOU HIGHTOWER Feb 05, 2021 06:55
--- NOTE | 2021-02-05 07:59 | Physical Therapy Progress Note ---
Therapy Progress Note Patient intubated and sedated this a.m. PT will continue to monitor patient status and initiate treatment when patient is able to actively participate with skilled therapy. BHARTI BORREGO PT Feb 05, 2021 07:59
--- NOTE | 2021-02-05 08:30 | Diagnostic Imaging Report ---
Indication: Ventilator support. Time of exam: 3:05 AM Correlation is made with prior chest one day earlier. ET tube has tip above the debbie. NG tube passes below the diaphragm. Extensive bilateral pulmonary infiltrates persist but do show some partial clearing with some mild improved aeration of both lungs when compared with yesterday. No effusion or pneumothorax is identified. Impression: Bilateral pulmonary infiltrates showing mild improvement when compared to examination one day earlier. Dictated by: Dictated on workstation # [id number]
[2021-02-05] MEDS: PANTOPRAZOLE 40 MG (PROTONIX) VIAL IV SCH (08:54)
[2021-02-05] MEDS: ENOXAPARIN 40 MG/0.4 ML (LOVENOX) SYR SC SCH ×2 (08:54→20:45)
[2021-02-05] MEDS: SENNA W/DOCUSATE (SENOKOT S) TABLET PO SCH ×2 (08:54→20:45)
[2021-02-05] MEDS: LACRI-LUBE OPTHALMIC OINT 3.5 GM TUBE OU SCH ×2 (08:55→20:45)
[2021-02-05] MEDS ORDERED: TROUGH ORDER-PHARMACY XX NR (09:00)
[2021-02-05] MEDS: VANCOMYCIN INJECTION 1,500 MG in NS IV 500 ML 500 ML IV SCH ×2 (10:21→21:00)
[2021-02-05] MEDS ORDERED: ACETAMINOPHEN 325 MG SUPP (TYLENOL) ONE (13:40)
[2021-02-05] MEDS ORDERED: ACETAMINOPHEN 650 MG SUPP (TYLENOL) ONE (13:45)
[2021-02-05] MEDS ORDERED: ACETAMINOPHEN 650 MG SUPP (TYLENOL) PR PRN (13:45)
[2021-02-05] MEDS: RT--FLUTICASONE/SALMETEROL 232-14 (AIRDUO RespiCLICK) IH SCH ×2 (14:00→18:13)
[2021-02-05] MEDS: IBUPROFEN 600 MG (MOTRIN) TAB PO PRN (17:33)
--- NOTE | 2021-02-05 18:19 | Tele-ICU Progress Note ---
Subjective Date Seen by a Provider: Feb 05, 2021 Time Seen by a Provider: 18:19 Sepsis Event Evaluation Height, Weight, BMI Height: 5'11" Weight: 305lbs. oz. 138.583135at; 39.92 BMI Method:Stated Focused Exam Lactate Level 02/03/21 16:03: Lactic Acid Level 1.27 Exam Exam Patient acknowledged, consented, and participated in this virtual visit which was conducted using real time audio/video Vital Signs Date Time Temp Pulse Resp B/P (MAP) Pulse Ox O2 Delivery O2 Flow Rate FiO2 02/05/21 18:13 77 28 88 100 02/05/21 18:00 39.7 97 35 100/49 (66) 87 Mechanical Ventilator 100.00 02/05/21 17:00 39.5 88 30 149/60 (89) 86 Mechanical Ventilator 100.00 02/05/21 16:00 38.9 96 37 147/56 (86) 88 Mechanical Ventilator 100.00 02/05/21 15:06 90 Mechanical Ventilator 100 02/05/21 15:00 38.4 73 28 132/69 (90) 85 Mechanical Ventilator 100.00 02/05/21 14:56 127/68 02/05/21 14:01 70 28 91 100 02/05/21 14:00 38.1 70 26 121/72 (88) 91 Mechanical Ventilator 100.00 02/05/21 13:00 37.9 70 26 124/73 (90) 90 Mechanical Ventilator 100.00 02/05/21 13:00 71 02/05/21 12:00 37.7 70 26 134/67 (89) 90 Mechanical Ventilator 100.00 02/05/21 11:20 71 27 82 100 02/05/21 11:06 89 Mechanical Ventilator 100 02/05/21 11:00 37.6 70 28 130/68 (88) 90 Mechanical Ventilator 100.00 02/05/21 10:22 110/64 02/05/21 10:21 106/64 02/05/21 10:00 37.5 69 28 124/66 (85) 95 Mechanical Ventilator 100.00 02/05/21 09:00 70 31 111/63 (79) 92 Mechanical Ventilator 100.00 02/05/21 08:00 69 27 121/63 (82) 93 Mechanical Ventilator 100.00 02/05/21 08:00 91 Mechanical Ventilator 100 02/05/21 07:00 37.7 71 27 112/62 (79) 92 Mechanical Ventilator 100.00 02/05/21 07:00 72 02/05/21 06:20 72 29 91 100 02/05/21 06:00 38.0 73 29 104/55 (71) 94 Mechanical Ventilator 100.00 02/05/21 05:41 112/52 02/05/21 05:11 117/56 02/05/21 05:10 117/56 02/05/21 05:00 38.1 77 33 114/57 (76) 94 Mechanical Ventilator 100.00 02/05/21 04:26 91/46 02/05/21 04:12 95/44 02/05/21 04:00 38.6 100 108/42 (64) 90 Mechanical Ventilator 100.00 02/05/21 03:21 91 Mechanical Ventilator 100 02/05/21 03:00 38.8 95 143/62 (89) 87 Mechanical Ventilator 100.00 02/05/21 02:27 Mechanical Ventilator 100.00 02/05/21 02:26 38.7 02/05/21 02:07 84 29 91 80 02/05/21 02:00 38.5 77 24 132/55 (80) 91 Mechanical Ventilator 80.00 02/05/21 01:32 38.3 02/05/21 01:19 148/75 02/05/21 01:07 38.1 02/05/21 01:00 69 02/05/21 01:00 38.1 69 22 101/61 (74) 91 Mechanical Ventilator 80.00 02/05/21 00:00 38.1 69 27 100/59 (73) 92 Mechanical Ventilator 80.00 02/04/21 23:04 93 Mechanical Ventilator 80 02/04/21 23:01 103/62 02/04/21 23:00 38.1 65 25 102/63 (76) 91 Mechanical Ventilator 80.00 02/04/21 23:00 103/62 02/04/21 22:30 87/48 02/04/21 22:00 38.1 75 25 102/52 (69) 92 Mechanical Ventilator 80.00 02/04/21 21:43 38.1 02/04/21 21:41 76 28 93 80 02/04/21 21:24 38.1 6/27/21 21:00 38.1 71 26 108/59 (75) 93 Mechanical Ventilator 80.00 02/04/21 20:35 37.9 02/04/21 20:00 37.7 68 26 98/61 (73) 93 Mechanical Ventilator 80.00 02/04/21 19:32 Mechanical Ventilator 80.00 02/04/21 19:32 93 Mechanical Ventilator 80 02/04/21 19:00 75 02/04/21 19:00 37.7 75 24 111/60 (77) 92 Mechanical Ventilator 80.00 02/04/21 18:28 83 28 92 80 I & O 02/05/21 07:00 Intake Total 5260 ml Output Total 1425 ml Balance 3835 ml Height & Weight Height: 5'11" Weight: 305lbs. oz. 138.768971dd; 39.92 BMI Method:Stated General Appearance: Obese, Other (Due to sedation on mechanical ventilation does not appear to be in distress.) HEENT: PERRL/EOMI, Normal ENT Inspection, Pharynx Normal, Moist Mucous Membranes Neck: Full Range of Motion, Normal Inspection, Non Tender Respiratory: No Accessory Muscle Use, Other (Scattered rales and rhonchi unchanged from yesterday. No wheezing noted. ) Cardiovascular: Regular Rate, Rhythm, No Murmur, Tachycardia Capillary Refill: Less Than 3 Seconds Gastrointestinal: normal bowel sounds, non tender, soft Extremity: Other (1-2+ edema of the lower extremities 2+ of the upper extremities) Neurologic/Psychiatric: Alert, Oriented x3, No Motor/Sensory Deficits, Normal Mood/Affect Skin: Normal Color, Warm/Dry Lymphatic: No Adenopathy Results Lab Laboratory Tests 02/04/21 02:50 02/05/21 01:11 Assessment/Plan Assessment/Plan (Tele-ICU Physician , Progress Note ) Available chart/ vitals / labs / Images reviewed Video assessment done using teleICU camera, rest of exam as per RN can tot reach RN for discussion with multiple attempts Events overnight : Did not tolerate un-proning to supine (same as on 0700 02/04, at that time un-proned to supine then reproned due to tachypnia and lowered sats.) Has to stay supine with >36 hrs proned, // iv push paralytic, vent changes. Temp is 103, earlier increased motrin and tylenol dosing and cooling blanket. low grade fever 01/30, and again 02/01- persistent hemodynamically stable, no pressors, I/O = pos 3600 Drips: propofol ativan fentanyl , norepi 0.02 Consultants: CXR r 01/28 eport reviewed.has bilateral opacities 01/30 - increased RLL density - atelectais ? blood cx 01/27 - neg sputum 01/30- usual jarad , 02/03 = staph aureus port 02/03 staph coag neg Urine 02/03 - staph coag neg Hospital course: 01/27=40 y/o with Hx of DM2, possible CONCEPCIÓN, non compliant with meds. Came in for COVID-19 01/29-ICU for increased WOB and worsening hypoxia. Was on high flow @ 40 kpm with FiO2 100%, now back on BiPAP 12/8 FiO2 90%. 01/30- BiPAP 15/8 FiO2 100%. rr 28 tv 800, MV 28L= > intubated 02/01 - shock , started on levo 02/04) Full DNR, maintain current level of care. (02/05) 0300, Did not tolerate un-proning to supine, iv push paralytic, vent changes. Temp is 103 VENT SETTINGS. ac - 1-- % peep 14 , tv 520 rr 26 ABG reviewed SBT - not candidate today vital /Cardiovascular Stability/Sedation Score/FI02/PEEP/ABG/CXR reviewed . A/P Acute reps failure - , hypoxic , Covid PNA - BiPAP 15/8 FiO2 100%. rr 28 tv 800, MV 28L- discussed with patient and RN in room - patient is getting tired with this WOB , looks laboured -01/30 decided to intubate , patient agreed - intubated without complications , cont proning latter today 2pm - 5 am . RLL atelectasis - to follow - on peep 18 with 100% - might need paralisis and diuresis - follow closely COVID19 Remdesivir Decadron PO 6 - to IV 01/30 , increased dose ddimet 0.5 01/27 -> lovenox proph dose DM II - levemir increased ISShold levemir today - follow on NPO Leukocytosis - vanco 02/04 possible CONCEPCIÓN Lines : 01/30 PICC , (Central Line Necessity Reviewed) Lucero: 01/30 O/22 Nutrition: TF whele supine Analgesia: fentanl prn Anxiety/ delirium = propofol , intubated 01/30 = AAO VTE Prophylaxis: Jair 40 q12 Stress Ulcer Prophylaxis: PPI Glycemic Control: + Plans in collaboration with bedside consultants and IM MDs. RN to reach out if any questions or concerns A total of 32 minutes of critical care time was devoted to this patient today, required to treat and/or prevent further deterioration of critical care condition ( as above ) . CLARK YOUNG MD Feb 05, 2021 18:19
[2021-02-05] MEDS: SIMvastatin 10 MG (ZOCOR) TAB PO SCH (20:45)
[2021-02-06] VITALS (29 sets, daily range): BP systolic 85–154; BP diastolic 50–72
[2021-02-06] MEDS: PROPOFOL DRIP (ICU) 100 ML IV SCH ×7 (00:19→20:41)
[2021-02-06] MEDS ORDERED: NOREPINEPHRINE 8 MG/250 ML 250 ML IV ONE (00:22)
[2021-02-06] MEDS: NOREPINEPHRINE 8 MG/250 ML 250 ML IV SCH ×2 (00:28→14:06)
[2021-02-06] MEDS: RT-ALBUTEROL INHALER HFA (VENTOLIN HFA) 18 GM IH SCH ×6 (02:12→21:04)
[2021-02-06] MEDS: IBUPROFEN 600 MG (MOTRIN) TAB PO PRN ×3 (02:35→20:29)
[2021-02-06 03:04] LABS: BASOPHILS # (AUTO) 0.1 10^3/uL (0.0-0.1); BASOPHILS % (AUTO) 0 % (0-10); EOSINOPHILS # (AUTO) 0.3 10^3/uL (0.0-0.3); EOSINOPHILS % (AUTO) 1 % (0-10); HEMATOCRIT 33 % (40-54); LYMPHOCYTES # (AUTO) 1.4 10^3/uL (1.0-4.0); LYMPHOCYTES % (AUTO) 5 % (12-44); MEAN CORPUSCULAR HEMOGLOBIN 28 pg (25-34); MEAN CORPUSCULAR HGB CONC 33 g/dL (32-36); MEAN CORPUSCULAR VOLUME 85 fL (80-99); MEAN PLATELET VOLUME 9.8 fL (9.0-12.2); MONOCYTES # (AUTO) 0.7 10^3/uL (0.0-1.0); MONOCYTES % (AUTO) 3 % (0-12); NEUTROPHILS # (AUTO) 21.9 10^3/uL (1.8-7.8); NEUTROPHILS % (AUTO) 86 % (42-75); PLATELET COUNT 452 10^3/uL (130-400); WHITE BLOOD COUNT 25.6 10^3/uL (4.3-11.0)
[2021-02-06 03:14] LABS: CHLORIDE 111 MMOL/L (98-107); POTASSIUM 3.7 MMOL/L (3.6-5.0); SODIUM 143 MMOL/L (135-145)
[2021-02-06 03:16] LABS: CALCIUM 7.5 MG/DL (8.5-10.1)
[2021-02-06 03:17] LABS: GLUCOSE 132 MG/DL (70-105); TRIGLYCERIDES 222 MG/DL (<150)
[2021-02-06 03:18] LABS: CARBON DIOXIDE 20 MMOL/L (21-32)
[2021-02-06 03:20] LABS: CREATININE SERUM 0.82 MG/DL (0.60-1.30); GFR ESTIMATED > 60; PHOSPHORUS 3.4 MG/DL (2.3-4.7)
[2021-02-06 03:21] LABS: BUN/CREATININE RATIO 18
[2021-02-06 03:22] LABS: MAGNESIUM 1.8 MG/DL (1.6-2.4)
[2021-02-06 03:25] LABS: BAND NEUTROPHILS 2 %; EOSINOPHILS % (MANUAL) 1 %; LYMPHOCYTES % (MANUAL) 2 %; MONOCYTES % (MANUAL) 5 %; NEUTROPHILS % (MANUAL) 90 %; RBC MORPH NORMAL
[2021-02-06 03:47] LABS: ABG BASE EXCESS -2.4 MMOL/L (-2.5-2.5); ABG OXYGEN SATURATION 88 % (94-100); ABG PCO2 43 MMHG (35-45); ABG PH 7.35 (7.37-7.43); ABG PO2 70 MMHG (79-93); ABG TCO2 23.5 MMOL/L (21.0-31.0)
[2021-02-06 03:48] LABS: ALLENS TEST ART LINE; INSPIRED O2 100%; PATIENT TEMP 38.1; VENTILATOR YES
[2021-02-06] MEDS: KCL 20 MEQ TAB (K-DUR) PO SCH (03:53)
[2021-02-06] MEDS: inSUlin ASPART (NovoLOG) 1 UNIT/0.01 ML (CHARGE PER UNIT) SC SCH ×4 (03:53→23:54)
[2021-02-06] MEDS: POTASSIUM CL 10MEQ/50ML IVPB 50 ML IV SCH ×4 (03:53→21:50)
[2021-02-06] MEDS: MAGNESIUM 1 GM/100 ML IVPB 100 ML IV SCH ×3 (03:53→20:40)
[2021-02-06] MEDS ORDERED: fentaNYL DRIP PRE-MIX 250 ML IV ONE ×2 (04:41→09:21)
[2021-02-06] MEDS: fentaNYL DRIP PRE-MIX 250 ML IV SCH ×4 (04:49→20:44)
--- NOTE | 2021-02-06 06:39 | Progress Note - Hospitalist ---
Subjective HPI/CC On Admission Date Seen by Provider: Feb 06, 2021 Time Seen by Provider: 10:00 Chief complaint: Shortness of breath due to Covid History of present illness: This is a 40-year-old white male diabetic noncom pliant with diabetic medication who does not use oxygen or CPAP machine but appears to be high risk for CPAP due to neck circumference and BMI of 40 who presented to the ER with shortness of breath was diagnosed with Covid and he is hypoxic. Patient has progressed throughout the day and at 2100 hrs. the decision was made to transfer up to the ICU for pulmonary critical care management due to maxed on Vapotherm likely will need BiPAP and possible intubation. His blood sugars remain in the 300s with aggressive insulin regimen trying to decrease the level. 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 He has not been vaccinated against COVID-19. Subjective/Events-last exam Pt continues to be complex Cant tolerate prone position due to tachypnea and unstable vital signs when they move him Very poor prognosis Reviewed meds and labs Focused Exam Lactate Level Objective Exam Vital Signs Vital Signs Date Time Temp Pulse Resp B/P (MAP) Pulse Ox O2 Delivery O2 Flow Rate FiO2 02/07/21 05:12 38.3 02/07/21 04:00 92 Mechanical Ventilator 100 02/07/21 03:00 85 26 141/69 (93) 100.00 Capillary Refill : Less Than 3 Seconds General Appearance: No Apparent Distress, WD/WN, Chronically ill, Obese, Other (Sedated and intubated) Respiratory: Lungs Clear, Decreased Breath Sounds Cardiovascular: Regular Rate, Rhythm Results/Procedures Lab Laboratory Tests 02/06/21 18:15 02/07/21 02:25 Patient resulted labs reviewed. Assessment/Plan Assessment and Plan Assess & Plan/Chief Complaint Assessment: Ventilator dependent respiratory failure Acute hypoxic respiratory failure from COVID-19 pneumonia requiring intubation since failed Vapotherm and BiPAP Diabetes [id number] Obesity Suspicion of obstructive sleep apnea Bacteremia with staph replaced PICC line Plan: Supportive care Prognosis guarded 02/06/2021: Complex issues Poor prognosis Appreciate eICU vent management Change out PICC line due to bacteremia and culture tip Critical Care Ventilator Management Diagnosis/Problems Diagnosis/Problems (1) COVID-19 Status: Acute (2) Hypoxia Status: Acute REHAN GRANT DO Feb 06, 2021 06:39
[2021-02-06] MEDS: RT--FLUTICASONE/SALMETEROL 232-14 (AIRDUO RespiCLICK) IH SCH ×2 (06:40→21:06)
--- NOTE | 2021-02-06 06:55 | Occ Therapy Progress Note ---
Therapy Progress Note Pt is currently intubated. OT will continue to monitor pt status and initiate treatment when pt is medically stable and able to actively participate with skilled therapy. MAMADOU HIGHTOWER Feb 06, 2021 06:55
[2021-02-06] MEDS ORDERED: FUROSEMIDE 40 MG/4 ML INJ (LASIX) IVP NR ×2 (07:45→17:30)
--- NOTE | 2021-02-06 07:49 | Physical Therapy Progress Note ---
Therapy Progress Note Patient intubated and sedated this a.m. PT will continue to monitor patient status and initiate treatment when patient is able to actively participate with skilled therapy. BHARTI BORREGO PT Feb 06, 2021 07:49
[2021-02-06] MEDS: PANTOPRAZOLE 40 MG (PROTONIX) VIAL IV SCH (07:52)
[2021-02-06] MEDS: ENOXAPARIN 40 MG/0.4 ML (LOVENOX) SYR SC SCH ×2 (07:52→20:30)
[2021-02-06] MEDS: SENNA W/DOCUSATE (SENOKOT S) TABLET PO SCH ×2 (07:53→20:29)
[2021-02-06] MEDS: LACRI-LUBE OPTHALMIC OINT 3.5 GM TUBE OU SCH ×2 (07:53→19:50)
[2021-02-06] MEDS ORDERED: ROCURONIUM 10 MG/ML 5 ML SYRINGE IV NR ×2 (08:00→18:30)
[2021-02-06] MEDS: LORazepam INJECTION FOR DRIP 20 MG in D5W 100 ML IVPB 90 ML IV SCH ×3 (08:09→22:40)
[2021-02-06] MEDS ORDERED: MEROPENEM 500 MG VIAL (MERREM) IV ONE (08:31)
[2021-02-06] MEDS ORDERED: DEXTROSE 10% IV SOLUTION 1,000 ML IV ONE (08:31)
[2021-02-06] MEDS ORDERED: WATER (STERILE) FOR INJECTION 10 ML ONE (08:31)
[2021-02-06] MEDS: MEROPENEM 500 MG in WATER (STERILE) FOR INJECTION 10 ML IV SCH ×3 (08:37→19:50)
[2021-02-06] MEDS ORDERED: DEXTROSE 50% 50 ML (IMS) SYR ONE (08:37)
[2021-02-06] MEDS ORDERED: D5W 1000 ML IV SOLUTION 1,000 ML ONE (08:39)
[2021-02-06] MEDS: D5W 1000 ML IV SOLUTION 1,000 ML IV SCH (08:40)
[2021-02-06] MEDS ORDERED: TROUGH ORDER-PHARMACY XX NR (09:00)
--- NOTE | 2021-02-06 09:10 | Diagnostic Imaging Report ---
EXAMINATION: CHEST 1 VIEW, AP/PA ONLY. INDICATION: Intubation. COMPARISON: 02/05/2021. FINDINGS: Stable ET and enteric tubes. Stable left IJ central venous catheter. Bilateral multifocal pulmonary consolidations are unchanged. No pleural effusion or pneumothorax. Stable cardiomediastinal silhouette. IMPRESSION: 1. Stable support devices. 2. No change in bilateral multifocal pneumonia. Dictated by: Dictated on workstation # [id number]
[2021-02-06] MEDS: VANCOMYCIN INJECTION 1,500 MG in NS IV 500 ML 500 ML IV SCH (09:55)
--- NOTE | 2021-02-06 10:03 | Tele-ICU Progress Note ---
Subjective Date Seen by a Provider: Feb 06, 2021 Time Seen by a Provider: 10:02 Sepsis Event Evaluation Height, Weight, BMI Height: 5'11" Weight: 305lbs. oz. 138.024455hq; 39.92 BMI Method:Stated Focused Exam Lactate Level 02/03/21 16:03: Lactic Acid Level 1.27 Exam Exam Patient acknowledged, consented, and participated in this virtual visit which was conducted using real time audio/video Vital Signs Date Time Temp Pulse Resp B/P (MAP) Pulse Ox O2 Delivery O2 Flow Rate FiO2 02/06/21 08:09 146/68 02/06/21 08:00 88 Mechanical Ventilator 100 02/06/21 07:00 96 02/06/21 06:46 84 40 87 100 02/06/21 06:00 37.7 87 32 108/51 (70) 87 Mechanical Ventilator 100.00 02/06/21 05:36 80 161/64 02/06/21 05:35 80 164/76 02/06/21 05:00 37.7 68 27 119/65 (83) 92 Mechanical Ventilator 100.00 02/06/21 04:00 90 Mechanical Ventilator 100 02/06/21 04:00 38.1 82 32 96/50 (65) 90 Mechanical Ventilator 100.00 02/06/21 03:00 38.1 75 26 129/70 (89) 89 Mechanical Ventilator 100.00 02/06/21 02:35 38.0 02/06/21 02:12 73 29 90 100 02/06/21 02:00 37.9 72 26 112/70 (84) 90 Mechanical Ventilator 100.00 02/06/21 01:00 37.8 70 26 108/67 (81) 91 Mechanical Ventilator 100.00 02/06/21 01:00 70 02/06/21 00:28 70 104/63 02/06/21 00:19 70 107/64 02/06/21 00:19 70 107/64 02/05/21 23:20 90 Mechanical Ventilator 100 02/05/21 23:20 37.8 Mechanical Ventilator 100.00 02/05/21 23:00 37.8 70 26 108/65 (79) 90 Mechanical Ventilator 100.00 02/05/21 22:41 71 30 90 100 02/05/21 22:00 37.8 74 26 111/62 (78) 92 Mechanical Ventilator 100.00 02/05/21 21:15 38.4 02/05/21 21:00 38.5 85 38 123/62 (82) 89 Mechanical Ventilator 100.00 02/05/21 20:46 38.6 02/05/21 20:00 38.9 90 28 103/51 (68) 87 Mechanical Ventilator 100.00 02/05/21 19:40 88 Mechanical Ventilator 100 02/05/21 19:00 86 02/05/21 19:00 38.7 94 39 144/58 (86) 88 Mechanical Ventilator 100.00 02/05/21 18:41 97/56 02/05/21 18:40 96/49 02/05/21 18:13 77 28 88 100 02/05/21 18:00 39.7 97 35 100/49 (66) 87 Mechanical Ventilator 100.00 02/05/21 17:00 39.5 88 30 149/60 (89) 86 Mechanical Ventilator 100.00 02/05/21 16:00 38.9 96 37 147/56 (86) 88 Mechanical Ventilator 100.00 02/05/21 15:06 90 Mechanical Ventilator 100 02/05/21 15:00 38.4 73 28 132/69 (90) 85 Mechanical Ventilator 100.00 02/05/21 14:56 127/68 02/05/21 14:01 70 28 91 100 02/05/21 14:00 38.1 70 26 121/72 (88) 91 Mechanical Ventilator 100.00 02/05/21 13:00 37.9 70 26 124/73 (90) 90 Mechanical Ventilator 100.00 02/05/21 13:00 71 02/05/21 12:00 37.7 70 26 134/67 (89) 90 Mechanical Ventilator 100.00 02/05/21 11:20 71 27 82 100 02/05/21 11:06 89 Mechanical Ventilator 100 02/05/21 11:00 37.6 70 28 130/68 (88) 90 Mechanical Ventilator 100.00 02/05/21 10:22 110/64 02/05/21 10:21 106/64 I & O 02/06/21 07:00 Intake Total 2100 ml Output Total 1900 ml Balance 200 ml Height & Weight Height: 5'11" Weight: 305lbs. oz. 138.801715ka; 39.92 BMI Method:Stated General Appearance: No Apparent Distress, WD/WN, Chronically ill, Obese, Other (Sedated on vent) HEENT: PERRL/EOMI, Normal ENT Inspection, Pharynx Normal, Moist Mucous Membranes Neck: Full Range of Motion, Normal Inspection, Non Tender Respiratory: Lungs Clear, Decreased Breath Sounds Cardiovascular: Regular Rate, Rhythm Capillary Refill: Less Than 3 Seconds Peripheral Pulses: 2+ Dorsalis Pedis (R), 2+ Left Dors-Pedis (L), 2+ Radial Pulses (R) Gastrointestinal: normal bowel sounds, non tender, soft Extremity: Other (2+ edema upper extremities 1+ lower no purpura or rash.) Neurologic/Psychiatric: Alert, Oriented x3, No Motor/Sensory Deficits, Normal Mood/Affect Skin: Normal Color, Warm/Dry Lymphatic: No Adenopathy Results Lab Laboratory Tests 02/05/21 01:11 02/06/21 02:50 Assessment/Plan Assessment/Plan (Tele-ICU Physician , Progress Note ) Available chart/ vitals / labs / Images reviewed Video assessment done using teleICU camera, rest of exam as per RN can tot reach RN for discussion with multiple attempts Events overnight : this am desats - iv push paralytic, lasix IV given hemodynamically stable, pressors ? I/O = pos 700 Drips: propofol, ativan off, fentanyl , norepi 0.02 Consultants: CXR r 01/28 eport reviewed.has bilateral opacities 01/30 - increased RLL density - atelectais ? blood cx 01/27 - neg sputum 01/30- usual jarad , 02/03 = staph aureus port 02/03 staph coag neg Urine 02/03 - staph coag neg Hospital course: 01/27=40 y/o with Hx of DM2, possible CONCEPCIÓN, non compliant with meds. Came in for COVID-19 01/29-ICU for increased WOB and worsening hypoxia. Was on high flow @ 40 kpm with FiO2 100%, now back on BiPAP 12/8 FiO2 90%. 01/30- BiPAP 15/8 FiO2 100%. rr 28 tv 800, MV 28L= > intubated 02/01 - shock , started on levo 02/04) Full DNR, maintain current level of care. (02/05) 0300, Did not tolerate un-proning to supine, iv push paralytic, vent changes. Temp is 103 02/06 - hold proning , vent changed , push paralytics VENT SETTINGS. ac - 100 % peep 18 , tv 520 rr 26 ABG reviewed SBT - not candidate today vital /Cardiovascular Stability/Sedation Score/FI02/PEEP/ABG/CXR reviewed . A/P Acute reps failure - , hypoxic , Covid PNA - BiPAP 15/8 FiO2 100%. rr 28 tv 800, MV 28L- discussed with patient and RN in room - patient is getting tired with this WOB , looks laboured -01/30 decided to intubate , patient agreed - intubated without complications , cont proning latter today 2pm - 5 am . RLL atelectasis - to follow - on peep 18 with 100% - - - holding prove on now === try paralisis and diuresis today follow closely COVID19 Remdesivir Decadron PO 6 - to IV 01/30 , increased dose ddimet 0.5 01/27 -> lovenox proph dose Shock - on levo o.02 DM II - levemir increased ISShold levemir today - follow on NPO Leukocytosis - vanco 02/04 persistent vfever and ? wbc = add merem line _ staph hominis - might need to replace - will talk to maria isabel [place] - repeat cx now Hypernatremia - resolved , anticipate ?NA with diuresis - will start D5 w possible CONCEPCIÓN Lines : 01/30 PICC , (Central Line Necessity Reviewed) - Lucero: 01/30 O/22 Nutrition: TF while supine Analgesia: fentanyl prn Anxiety/ delirium = propofol , intubated 01/30 = AAO VTE Prophylaxis: Jair 40 q12 Stress Ulcer Prophylaxis: PPI Glycemic Control: + Plans in collaboration with bedside consultants and IM MDs. RN to reach out if any questions or concerns A total of 35 minutes of critical care time was devoted to this patient today, required to treat and/or prevent further deterioration of critical care condition ( as above ) . CLARK YOUNG MD Feb 06, 2021 10:02
[2021-02-06] MEDS: VANCOMYCIN INJECTION 1,250 MG in NS (IVPB) 250 ML IV SCH (18:05)
[2021-02-06] MEDS ORDERED: ROCURONIUM 10 MG/ML 5 ML SYRINGE IV ONE (18:19)
[2021-02-06 18:40] LABS: POTASSIUM 3.1 MMOL/L (3.6-5.0)
[2021-02-06 18:48] LABS: MAGNESIUM 1.4 MG/DL (1.6-2.4)
[2021-02-06] MEDS: SIMvastatin 10 MG (ZOCOR) TAB PO SCH (20:29)
[2021-02-07] VITALS (31 sets, daily range): BP systolic 17–144; BP diastolic 49–75
[2021-02-07] MEDS ORDERED: NOREPINEPHRINE 8 MG/250 ML 250 ML IV ONE (00:07)
[2021-02-07] MEDS: RT-ALBUTEROL INHALER HFA (VENTOLIN HFA) 18 GM IH SCH ×6 (01:55→21:30)
[2021-02-07] MEDS: VANCOMYCIN INJECTION 1,250 MG in NS (IVPB) 250 ML IV SCH ×3 (01:56→18:38)
[2021-02-07] MEDS: NOREPINEPHRINE 8 MG/250 ML 250 ML IV SCH ×2 (01:57→15:27)
[2021-02-07] MEDS: MEROPENEM 500 MG in WATER (STERILE) FOR INJECTION 10 ML IV SCH ×4 (01:57→20:00)
[2021-02-07] MEDS: fentaNYL DRIP PRE-MIX 250 ML IV SCH ×4 (02:34→20:00)
[2021-02-07] MEDS: PROPOFOL DRIP (ICU) 100 ML IV SCH ×4 (02:34→17:46)
[2021-02-07 02:39] LABS: BASOPHILS # (AUTO) 0.2 10^3/uL (0.0-0.1); BASOPHILS % (AUTO) 1 % (0-10); EOSINOPHILS # (AUTO) 0.3 10^3/uL (0.0-0.3); EOSINOPHILS % (AUTO) 1 % (0-10); HEMATOCRIT 34 % (40-54); HEMOGLOBIN 11.4 g/dL (13.3-17.7); LYMPHOCYTES # (AUTO) 1.7 10^3/uL (1.0-4.0); LYMPHOCYTES % (AUTO) 6 % (12-44); MEAN CORPUSCULAR HEMOGLOBIN 28 pg (25-34); MEAN CORPUSCULAR HGB CONC 33 g/dL (32-36); MEAN CORPUSCULAR VOLUME 83 fL (80-99); MEAN PLATELET VOLUME 10.2 fL (9.0-12.2); MONOCYTES # (AUTO) 0.9 10^3/uL (0.0-1.0); MONOCYTES % (AUTO) 3 % (0-12); NEUTROPHILS # (AUTO) 24.8 10^3/uL (1.8-7.8); NEUTROPHILS % (AUTO) 85 % (42-75); PLATELET COUNT 434 10^3/uL (130-400); WHITE BLOOD COUNT 29.3 10^3/uL (4.3-11.0)
[2021-02-07 02:44] LABS: ABG BASE EXCESS -0.9 MMOL/L (-2.5-2.5); ABG OXYGEN SATURATION 91 % (94-100); ABG PCO2 44 MMHG (35-45); ABG PH 7.35 (7.37-7.43); ABG PO2 76 MMHG (79-93)
[2021-02-07 02:48] LABS: CHLORIDE 107 MMOL/L (98-107); POTASSIUM 3.9 MMOL/L (3.6-5.0); SODIUM 141 MMOL/L (135-145)
[2021-02-07 02:49] LABS: CALCIUM 7.5 MG/DL (8.5-10.1); GLUCOSE 248 MG/DL (70-105)
[2021-02-07 02:51] LABS: CARBON DIOXIDE 21 MMOL/L (21-32)
[2021-02-07 02:53] LABS: CREATININE SERUM 1.13 MG/DL (0.60-1.30); GFR ESTIMATED > 60; PHOSPHORUS 3.5 MG/DL (2.3-4.7)
[2021-02-07 02:54] LABS: BUN/CREATININE RATIO 17
[2021-02-07 02:56] LABS: ALLENS TEST ART LINE; INSPIRED O2 100%; MAGNESIUM 2.1 MG/DL (1.6-2.4); PATIENT TEMP 37.9; VENTILATOR YES
[2021-02-07] MEDS: MAGNESIUM 1 GM/100 ML IVPB 100 ML IV SCH (02:58)
[2021-02-07] MEDS: KCL 20 MEQ TAB (K-DUR) PO SCH (02:58)
[2021-02-07] MEDS: POTASSIUM CL 10MEQ/50ML IVPB 50 ML IV SCH (02:58)
[2021-02-07] MEDS: IBUPROFEN 600 MG (MOTRIN) TAB PO PRN (05:12)
[2021-02-07] MEDS: inSUlin ASPART (NovoLOG) 1 UNIT/0.01 ML (CHARGE PER UNIT) SC SCH ×4 (05:22→23:11)
--- NOTE | 2021-02-07 06:35 | Progress Note - Hospitalist ---
Subjective HPI/CC On Admission Date Seen by Provider: Feb 07, 2021 Time Seen by Provider: 09:30 Chief complaint: Shortness of breath due to Covid History of present illness: This is a 40-year-old white male diabetic noncom pliant with diabetic medication who does not use oxygen or CPAP machine but appears to be high risk for CPAP due to neck circumference and BMI of 40 who presented to the ER with shortness of breath was diagnosed with Covid and he is hypoxic. Patient has progressed throughout the day and at 2100 hrs. the decision was made to transfer up to the ICU for pulmonary critical care management due to maxed on Vapotherm likely will need BiPAP and possible intubation. His blood sugars remain in the 300s with aggressive insulin regimen trying to decrease the level. He does not currently smoke or drink alcohol any works for [employer]. He has not been vaccinated against COVID-19. Subjective/Events-last exam Pt has become even more complex WBC 29,000 Fever persists Eraxis placed empirically Vancomycin and Meropenem maintained Prognosis guarded On 100% FiO2 and Peep of 18 Objective Exam Vital Signs Vital Signs Date Time Temp Pulse Resp B/P (MAP) Pulse Ox O2 Delivery O2 Flow Rate FiO2 02/08/21 04:00 37.2 109 26 119/54 (75) 86 Mechanical Ventilator 100.00 02/08/21 03:25 100 Capillary Refill : Less Than 3 Seconds General Appearance: No Apparent Distress, WD/WN, Chronically ill, Obese, Other (Intubated and sedated) Respiratory: No Accessory Muscle Use, No Respiratory Distress, Decreased Breath Sounds Cardiovascular: Regular Rate, Rhythm Results/Procedures Lab Laboratory Tests 02/08/21 02:19 Patient resulted labs reviewed. Assessment/Plan Assessment and Plan Assess & Plan/Chief Complaint Assessment: Ventilator dependent respiratory failure Acute hypoxic respiratory failure from COVID-19 pneumonia requiring intubation since failed Vapotherm and BiPAP Diabetes [id number] Obesity Suspicion of obstructive sleep apnea Bacteremia with staph replaced PICC line Plan: Supportive care Prognosis guarded 02/06/2021: Complex issues Poor prognosis Appreciate eICU vent management Change out PICC line due to bacteremia and culture tip 02/07/2021: Add Eraxis Monitor fever Maintain vancomycin and meropenem Critical Care Ventilator Management Diagnosis/Problems Diagnosis/Problems (1) COVID-19 Status: Acute (2) Hypoxia Status: Acute REHAN GRANT DO Feb 07, 2021 06:35
--- NOTE | 2021-02-07 06:43 | Occ Therapy Progress Note ---
Therapy Progress Note Pt is currently intubated. OT will continue to monitor pt status and initiate treatment when pt is medically stable and able to actively participate with skilled therapy. MAMADOU HIGHTOWER Feb 07, 2021 06:43
--- NOTE | 2021-02-07 08:01 | Physical Therapy Progress Note ---
Therapy Progress Note Patient intubated and sedated this a.m. PT will continue to monitor patient status and initiate treatment when patient is able to actively participate with skilled therapy. BOBBI ROBLES PT Feb 07, 2021 08:01
[2021-02-07] MEDS: D5W 1000 ML IV SOLUTION 1,000 ML IV SCH (08:11)
[2021-02-07] MEDS: ENOXAPARIN 40 MG/0.4 ML (LOVENOX) SYR SC SCH ×2 (08:12→20:01)
[2021-02-07] MEDS: PANTOPRAZOLE 40 MG (PROTONIX) VIAL IV SCH (08:13)
[2021-02-07] MEDS: SENNA W/DOCUSATE (SENOKOT S) TABLET PO SCH ×2 (08:13→20:01)
[2021-02-07] MEDS: LACRI-LUBE OPTHALMIC OINT 3.5 GM TUBE OU SCH ×2 (08:13→20:01)
--- NOTE | 2021-02-07 08:43 | Diagnostic Imaging Report ---
INDICATION: Hypoxia. TIME OF EXAM: 2:23 AM Correlation is made with prior chest from one day earlier. FINDINGS: ET tube has tip above the debbie. NG tube passes below the diaphragm. Right-sided line has tip overlying SVC right atrial junction. Extensive bilateral pulmonary infiltrates persist. There is no effusion or pneumothorax. IMPRESSION: Stable bilateral infiltrates when compared with examination one day earlier. Dictated by: Dictated on workstation # [id number]
[2021-02-07] MEDS: LORazepam INJECTION FOR DRIP 20 MG in D5W 100 ML IVPB 90 ML IV SCH ×3 (08:49→20:57)
--- NOTE | 2021-02-07 10:14 | Tele-ICU Progress Note ---
Subjective Date Seen by a Provider: Feb 07, 2021 Time Seen by a Provider: 10:14 Sepsis Event Evaluation Height, Weight, BMI Height: 5'11" Weight: 305lbs. oz. 138.312489sw; 39.92 BMI Method:Stated Exam Exam Patient acknowledged, consented, and participated in this virtual visit which was conducted using real time audio/video Vital Signs Date Time Temp Pulse Resp B/P (MAP) Pulse Ox O2 Delivery O2 Flow Rate FiO2 02/07/21 10:00 37.8 80 26 133/68 (89) 93 Mechanical Ventilator 100.00 02/07/21 09:00 38.0 80 26 122/67 (85) 91 Mechanical Ventilator 100.00 02/07/21 08:49 78 26 111/66 02/07/21 08:00 38.2 91 29 115/64 (81) 86 Mechanical Ventilator 100.00 02/07/21 07:00 38.1 85 26 120/64 (82) 88 Mechanical Ventilator 100.00 02/07/21 06:47 86 02/07/21 06:38 79 26 89 100 02/07/21 06:00 38.3 89 26 110/58 (75) 89 Mechanical Ventilator 100.00 02/07/21 05:12 38.3 02/07/21 05:00 38.3 79 26 112/59 (76) 89 Mechanical Ventilator 100.00 02/07/21 04:00 38.2 86 26 118/61 (80) 89 Mechanical Ventilator 100.00 02/07/21 04:00 92 Mechanical Ventilator 100 02/07/21 03:00 38.0 85 26 141/69 (93) 92 Mechanical Ventilator 100.00 02/07/21 02:35 87 128/64 02/07/21 02:34 87 128/64 02/07/21 02:00 37.9 80 17 124/58 (80) 91 Mechanical Ventilator 100.00 02/07/21 01:57 82 02/07/21 01:51 72 26 91 100 02/07/21 01:00 37.9 72 26 105/64 (78) 91 Mechanical Ventilator 100.00 02/07/21 01:00 72 02/07/21 00:00 37.8 78 26 94/58 (70) 89 Mechanical Ventilator 100.00 02/06/21 23:45 37.7 Mechanical Ventilator 100.00 02/06/21 23:45 91 Mechanical Ventilator 100 02/06/21 23:00 37.7 80 26 116/62 (80) 91 Mechanical Ventilator 100.00 02/06/21 22:40 75 26 104/57 02/06/21 22:00 37.7 76 26 138/65 (89) 92 Mechanical Ventilator 100.00 02/06/21 21:00 37.7 77 26 99/56 (70) 92 Mechanical Ventilator 100.00 02/06/21 21:00 78 26 92 100 02/06/21 20:41 81 106/59 02/06/21 20:41 81 106/59 02/06/21 20:29 37.6 02/06/21 20:00 37.6 80 26 154/72 (99) 95 Mechanical Ventilator 100.00 02/06/21 20:00 92 Mechanical Ventilator 100 02/06/21 19:00 84 02/06/21 19:00 84 29 102/58 (73) 92 Mechanical Ventilator 100.00 02/06/21 19:00 37.7 Mechanical Ventilator 100.00 02/06/21 18:28 80 26 90 100 02/06/21 18:00 37.2 82 39 126/59 (81) 85 Mechanical Ventilator 100.00 02/06/21 17:00 37.1 74 26 109/58 (75) 93 Mechanical Ventilator 100.00 02/06/21 16:00 91 Mechanical Ventilator 100 02/06/21 16:00 37.0 67 26 108/58 (75) 93 Mechanical Ventilator 100.00 02/06/21 15:25 109/53 02/06/21 15:25 109/53 02/06/21 15:00 37.0 63 26 91/57 (68) 94 Mechanical Ventilator 100.00 02/06/21 14:29 64 26 93 100 02/06/21 14:00 36.9 63 26 94/55 (68) 93 Mechanical Ventilator 100.00 02/06/21 13:00 36.9 62 26 93/55 (68) 93 Mechanical Ventilator 100.00 02/06/21 13:00 62 02/06/21 12:53 37.0 63 26 85/53 (64) 92 Mechanical Ventilator 100.00 02/06/21 12:00 91 Mechanical Ventilator 100 02/06/21 12:00 37.0 63 26 85/53 (64) 92 Mechanical Ventilator 100.00 02/06/21 11:00 36.9 64 26 91/53 (66) 93 Mechanical Ventilator 100.00 02/06/21 10:17 102/70 02/06/21 10:15 102/70 I & O 02/07/21 07:00 Intake Total 2480 ml Output Total 5210 ml Balance -2730 ml Height & Weight Height: 5'11" Weight: 305lbs. oz. 138.804209wa; 39.92 BMI Method:Stated General Appearance: No Apparent Distress, WD/WN, Chronically ill, Obese, Other (Sedated and intubated) HEENT: PERRL/EOMI, Normal ENT Inspection, Pharynx Normal, Moist Mucous Membranes Neck: Full Range of Motion, Normal Inspection, Non Tender Respiratory: Lungs Clear, Decreased Breath Sounds Cardiovascular: Regular Rate, Rhythm Capillary Refill: Less Than 3 Seconds Peripheral Pulses: 2+ Dorsalis Pedis (R), 2+ Left Dors-Pedis (L), 2+ Radial Pulses (R) Gastrointestinal: normal bowel sounds, non tender, soft Extremity: Other Neurologic/Psychiatric: Alert, Oriented x3, No Motor/Sensory Deficits, Normal Mood/Affect Skin: Normal Color, Warm/Dry Lymphatic: No Adenopathy Results Lab Laboratory Tests 02/06/21 02:50 02/06/21 18:15 02/07/21 02:25 Assessment/Plan Assessment/Plan (Tele-ICU Physician , Progress Note ) Available chart/ vitals / labs / Images reviewed Video assessment done using teleICU camera, rest of exam as per RN can tot reach RN for discussion with multiple attempts Events overnight : was not prone hemodynamically stable, pressors + I/O = neg 2200 Drips: [id number] ativan gtt, fentanyl , norepi 0.02 Consultants: CXR r 01/28 eport reviewed.has bilateral opacities 01/30 - increased RLL density - atelectais ? 01/11- = samw blood cx 01/27 - neg sputum 01/30- usual jarad , 02/03 = staph aureus port 02/03 staph coag neg Urine 02/03 - staph coag neg Hospital course: 01/27=40 y/o with Hx of DM2, possible CONCEPCIÓN, non compliant with meds. Came in for COVID-19 01/29-ICU for increased WOB and worsening hypoxia. Was on high flow @ 40 kpm with FiO2 100%, now back on BiPAP 12/8 FiO2 90%. 01/30- BiPAP 15/8 FiO2 100%. rr 28 tv 800, MV 28L= > intubated 02/01 - shock , started on levo 02/04) Full DNR, maintain current level of care. (02/05) 0300, Did not tolerate un-proning to supine, iv push paralytic, vent miah nges. Temp is 103 02/06 - hold proning , vent changed , push paralytics prn 02/07 - copious secretion on succtioning VENT SETTINGS. PC 30 ,100 % peep 18 ,rr 26 MV 20 PAP 52 ABG reviewed SBT - not candidate today vital /Cardiovascular Stability/Sedation Score/FI02/PEEP/ABG/CXR reviewed . A/P Acute reps failure - , hypoxic , Covid PNA - full vent support , PC 30 ,100 % peep 18 ,rr 26 MV 20 PAP 52 - will decrease rr - holding prove on now , no improvement with diuresis - stable CR - will cont diresis ( 20 LB donna gain since admissimn ) === prn paralisis diuresis today follow closely === increase br - dilators for micous plugging - ? mucomist next try to wean off propogol with increased sedation COVID19 Remdesivir Decadron PO 6 - to IV 01/30 , increased dose ddimet 0.5 01/27 -> lovenox proph dose Shock - on levo o.02 DM II - levemir Leukocytosis/ fever - vanco 02/04 persistent fever and ? wbc = add merem 02/06 PICC line left :line _ staph hominis - PICC changed 02/06 check amulase - ? pancreatitis Hypernatremia - resolved , anticipate ?NA with diuresis - will start D5 w possible CONCEPCIÓN Lines : 01/30 PICC left - out 02/06 . RIGHT picc 02/06 , (Central Line Necessity Reviewed) - Lucero: 01/30 O/22 Nutrition: TF while supine Analgesia: fentanyl prn Anxiety/ delirium = propofol , intubated 01/30 = AAO VTE Prophylaxis: Jair 40 q12 Stress Ulcer Prophylaxis: PPI Glycemic Control: + Plans in collaboration with bedside consultants and IM MDs. RN to reach out if any questions or concerns A total of 35 minutes of critical care time was devoted to this patient today, required to treat and/or prevent further deterioration of critical care condition ( as above ) . CLARK YOUNG MD Feb 07, 2021 10:14
[2021-02-07] MEDS ORDERED: ANIDULAFUNGIN INJECTION 200 MG in NS (IVPB) 250 ML IV ONE (13:30)
[2021-02-07] MEDS: IPRATROPIUM INHALER (ATROVENT) 12.9 GM INH SCH ×3 (14:15→18:43)
[2021-02-07] MEDS: ADVAIR HFA 115/21 MCG INHALER 8 GM IH SCH ×2 (14:16→18:44)
[2021-02-07] MEDS ORDERED: TROUGH ORDER-PHARMACY XX NR (17:00)
[2021-02-07] MEDS: FUROSEMIDE 40 MG/4 ML INJ (LASIX) IVP SCH (17:43)
[2021-02-07] MEDS: fentaNYL INJ 100 MCG/2 ML AMP IVP PRN (18:47)
[2021-02-07] MEDS: SIMvastatin 10 MG (ZOCOR) TAB PO SCH (20:01)
[2021-02-07] MEDS ORDERED: RT--FLUTICASONE/SALMETEROL 232-14 (AIRDUO RespiCLICK) IH SCH (21:00)
[2021-02-08] VITALS (29 sets, daily range): BP systolic 88–150; BP diastolic 46–73
[2021-02-08] MEDS: PROPOFOL DRIP (ICU) 100 ML IV SCH ×7 (00:25→16:04)
[2021-02-08] MEDS: IBUPROFEN 600 MG (MOTRIN) TAB PO PRN ×3 (00:52→23:59)
[2021-02-08 00:54] LABS: ABG BASE EXCESS 2.5 MMOL/L (-2.5-2.5); ABG OXYGEN SATURATION 78 % (94-100); ABG PCO2 46 MMHG (35-45); ABG PH 7.39 (7.37-7.43); ABG PO2 54 MMHG (79-93); ABG TCO2 28.1 MMOL/L (21.0-31.0); ALLENS TEST ART LINE
[2021-02-08 00:55] LABS: PATIENT TEMP 38; VENTILATOR YES
[2021-02-08] MEDS: MEROPENEM 500 MG in WATER (STERILE) FOR INJECTION 10 ML IV SCH ×4 (01:37→20:18)
[2021-02-08] MEDS: ACETAMINOPHEN 325 MG TABLET PO PRN ×3 (01:37→18:03)
[2021-02-08] MEDS: VANCOMYCIN INJECTION 1,250 MG in NS (IVPB) 250 ML IV SCH ×3 (01:37→17:49)
[2021-02-08] MEDS: NOREPINEPHRINE 8 MG/250 ML 250 ML IV SCH ×2 (01:37→16:01)
[2021-02-08] MEDS: fentaNYL DRIP PRE-MIX 250 ML IV SCH ×4 (01:51→20:15)
[2021-02-08] MEDS ORDERED: ROCURONIUM 10 MG/ML 5 ML SYRINGE IV ONE ×5 (02:07→03:15)
[2021-02-08] MEDS: RT-ALBUTEROL INHALER HFA (VENTOLIN HFA) 18 GM IH SCH ×6 (02:22→22:08)
[2021-02-08 02:42] LABS: BASOPHILS # (AUTO) 0.2 10^3/uL (0.0-0.1); BASOPHILS % (AUTO) 1 % (0-10); EOSINOPHILS # (AUTO) 0.3 10^3/uL (0.0-0.3); EOSINOPHILS % (AUTO) 1 % (0-10); HEMATOCRIT 35 % (40-54); HEMOGLOBIN 11.6 g/dL (13.3-17.7); LYMPHOCYTES # (AUTO) 2.6 10^3/uL (1.0-4.0); LYMPHOCYTES % (AUTO) 8 % (12-44); MEAN CORPUSCULAR HEMOGLOBIN 28 pg (25-34); MEAN CORPUSCULAR HGB CONC 33 g/dL (32-36); MEAN CORPUSCULAR VOLUME 86 fL (80-99); MEAN PLATELET VOLUME 10.4 fL (9.0-12.2); MONOCYTES # (AUTO) 1.3 10^3/uL (0.0-1.0); MONOCYTES % (AUTO) 4 % (0-12); NEUTROPHILS # (AUTO) 24.4 10^3/uL (1.8-7.8); NEUTROPHILS % (AUTO) 80 % (42-75); PLATELET COUNT 524 10^3/uL (130-400)
[2021-02-08 02:46] LABS: CHLORIDE 106 MMOL/L (98-107); POTASSIUM 3.5 MMOL/L (3.6-5.0); SODIUM 141 MMOL/L (135-145)
[2021-02-08 02:47] LABS: CALCIUM 7.6 MG/DL (8.5-10.1)
[2021-02-08 02:48] LABS: GLUCOSE 252 MG/DL (70-105); TRIGLYCERIDES 328 MG/DL (<150); WHITE BLOOD COUNT 30.6 10^3/uL (4.3-11.0)
[2021-02-08 02:49] LABS: CARBON DIOXIDE 24 MMOL/L (21-32)
[2021-02-08 02:51] LABS: PHOSPHORUS 3.3 MG/DL (2.3-4.7)
[2021-02-08 02:52] LABS: CREATININE SERUM 1.11 MG/DL (0.60-1.30); GFR ESTIMATED > 60
[2021-02-08 02:53] LABS: BUN/CREATININE RATIO 23
[2021-02-08] MEDS: KCL 20 MEQ TAB (K-DUR) PO SCH (03:01)
[2021-02-08] MEDS: MAGNESIUM 1 GM/100 ML IVPB 100 ML IV SCH (03:01)
[2021-02-08] MEDS: POTASSIUM CL 10MEQ/50ML IVPB 50 ML IV SCH ×2 (03:01→03:14)
[2021-02-08] MEDS: CISATRACURIUM INJECTION 100 MG in NS (IVPB) 200 ML IV SCH ×6 (04:23→23:22)
[2021-02-08] MEDS: inSUlin ASPART (NovoLOG) 1 UNIT/0.01 ML (CHARGE PER UNIT) SC SCH ×4 (05:14→23:59)
--- NOTE | 2021-02-08 06:09 | Progress Note - Hospitalist ---
Subjective HPI/CC On Admission Date Seen by Provider: Feb 08, 2021 Time Seen by Provider: 10:00 Chief complaint: Shortness of breath due to Covid History of present illness: This is a 40-year-old white male diabetic noncomp liant with diabetic medication who does not use oxygen or CPAP machine but appears to be high risk for CPAP due to neck circumference and BMI of 40 who presented to the ER with shortness of breath was diagnosed with Covid and he is hypoxic. Patient has progressed throughout the day and at 2100 hrs. the decision was made to transfer up to the ICU for pulmonary critical care management due to maxed on Vapotherm likely will need BiPAP and possible intubation. His blood sugars remain in the 300s with aggressive insulin regimen trying to decrease the level. 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 He has not been vaccinated against COVID-19. Subjective/Events-last exam Pt overall not doing well WC 30,000 EICU has reviewed the chart multiple times and no more can be done for the patient Girlfriend will hopefully visit today and we will need to work on getting him on comfort care and probably pass away shortly after. Objective Exam Vital Signs Vital Signs Date Time Temp Pulse Resp B/P (MAP) Pulse Ox O2 Delivery O2 Flow Rate FiO2 02/09/21 04:53 118 24 105/62 02/09/21 04:00 38.4 88 Mechanical Ventilator 100.00 02/09/21 01:57 100 Capillary Refill : Less Than 3 Seconds General Appearance: No Apparent Distress, WD/WN, Chronically ill, Obese, Other (Sedated on vent) Respiratory: Lungs Clear, Decreased Breath Sounds Cardiovascular: Regular Rate, Rhythm Results/Procedures Lab Laboratory Tests 02/09/21 02:56 Patient resulted labs reviewed. Assessment/Plan Assessment and Plan Assess & Plan/Chief Complaint Assessment: Ventilator dependent respiratory failure Acute hypoxic respiratory failure from COVID-19 pneumonia requiring intubation since failed Vapotherm and BiPAP Diabetes [id number] Obesity Suspicion of obstructive sleep apnea Bacteremia with staph replaced PICC line Plan: Supportive care Prognosis guarded 02/06/2021: Complex issues Poor prognosis Appreciate eICU vent management Change out PICC line due to bacteremia and culture tip 02/07/2021: Add Eraxis Monitor fever Maintain vancomycin and meropenem 02/08/2021: Continue aggressive care Poor prognosis Critical Care Ventilator Management Diagnosis/Problems Diagnosis/Problems (1) COVID-19 Status: Acute (2) Hypoxia Status: Acute REHAN GRANT DO Feb 08, 2021 06:09
[2021-02-08] MEDS: ADVAIR HFA 115/21 MCG INHALER 8 GM IH SCH ×2 (06:47→18:39)
[2021-02-08] MEDS: IPRATROPIUM INHALER (ATROVENT) 12.9 GM INH SCH ×4 (06:47→18:39)
--- NOTE | 2021-02-08 06:52 | Occ Therapy Progress Note ---
Therapy Progress Note Pt is currently intubated. OT will continue to monitor pt status and initiate treatment when pt is medically stable and able to actively participate with skilled therapy. MAMADOU HIGHTOWER Feb 08, 2021 06:52
--- NOTE | 2021-02-08 07:24 | Diagnostic Imaging Report ---
INDICATION: Respiratory distress. Hypoxia. COVID positive Comparison with 02/07/2021. ET tube and NG tube remain present. There continues to be bilateral diffuse alveolar infiltrates with dense consolidation on the left. Heart is upper limits of normal. IMPRESSION: No significant overall change with dense bilateral consolidated infiltrates more severe on the left. Report was faxed to [facility] In[facility] Control by tin at 7:23AM. Dictated by: Dictated on workstation # [id number]
--- NOTE | 2021-02-08 07:55 | Physical Therapy Progress Note ---
Therapy Progress Note Patient now on a paralytic/intubated. PT will continue to monitor patient status. BHARTI BORREGO PT Feb 08, 2021 07:55
[2021-02-08] MEDS: ENOXAPARIN 40 MG/0.4 ML (LOVENOX) SYR SC SCH ×2 (08:10→20:17)
[2021-02-08] MEDS: LACRI-LUBE OPTHALMIC OINT 3.5 GM TUBE OU SCH ×2 (08:10→20:17)
[2021-02-08] MEDS: D5W 1000 ML IV SOLUTION 1,000 ML IV SCH (08:10)
[2021-02-08] MEDS: SENNA W/DOCUSATE (SENOKOT S) TABLET PO SCH ×2 (08:11→20:17)
[2021-02-08] MEDS: PANTOPRAZOLE 40 MG (PROTONIX) VIAL IV SCH (08:11)
[2021-02-08] MEDS: FUROSEMIDE 40 MG/4 ML INJ (LASIX) IVP SCH (08:11)
[2021-02-08] MEDS ORDERED: FUROSEMIDE 40 MG/4 ML INJ (LASIX) IVP SCH (09:00)
[2021-02-08] MEDS: LORazepam INJECTION FOR DRIP 20 MG in D5W 100 ML IVPB 90 ML IV SCH ×3 (09:56→21:03)
--- NOTE | 2021-02-08 10:09 | Tele-ICU Progress Note ---
Subjective Date Seen by a Provider: Feb 08, 2021 Time Seen by a Provider: 10:09 Sepsis Event Evaluation Height, Weight, BMI Height: 5'11" Weight: 305lbs. oz. 138.686374yz; 39.92 BMI Method:Stated Exam Exam Patient acknowledged, consented, and participated in this virtual visit which was conducted using real time audio/video Vital Signs Date Time Temp Pulse Resp B/P (MAP) Pulse Ox O2 Delivery O2 Flow Rate FiO2 02/08/21 10:00 36.7 115 17 143/73 (96) 87 Mechanical Ventilator 100.00 02/08/21 09:56 115 27 139/71 02/08/21 09:00 36.6 113 24 150/69 (96) 85 Mechanical Ventilator 100.00 02/08/21 08:00 36.6 113 24 150/69 (96) 85 Mechanical Ventilator 100.00 02/08/21 07:40 85 Mechanical Ventilator 100 02/08/21 07:00 114 02/08/21 07:00 36.6 112 24 148/69 (95) 85 Mechanical Ventilator 100.00 02/08/21 06:47 112 24 85 100 02/08/21 06:00 36.7 114 24 139/64 (89) 86 Mechanical Ventilator 100.00 02/08/21 06:00 113 143/65 02/08/21 05:59 113 143/65 02/08/21 05:00 36.9 112 29 132/57 (82) 86 Mechanical Ventilator 100.00 02/08/21 04:00 37.2 109 26 119/54 (75) 86 Mechanical Ventilator 100.00 02/08/21 03:25 90 Mechanical Ventilator 100 02/08/21 03:00 37.8 116 25 113/46 (68) 87 Mechanical Ventilator 100.00 02/08/21 02:22 114 24 87 100 02/08/21 02:08 38.3 02/08/21 02:00 38.4 101 24 111/62 (78) 88 Mechanical Ventilator 100.00 02/08/21 01:37 38.4 02/08/21 01:00 94 02/08/21 01:00 38.2 102 29 127/52 (77) 89 Mechanical Ventilator 100.00 02/08/21 00:52 38.1 02/08/21 00:26 86 123/58 02/08/21 00:25 86 123/58 02/08/21 00:18 77 24 93 100 02/08/21 00:00 37.8 84 25 104/52 (69) 91 Mechanical Ventilator 100.00 02/07/21 23:10 90 Mechanical Ventilator 100 02/07/21 23:00 37.6 76 24 103/58 (73) 90 Mechanical Ventilator 100.00 02/07/21 23:00 37.7 Mechanical Ventilator 100.00 02/07/21 22:00 37.6 75 21 123/64 (83) 90 Mechanical Ventilator 100.00 02/07/21 21:31 75 26 90 100 02/07/21 21:00 37.5 76 24 99/50 (66) 91 Mechanical Ventilator 100.00 02/07/21 20:57 74 24 102/52 02/07/21 20:00 37.5 74 25 100/57 (71) 90 Mechanical Ventilator 100.00 02/07/21 19:30 89 Mechanical Ventilator 100 02/07/21 19:00 73 02/07/21 19:00 37.5 72 25 106/63 (77) 89 Mechanical Ventilator 100.00 02/07/21 19:00 37.5 24 Mechanical Ventilator 100.00 02/07/21 18:47 74 24 88 100 02/07/21 18:47 74 24 88 100 02/07/21 18:44 74 24 88 100 02/07/21 18:00 37.4 66 24 115/75 (88) 90 Mechanical Ventilator 100.00 02/07/21 17:46 66 109/63 02/07/21 17:45 66 109/63 02/07/21 17:10 37.4 02/07/21 17:00 37.4 66 24 108/49 (68) 90 Mechanical Ventilator 100.00 02/07/21 16:00 91 Mechanical Ventilator 100 02/07/21 16:00 37.4 70 24 102/59 (73) 90 Mechanical Ventilator 100.00 02/07/21 15:52 37.3 02/07/21 15:00 37.4 72 24 106/61 (76) 91 Mechanical Ventilator 100.00 02/07/21 14:16 71 24 91 100 02/07/21 14:03 70 24 100/55 02/07/21 14:00 37.6 68 23 95/56 (69) 90 Mechanical Ventilator 100.00 02/07/21 13:00 37.6 70 24 111/66 (81) 93 Mechanical Ventilator 100.00 02/07/21 12:26 70 02/07/21 12:00 37.6 82 24 109/68 (82) 93 Mechanical Ventilator 100.00 02/07/21 12:00 91 Mechanical Ventilator 100 02/07/21 11:00 37.7 79 25 144/65 (91) 90 Mechanical Ventilator 100.00 02/07/21 10:35 80 24 89 100 I & O 02/08/21 07:00 Intake Total 4185.0 ml Output Total 4035 ml Balance 150.0 ml Height & Weight Height: 5'11" Weight: 305lbs. oz. 138.476213az; 39.92 BMI Method:Stated General Appearance: No Apparent Distress, WD/WN, Chronically ill, Obese, Other (Intubated and sedated) HEENT: PERRL/EOMI, Normal ENT Inspection, Pharynx Normal, Moist Mucous Membrane s Neck: Full Range of Motion, Normal Inspection, Non Tender Respiratory: No Accessory Muscle Use, No Respiratory Distress, Decreased Breath Sounds Cardiovascular: Regular Rate, Rhythm Capillary Refill: Less Than 3 Seconds Peripheral Pulses: 2+ Dorsalis Pedis (R), 2+ Left Dors-Pedis (L), 2+ Radial Pulses (R) Gastrointestinal: normal bowel sounds, non tender, soft Extremity: Other Neurologic/Psychiatric: Alert, Oriented x3, No Motor/Sensory Deficits, Normal Mood/Affect Skin: Normal Color, Warm/Dry Lymphatic: No Adenopathy Results Lab Laboratory Tests 02/06/21 18:15 02/07/21 02:25 02/08/21 02:19 Assessment/Plan Assessment/Plan (Tele-ICU Physician , Progress Note ) Available chart/ vitals / labs / Images reviewed Video assessment done using teleICU camera, rest of exam as per RN can tot reach RN for discussion with multiple attempts Events overnight : was not prone hemodynamically stable, pressors + LESS FEBRILE I/O = even Drips: [id number] ativan gtt, fentanyl , OFF PRESSORS Consultants: CXR r 01/28 eport reviewed.has bilateral opacities 01/30 - increased RLL density - atelectais ? 01/11- = samw blood cx 01/27 - neg sputum 01/30- usual jarad , 02/03 = staph aureus port 02/03 staph coag neg Urine 02/03 - staph coag neg 02/06 - blood cx - negative , tipp catheted negative Hospital course: 01/27=40 y/o with Hx of DM2, possible CONCEPCIÓN, non compliant with meds. Came in for COVID-19 01/29-ICU for increased WOB and worsening hypoxia. Was on high flow @ 40 kpm with FiO2 100%, now back on BiPAP 12/8 FiO2 90%. 01/30- BiPAP 15/8 FiO2 100%. rr 28 tv 800, MV 28L= > intubated 02/01 - shock , started on levo 02/04) Full DNR, maintain current level of care. (02/05) 0300, Did not tolerate un-proning to supine, iv push paralytic, vent changes. Temp is 103 02/06 - hold proning , vent changed , push paralytics prn 02/07 - copious secretion on succtioning 02/08 - paralysis VENT SETTINGS. PC 30 ,100 % peep 18 ,rr 26 MV 20 PAP 52 ABG reviewed SBT - not candidate today vital /Cardiovascular Stability/Sedation Score/FI02/PEEP/ABG/CXR reviewed . A/P Acute reps failure - , hypoxic , Covid PNA - full vent support , PC 30 ,100 % peep 18 ,rr 26 MV 20 PAP 52 - will decrease rr - holding prove on now , no improvement with diuresis - stable CR - will cont diresis ( 20 LB donna gain since admissimn ) === prn paralisis diuresis today follow closely === increase br - dilators for micous plugging - 02/08 added paralysis - still hypoxic - will rechec d dimer - ? VTE ? try to wean off propofol - increasing ativan gtt COVID19 Remdesivir Decadron PO 6 - to IV 01/30 , increased dose - decrease to 6 starting 02/08 ddimet 0.5 01/27 -> lovenox proph dose Shock - OFF LEVO DM II - levemir - mild hy[erglycemia Leukocytosis/ fever - vanco 02/04 persistent fever - will do 5 days , and ? wbc = add merem 02/06 PICC line left :line _ staph hominis - PICC changed 02/06 02/07 - added eraxis ( elevater TGL - on ativan gtt with ssome propofol - amylase WNL 02/07 Hypernatremia - resolved , anticipate ?NA with diuresis - will start D5 w Lines : 01/30 PICC left - out 02/06 . RIGHT picc 02/06 , (Central Line Necessity Reviewed) - Lucero: 01/30 O/22 Nutrition: TF while supine Analgesia: fentanyl prn Anxiety/ delirium = propofol , intubated 01/30 = AAO VTE Prophylaxis: Jair 40 q12 Stress Ulcer Prophylaxis: PPI Glycemic Control: + Plans in collaboration with bedside consultants and IM MDs. RN to reach out if any questions or concerns A total of 35 minutes of critical care time was devoted to this patient today, required to treat and/or prevent further deterioration of critical care condition ( as above ) . CLARK YOUNG MD Feb 08, 2021 10:09
[2021-02-08] MEDS: ANIDULAFUNGIN INJECTION 100 MG in NS (IVPB) 100 ML IV SCH (14:04)
[2021-02-08] MEDS ORDERED: NOREPINEPHRINE 8 MG/250 ML 0 ML IV ONE (14:42)
[2021-02-08] MEDS: SIMvastatin 10 MG (ZOCOR) TAB PO SCH (20:17)
[2021-02-08] MEDS ORDERED: NS IV 1000 ML 1,000 ML ONE (22:33)
[2021-02-09] VITALS (29 sets, daily range): BP systolic 24–127; BP diastolic 55–93
[2021-02-09] MEDS: PROPOFOL DRIP (ICU) 100 ML IV SCH ×4 (00:48→13:52)
[2021-02-09] MEDS: VANCOMYCIN INJECTION 1,250 MG in NS (IVPB) 250 ML IV SCH ×2 (00:49→12:20)
[2021-02-09] MEDS: LORazepam INJECTION FOR DRIP 20 MG in D5W 100 ML IVPB 90 ML IV SCH ×7 (01:02→20:22)
[2021-02-09] MEDS: RT-ALBUTEROL INHALER HFA (VENTOLIN HFA) 18 GM IH SCH ×6 (01:57→21:30)
[2021-02-09] MEDS: fentaNYL DRIP PRE-MIX 250 ML IV SCH ×5 (02:04→22:05)
[2021-02-09] MEDS: MEROPENEM 500 MG in WATER (STERILE) FOR INJECTION 10 ML IV SCH ×4 (02:05→20:18)
[2021-02-09] MEDS: ACETAMINOPHEN 325 MG TABLET PO PRN ×4 (02:05→22:14)
[2021-02-09] MEDS: NOREPINEPHRINE 8 MG/250 ML 250 ML IV SCH ×3 (02:21→22:06)
[2021-02-09] MEDS: CISATRACURIUM INJECTION 100 MG in NS (IVPB) 200 ML IV SCH ×7 (02:22→23:08)
[2021-02-09 03:10] LABS: ABG BASE EXCESS -3.6 MMOL/L (-2.5-2.5); ABG OXYGEN SATURATION 88 % (94-100); ABG PCO2 66 MMHG (35-45); ABG PO2 73 MMHG (79-93); ABG TCO2 25.2 MMOL/L (21.0-31.0)
[2021-02-09 03:11] LABS: BASOPHILS # (AUTO) 0.2 10^3/uL (0.0-0.1); BASOPHILS % (AUTO) 1 % (0-10); EOSINOPHILS # (AUTO) 0.2 10^3/uL (0.0-0.3); EOSINOPHILS % (AUTO) 1 % (0-10); HEMATOCRIT 35 % (40-54); HEMOGLOBIN 11.1 g/dL (13.3-17.7); LYMPHOCYTES # (AUTO) 1.4 10^3/uL (1.0-4.0); LYMPHOCYTES % (AUTO) 6 % (12-44); MEAN CORPUSCULAR HEMOGLOBIN 28 pg (25-34); MEAN CORPUSCULAR HGB CONC 32 g/dL (32-36); MEAN CORPUSCULAR VOLUME 87 fL (80-99); MEAN PLATELET VOLUME 10.3 fL (9.0-12.2); MONOCYTES # (AUTO) 1.4 10^3/uL (0.0-1.0); MONOCYTES % (AUTO) 6 % (0-12); NEUTROPHILS % (AUTO) 79 % (42-75); PLATELET COUNT 365 10^3/uL (130-400); WHITE BLOOD COUNT 22.8 10^3/uL (4.3-11.0)
[2021-02-09 03:12] LABS: ALLENS TEST ART LINE; INSPIRED O2 100%; PATIENT TEMP 38.4; VENTILATOR YES
[2021-02-09 03:13] LABS: ABG PH 7.18 (7.37-7.43)
[2021-02-09 03:34] LABS: POTASSIUM 4.9 MMOL/L (3.6-5.0)
[2021-02-09 03:35] LABS: CALCIUM 7.5 MG/DL (8.5-10.1)
[2021-02-09 03:39] LABS: PHOSPHORUS 6.8 MG/DL (2.3-4.7)
[2021-02-09 03:40] LABS: CREATININE SERUM 2.55 MG/DL (0.60-1.30)
[2021-02-09 03:42] LABS: BAND NEUTROPHILS 1 %; EOSINOPHILS % (MANUAL) 2 %; LYMPHOCYTES % (MANUAL) 10 %; MAGNESIUM 2.3 MG/DL (1.6-2.4); MONOCYTES % (MANUAL) 7 %; NEUTROPHILS % (MANUAL) 79 %; POLYCHROMASIA SLIGHT
[2021-02-09] MEDS: inSUlin ASPART (NovoLOG) 1 UNIT/0.01 ML (CHARGE PER UNIT) SC SCH ×3 (04:54→18:21)
[2021-02-09] MEDS: KCL 20 MEQ TAB (K-DUR) PO SCH (05:48)
[2021-02-09] MEDS: MAGNESIUM 1 GM/100 ML IVPB 100 ML IV SCH (05:48)
[2021-02-09] MEDS: POTASSIUM CL 10MEQ/50ML IVPB 50 ML IV SCH (05:48)
[2021-02-09] MEDS: IPRATROPIUM INHALER (ATROVENT) 12.9 GM INH SCH ×4 (06:43→18:13)
[2021-02-09] MEDS: ADVAIR HFA 115/21 MCG INHALER 8 GM IH SCH ×2 (06:43→18:13)
[2021-02-09] MEDS: FUROSEMIDE 40 MG/4 ML INJ (LASIX) IVP SCH (08:16)
[2021-02-09] MEDS: PANTOPRAZOLE 40 MG (PROTONIX) VIAL IV SCH (08:16)
[2021-02-09] MEDS: LACRI-LUBE OPTHALMIC OINT 3.5 GM TUBE OU SCH ×2 (08:17→20:19)
[2021-02-09] MEDS: ENOXAPARIN 40 MG/0.4 ML (LOVENOX) SYR SC SCH ×2 (08:17→20:19)
[2021-02-09] MEDS: SENNA W/DOCUSATE (SENOKOT S) TABLET PO SCH ×2 (08:17→22:13)
--- NOTE | 2021-02-09 08:17 | Diagnostic Imaging Report ---
EXAMINATION: Chest 1 view HISTORY: COVID positive, ventilated COMPARISON: 02/08/2021 FINDINGS: Heart size and pulmonary vasculature are stable. Stable patchy interstitial and airspace opacities seen throughout both lungs. Medical support lines and tubes are unchanged. No pneumothorax. The osseous structures are intact. IMPRESSION: 1. Stable patchy interstitial and airspace opacities throughout both lungs, not significantly changed from 02/08/2021. Dictated by: Dictated on workstation # [id number]
[2021-02-09] MEDS: D5W 1000 ML IV SOLUTION 1,000 ML IV SCH ×2 (08:18→23:08)
--- NOTE | 2021-02-09 08:45 | Tele-ICU Progress Note ---
Subjective Date Seen by a Provider: Feb 09, 2021 Time Seen by a Provider: 08:43 Subjective/Events-last exam COVID, Now off pressors, sedation is Propofol on 20, [TG's were up at 400], On IV Ativan at 6, On Nimbex, TOF is 4/4 on 1 mcg/kg/min, yesterday was 2/4 PCRV 24/Vt 400/FiO2 100% PEEP 20 Peak Paw 40's, Has PICC line, previous one which had staph hominis is out PICC line site ok, placed 02/06 Family informed of poor prognosis temp remains up at 101.5 Sepsis Event Evaluation Height, Weight, BMI Height: 5'11" Weight: 305lbs. oz. 138.236150mo; 39.92 BMI Method:Stated Exam Exam Patient acknowledged, consented, and participated in this virtual visit which was conducted using real time audio/video Vital Signs Date Time Temp Pulse Resp B/P (MAP) Pulse Ox O2 Delivery O2 Flow Rate FiO2 02/09/21 08:19 124 24 107/65 02/09/21 08:00 38.3 122 24 127/64 (85) 90 Mechanical Ventilator 100.00 02/09/21 07:00 121 02/09/21 07:00 38.2 121 24 103/62 (76) 90 Mechanical Ventilator 100.00 02/09/21 06:43 121 24 89 100 02/09/21 06:00 38.2 120 24 113/59 (77) 89 Mechanical Ventilator 100.00 02/09/21 05:00 38.2 118 24 116/60 (78) 89 Mechanical Ventilator 100.00 02/09/21 04:53 118 24 105/62 02/09/21 04:00 38.4 111 24 94/62 (73) 88 Mechanical Ventilator 100.00 02/09/21 04:00 89 Mechanical Ventilator 100 02/09/21 03:00 38.3 110 24 104/65 (78) 89 Mechanical Ventilator 100.00 02/09/21 02:35 38.3 02/09/21 02:21 106 103/75 02/09/21 02:05 38.4 02/09/21 02:00 38.4 105 24 98/73 (81) 89 Mechanical Ventilator 100.00 02/09/21 01:57 105 24 87 100 02/09/21 01:07 108 105/74 02/09/21 01:02 108 24 105/76 02/09/21 01:00 110 02/09/21 01:00 38.6 107 24 104/72 (83) 88 Mechanical Ventilator 100.00 02/09/21 00:48 108 116/68 02/09/21 00:00 38.6 108 32 124/73 (90) 87 Mechanical Ventilator 100.00 02/08/21 23:59 90 Mechanical Ventilator 100 02/08/21 23:59 38.6 02/08/21 23:00 38.7 109 24 124/69 (87) 87 Mechanical Ventilator 100.00 02/08/21 22:48 108 130/78 02/08/21 22:08 108 24 88 100 02/08/21 22:00 38.7 106 24 112/68 (83) 87 Mechanical Ventilator 100.00 02/08/21 21:47 90 Mechanical Ventilator 100 02/08/21 21:03 103 24 103/64 02/08/21 21:00 38.7 103 24 106/67 (80) 90 Mechanical Ventilator 100.00 02/08/21 20:00 38.7 103 24 98/63 (75) 92 Mechanical Ventilator 100.00 02/08/21 20:00 93 Mechanical Ventilator 100 02/08/21 19:00 100 02/08/21 19:00 38.6 101 24 96/64 (75) 92 Mechanical Ventilator 100.00 02/08/21 19:00 38.6 02/08/21 18:39 101 24 92 95 02/08/21 18:03 38.7 02/08/21 18:00 38.7 103 16 88/60 (69) 93 Mechanical Ventilator 100.00 02/08/21 17:00 38.6 112 24 98/61 (73) 93 Mechanical Ventilator 100.00 02/08/21 16:04 114 98/62 02/08/21 16:03 114 24 92/65 02/08/21 16:03 114 98/62 02/08/21 16:02 38.5 02/08/21 16:00 93 Mechanical Ventilator 100 02/08/21 16:00 38.5 115 24 100/64 (76) 92 Mechanical Ventilator 100.00 02/08/21 15:00 38.4 118 24 103/66 (78) 92 Mechanical Ventilator 100.00 02/08/21 14:18 118 24 92 95 02/08/21 14:05 38.1 02/08/21 14:05 38.1 02/08/21 14:00 38.0 118 24 98/65 (76) 93 Mechanical Ventilator 100.00 02/08/21 13:00 117 02/08/21 13:00 37.5 114 24 103/68 (80) 93 Mechanical Ventilator 100.00 02/08/21 12:00 37.1 109 24 106/64 (78) 89 Mechanical Ventilator 100.00 02/08/21 12:00 91 Mechanical Ventilator 100 02/08/21 11:13 112 121/65 02/08/21 11:13 112 121/65 02/08/21 11:00 36.8 115 24 126/71 (89) 86 Mechanical Ventilator 100.00 02/08/21 10:39 115 24 87 100 02/08/21 10:00 36.7 115 17 143/73 (96) 87 Mechanical Ventilator 100.00 02/08/21 09:56 115 27 139/71 02/08/21 09:00 36.6 113 24 150/69 (96) 85 Mechanical Ventilator 100.00 I & O 02/09/21 07:00 Intake Total 1470 ml Output Total 2180 ml Balance -710 ml Height & Weight Height: 5'11" Weight: 305lbs. oz. 138.284983pr; 39.92 BMI Method:Stated General Appearance: No Apparent Distress, WD/WN, Chronically ill, Obese, Other (Sedated on vent) HEENT: PERRL/EOMI, Normal ENT Inspection, Pharynx Normal, Moist Mucous Membranes Neck: Full Range of Motion, Normal Inspection, Non Tender Respiratory: Lungs Clear, Decreased Breath Sounds, Other (left lung has crackles, right lung has diminished BS) Cardiovascular: Regular Rate, Rhythm, Tachycardia Capillary Refill: Less Than 3 Seconds Peripheral Pulses: 2+ Dorsalis Pedis (R), 2+ Left Dors-Pedis (L), 2+ Radial Pulses (R) Gastrointestinal: non tender, soft, other (hypoactive bowel sounds) Extremity: No Pedal Edema, Slow Capillary Refill, Other Neurologic/Psychiatric: Alert, Oriented x3, No Motor/Sensory Deficits, Normal Mood/Affect, Other (sedated and paralyzed, ) Skin: Normal Color, Warm/Dry Lymphatic: No Adenopathy Results Lab Laboratory Tests 02/08/21 02:19 02/09/21 02:56 Assessment/Plan Assessment/Plan Tele-ICU Physician , Progress Note ) Available chart/ vitals / labs / Images reviewed Video assessment done using teleICU camera, rest of exam as per RN can tot reach RN for discussion with multiple attempts Events overnight : was not prone, hemodynamically stable, pressors + LESS FEBRILE I/O = even Drips: [id number] ativan gtt, fentanyl , OFF PRESSORS Consultants: CXR r 01/28 eport reviewed.has bilateral opacities 01/30 - increased RLL density - atelectais ? 01/11- = samw blood cx 01/27 - neg sputum 01/30- usual jarad , 02/03 = staph aureus port 02/03 staph coag neg Urine 02/03 - staph coag neg 02/06 - blood cx - negative , tipp catheted negative Hospital course: 01/27=40 y/o with Hx of DM2, possible CONCEPCIÓN, non compliant with meds. Came in for COVID-19 01/29-ICU for increased WOB and worsening hypoxia. Was on high flow @ 40 kpm with FiO2 100%, now back on BiPAP 12/8 FiO2 90%. 01/30- BiPAP 15/8 FiO2 100%. rr 28 tv 800, MV 28L= > intubated 02/01 - shock , started on levo 02/04) Full DNR, maintain current level of care. (02/05) 0300, Did not tolerate un-proning to supine, iv push paralytic, vent changes. Temp is 103 02/06 - hold proning , vent changed , push paralytics prn 02/07 - copious secretion on succtioning 02/08 - paralysis VENT SETTINGS. PC 30 ,100 % peep 18 ,rr 26 MV 20 PAP 52 ABG reviewed SBT - not candidate today vital /Cardiovascular Stability/Sedation Score/FI02/PEEP/ABG/CXR reviewed . A/P Acute reps failure - , hypoxic , Covid PNA - full vent support , PC 30 ,100 % peep 18 ,rr 26 MV 20 PAP 52 - will decrease rr - holding prove on now , no improvement with diuresis - stable CR - will cont diresis ( 20 LB donna gain since admissimn ) === prn paralisis diuresis today follow closely === increase br - dilators for micous plugging Page 1 of 3 VIRAL PETERSEN [facility] This is a permanent part of the medical record. Do not discard. 02/08/2021 10:18 THC Physician - Brief Progress Note 02/08 added paralysis - still hypoxic - will rechec d dimer - ? VTE ? try to wean off propofol - increasing ativan gtt COVID19 Remdesivir Decadron PO 6 - to IV 01/30 , increased dose - decrease to 6 starting 02/08 ddimet 0.5 01/27 -> lovenox proph dose Shock - OFF LEVO DM II - levemir - mild hy[erglycemia Leukocytosis/ fever - vanco 02/04 persistent fever - will do 5 days , and ? wbc = add merem 02/06 PICC line left :line _ staph hominis - PICC changed 02/06 02/07 - added eraxis ( elevater TGL - on ativan gtt with ssome propofol - amylase WNL 02/07 Hypernatremia - resolved , anticipate ?NA with diuresis - will start D5 w Lines : 01/30 PICC left - out 02/06 . RIGHT picc 02/06 , (Central Line Necessity Reviewed) - Lucero: 01/30 O/22 Nutrition: TF while supine Analgesia: fentanyl prn Anxiety/ delirium = propofol , intubated 01/30 = AAO VTE Prophylaxis: Jair 40 q12 Stress Ulcer Prophylaxis: PPI Glycemic Control: + Plans in collaboration with bedside consultants and IM MDs. RN to reach out if any questions or concerns A total of 35 minutes of critical care time was devoted to this patient today, required to treat and/or prevent further deterioration of critical care condition ( as above ) . Interventions Major-Respiratory failure - evaluation and management Intermediate-Diagnostic test evaluation, Infection - evaluation and management, Medication change / dose adjustment Minor-Clinical assessment - ordering diagnostic tests Page 2 of 3 VIRAL PETERSEN [facility] This is a permanent part of the medical record. Do not discard. 02/08/2021 10:18 02/09/21 Doing poorly, family informed, rise in pCO2 probably reflects lack of functioning alveoli, will keep on sedation/paralysis-needed due to high Peak Paw when off. continue abx and anti fungal, Cr has been rising 2.5, vancomycin level 43, will need to be on hold Critical Care: Critically Ill Patient Time spent with patient (mins): 35 TWAN HORNER MD Feb 09, 2021 08:45
--- NOTE | 2021-02-09 09:35 | Progress Note - Hospitalist ---
Subjective HPI/CC On Admission Date Seen by Provider: Feb 09, 2021 Time Seen by Provider: 09:30 Chief complaint: Shortness of breath due to Covid History of present illness: This is a 40-year-old white male diabetic noncomp liant with diabetic medication who does not use oxygen or CPAP machine but appears to be high risk for CPAP due to neck circumference and BMI of 40 who presented to the ER with shortness of breath was diagnosed with Covid and he is hypoxic. Patient has progressed throughout the day and at 2100 hrs. the decision was made to transfer up to the ICU for pulmonary critical care management due to maxed on Vapotherm likely will need BiPAP and possible intubation. His blood sugars remain in the 300s with aggressive insulin regimen trying to decrease the level. 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 He has not been vaccinated against COVID-19. Subjective/Events-last exam Patient about the same Labs remain abnormal Updated family on long conversation including girlfriend and sister who is a vet in [place] Nothing else can be done Objective Exam Vital Signs Vital Signs Date Time Temp Pulse Resp B/P (MAP) Pulse Ox O2 Delivery O2 Flow Rate FiO2 02/10/21 06:00 39.4 126 24 92/62 (72) 86 Mechanical Ventilator 100.00 02/10/21 02:03 100 Capillary Refill : Less Than 3 Seconds General Appearance: No Apparent Distress, WD/WN, Chronically ill, Other (Sedated on vent) Respiratory: Lungs Clear, Decreased Breath Sounds Cardiovascular: Regular Rate, Rhythm Results/Procedures Lab Laboratory Tests 02/10/21 04:30 Patient resulted labs reviewed. Assessment/Plan Assessment and Plan Assess & Plan/Chief Complaint Assessment: Ventilator dependent respiratory failure Acute hypoxic respiratory failure from COVID-19 pneumonia requiring intubation since failed Vapotherm and BiPAP Diabetes [id number] Obesity Suspicion of obstructive sleep apnea Bacteremia with staph replaced PICC line Plan: Supportive care Prognosis guarded 02/06/2021: Complex issues Poor prognosis Appreciate eICU vent management Change out PICC line due to bacteremia and culture tip 02/07/2021: Add Eraxis Monitor fever Maintain vancomycin and meropenem 02/08/2021: Continue aggressive care Poor prognosis 02/09/2021: Updated family Getting close to futility Critical Care Ventilator Management Diagnosis/Problems Diagnosis/Problems (1) COVID-19 Status: Acute (2) Hypoxia Status: Acute REHAN GRANT DO Feb 09, 2021 09:35
[2021-02-09] MEDS: IBUPROFEN 600 MG (MOTRIN) TAB PO PRN (11:01)
[2021-02-09] MEDS ORDERED: fentaNYL DRIP PRE-MIX 250 ML IV ONE (13:38)
[2021-02-09] MEDS: ANIDULAFUNGIN INJECTION 100 MG in NS (IVPB) 100 ML IV SCH (13:52)
[2021-02-09] MEDS ORDERED: NS IV 500 ML 500 ML ONE (16:26)
[2021-02-09] MEDS ORDERED: NS IV 500 ML 500 ML IV SCH (17:15)
[2021-02-09] MEDS: NS IV 500 ML 500 ML IV SCH (18:40)
[2021-02-09] MEDS: SIMvastatin 10 MG (ZOCOR) TAB PO SCH (20:18)
--- NOTE | 2021-02-09 21:24 | Tele-ICU Progress Note ---
Subjective Time Seen by a Provider: 21:18 Assessment/Plan Assessment/Plan Called for worsening hypoxia, 86% on PCRV 24/Vt 400/FiO2 100% PEEP 18 40 yo M with COVID, severe refractory hypoxemic and hypercapnic respiratory failure, intubated per record on 01/30, no longer tolerating prone position on Nimbex. No ECMO, salvage therapies available. Has been only able to tolerate ?PC settings. Has DNR in place Earlier today PEEP was lowered to 18 due to new hypotension and need for levophed @ 0.1 RN requesting order to increase PEEP back to 20 Chest exam per bedside unchanged Recommend repeat ABG, CXR now-- evaluate for pneumothorax or other acute change in status New vent settings adjusted resume prior settings PCRV 24/Vt 520/FiO2 100% PEEP 20 Critical Care: Ventilator Management Time spent with patient (mins): 15 Diagnosis/Problems Diagnosis/Problems (1) Hypoxia Status: Acute (2) On mechanically assisted ventilation Status: Acute CHELITA PICHARDO MD Feb 09, 2021 21:24
[2021-02-09] MEDS ORDERED: NOREPINEPHRINE 8 MG/250 ML 250 ML IV ONE (22:00)
[2021-02-09 23:29] LABS: ABG BASE EXCESS -7.4 MMOL/L (-2.5-2.5); ABG OXYGEN SATURATION 80 % (94-100); ABG PCO2 62 MMHG (35-45); ABG PO2 59 MMHG (79-93); ABG TCO2 22.1 MMOL/L (21.0-31.0)
[2021-02-09 23:30] LABS: INSPIRED O2 100%; PATIENT TEMP 37; VENTILATOR YES
[2021-02-09 23:31] LABS: ABG PH 7.14 (7.37-7.43); ALLENS TEST ART LINE
[2021-02-10] VITALS (15 sets, daily range): BP systolic 79–117; BP diastolic 41–71
[2021-02-10] MEDS: LORazepam INJECTION FOR DRIP 20 MG in D5W 100 ML IVPB 90 ML IV SCH ×3 (00:17→08:57)
[2021-02-10] MEDS: RT-ALBUTEROL INHALER HFA (VENTOLIN HFA) 18 GM IH SCH ×3 (02:03→11:13)
[2021-02-10] MEDS: MEROPENEM 500 MG in WATER (STERILE) FOR INJECTION 10 ML IV SCH ×2 (02:14→08:24)
[2021-02-10] MEDS: fentaNYL DRIP PRE-MIX 250 ML IV SCH ×3 (02:14→08:26)
[2021-02-10] MEDS: IBUPROFEN 600 MG (MOTRIN) TAB PO PRN (02:15)
[2021-02-10] MEDS: CISATRACURIUM INJECTION 100 MG in NS (IVPB) 200 ML IV SCH ×3 (02:15→08:26)
[2021-02-10] MEDS: ACETAMINOPHEN 325 MG TABLET PO PRN (02:16)
[2021-02-10] MEDS: PROPOFOL DRIP (ICU) 100 ML IV SCH ×2 (04:21→04:22)
[2021-02-10 04:48] LABS: ABG BASE EXCESS -9.8 MMOL/L (-2.5-2.5); ABG OXYGEN SATURATION 84 % (94-100); ABG PCO2 69 MMHG (35-45); ABG PO2 70 MMHG (79-93); ABG TCO2 20.1 MMOL/L (21.0-31.0); BASOPHILS # (AUTO) 0.2 10^3/uL (0.0-0.1); BASOPHILS % (AUTO) 0 % (0-10); EOSINOPHILS # (AUTO) 0.2 10^3/uL (0.0-0.3); EOSINOPHILS % (AUTO) 0 % (0-10); HEMATOCRIT 36 % (40-54); HEMOGLOBIN 11.3 g/dL (13.3-17.7); LYMPHOCYTES # (AUTO) 1.2 10^3/uL (1.0-4.0); LYMPHOCYTES % (AUTO) 3 % (12-44); MEAN CORPUSCULAR HEMOGLOBIN 28 pg (25-34); MEAN CORPUSCULAR HGB CONC 32 g/dL (32-36); MEAN CORPUSCULAR VOLUME 88 fL (80-99); MEAN PLATELET VOLUME 10.7 fL (9.0-12.2); MONOCYTES # (AUTO) 2.3 10^3/uL (0.0-1.0); MONOCYTES % (AUTO) 5 % (0-12); NEUTROPHILS # (AUTO) 34.2 10^3/uL (1.8-7.8); NEUTROPHILS % (AUTO) 80 % (42-75); PLATELET COUNT 546 10^3/uL (130-400)
[2021-02-10 04:52] LABS: WHITE BLOOD COUNT 42.7 10^3/uL (4.3-11.0)
[2021-02-10 04:53] LABS: ABG PH 7.07 (7.37-7.43); ALLENS TEST ART LINE; INSPIRED O2 100%; PATIENT TEMP 39.5; VENTILATOR YES
[2021-02-10 05:02] LABS: POTASSIUM 6.1 MMOL/L (3.6-5.0)
[2021-02-10 05:04] LABS: CALCIUM 7.4 MG/DL (8.5-10.1)
[2021-02-10 05:08] LABS: CREATININE SERUM 4.21 MG/DL (0.60-1.30); PHOSPHORUS 9.3 MG/DL (2.3-4.7)
[2021-02-10 05:10] LABS: MAGNESIUM 2.4 MG/DL (1.6-2.4)
[2021-02-10 05:19] LABS: BAND NEUTROPHILS 5 %; LYMPHOCYTES % (MANUAL) 5 %; METAMYELOCYTES % 2 %; MONOCYTES % (MANUAL) 3 %; NEUTROPHILS % (MANUAL) 84 %
[2021-02-10 05:20] LABS: ATYPICAL LYMPHOCYTES 1 %; POLYCHROMASIA SLIGHT
[2021-02-10] MEDS ORDERED: inSUlin (REGULAR) HUMAN 1 UNIT/0.01 ML (CHARGE PER UNIT) SC ONE (05:45)
[2021-02-10] MEDS: KCL 20 MEQ TAB (K-DUR) PO SCH (05:58)
[2021-02-10] MEDS: MAGNESIUM 1 GM/100 ML IVPB 100 ML IV SCH (05:58)
[2021-02-10] MEDS: POTASSIUM CL 10MEQ/50ML IVPB 50 ML IV SCH (05:58)
[2021-02-10] MEDS ORDERED: NOREPINEPHRINE 8 MG/250 ML 250 ML IV ONE ×3 (06:49→11:34)
[2021-02-10] MEDS: NOREPINEPHRINE 8 MG/250 ML 250 ML IV SCH (06:55)
[2021-02-10] MEDS: IPRATROPIUM INHALER (ATROVENT) 12.9 GM INH SCH ×2 (07:11→11:13)
[2021-02-10] MEDS: ADVAIR HFA 115/21 MCG INHALER 8 GM IH SCH (07:11)
[2021-02-10] MEDS ORDERED: SODIUM BICARB 8.4% 50 MEQ/50 ML (ABBOTT) SYR IV NR (08:00)
[2021-02-10] MEDS ORDERED: DEXTROSE 50% 50 ML (IMS) SYR IV NR (08:00)
[2021-02-10] MEDS ORDERED: RT-ALBUTEROL/IPRATROPIUM 3 ML (DUONEB) VIAL INH NR (08:00)
[2021-02-10] MEDS ORDERED: inSUlin (REGULAR) HUMAN 1 UNIT/0.01 ML (CHARGE PER UNIT) IV NR (08:00)
[2021-02-10] MEDS ORDERED: SODIUM BICARB 8.4% 50 MEQ/50 ML VIAL IV ONE (08:00)
--- NOTE | 2021-02-10 08:02 | Tele-ICU Progress Note ---
Progress Note potassium this am is 6.1 up from 4.9 creatinine up to 4.2 will give iv bicarb, iv dextrose and insulin albuterol to all help with hyperkalemia will recheck K at 1200 Patient is DNR, but continue to treat all problems as they arise Focused Exam Height, Weight, BMI Height: 5'11" Weight: 305lbs. oz. 138.561568wc; 39.92 BMI Method:Stated TWAN WESTBROOK MD Feb 10, 2021 08:02
[2021-02-10] MEDS: FUROSEMIDE 40 MG/4 ML INJ (LASIX) IVP SCH (08:23)
[2021-02-10] MEDS: PANTOPRAZOLE 40 MG (PROTONIX) VIAL IV SCH (08:24)
[2021-02-10] MEDS: LACRI-LUBE OPTHALMIC OINT 3.5 GM TUBE OU SCH (08:24)
[2021-02-10] MEDS: ENOXAPARIN 40 MG/0.4 ML (LOVENOX) SYR SC SCH (08:24)
[2021-02-10] MEDS: SENNA W/DOCUSATE (SENOKOT S) TABLET PO SCH (08:24)
--- NOTE | 2021-02-10 08:45 | Tele-ICU Progress Note ---
Progress Note video rounds completed 40 y/o with Covid PNA and maximal medical therapy. On full vent support with progressive deterioration. Has profound metabolic and respiratory acidosis and extremely poor prognosis. Has kalina made DNR with no escalation of care. ECHMO or lung transplant not realistic at this point PE: sedated on vent Pulse: 117 BP: 90/54/sats: 86% Temp: 39.5 Labs: wbc 42.7 Hgb: 11.3 AB.07/69/70/18 Na: 135 K: 6.1 Cl: 102 Glu: 457 PLAN: supportive and comfort care, DBR Treat hyperK and recheck Unfortunately poor prognosis Focused Exam Height, Weight, BMI Height: 5'11" Weight: 305lbs. oz. 138.155420qa; 39.92 BMI Method:Stated TWAN WESTBROOK MD Feb 10, 2021 08:45
--- NOTE | 2021-02-10 08:57 | Diagnostic Imaging Report ---
EXAMINATION: Chest radiograph, portable AP view. DATE: 02/09/2021 11:12 PM INDICATION: 40-year-old male, worsening hypoxia. History of COVID 19 infection. COMPARISON: February 09, 2021. FINDINGS: The endotracheal tube is 4.5 cm above the debbie. The nasogastric tube extends at least to the level of the distal esophagus and proximal stomach although the tip is not well seen. The right-sided PIC line overlies the mid SVC. Heart size and mediastinal contours are unchanged. There is no identified pneumothorax. There is multifocal bilateral lung consolidation which appears essentially unchanged. Lung volumes are somewhat low. IMPRESSION: 1. Grossly unchanged multifocal bilateral lung consolidation. 2. Support lines and tubes as above. Dictated by: Dictated on workstation # [id number]
[2021-02-10] MEDS: NS IV 500 ML 500 ML IV SCH (10:30)
[2021-02-10] MEDS ORDERED: NS (IVPB) 100 ML ONE (11:06)
[2021-02-10] MEDS ORDERED: meTOprolol 5 MG/5 ML (LOPRESSOR) VIAL IV NR (11:15)
[2021-02-10] MEDS ORDERED: VASOPRESSIN INJECTION 20 UNIT in NS (IVPB) 100 ML IV SCH ×4 (11:15)
[2021-02-10] MEDS ORDERED: meTOprolol 5 MG/5 ML (LOPRESSOR) VIAL ONE (11:18)
[2021-02-10] MEDS ORDERED: EPINEPHrine (OMNICELL DRIP KIT ONLY) 1 MG/ML AMP ONE (11:24)
[2021-02-10] MEDS ORDERED: NORMAL SALINE 250 ML ONE (11:26)
[2021-02-10] MEDS ORDERED: EPINEPHrine 1 MG INJECTION 8 MG in NS (IVPB) 242 ML IV SCH (11:30)
--- NOTE | 2021-02-10 11:32 | Tele-ICU Progress Note ---
Progress Note added vasopressin and epi drip for refractory hypotension Checking ABG Focused Exam Height, Weight, BMI Height: 5'11" Weight: 305lbs. oz. 138.325258rc; 39.92 BMI Method:Stated TWAN WESTBROOK MD Feb 10, 2021 11:32
--- NOTE | 2021-02-10 11:34 | Discharge Summary ---
Discharge Summary Hospital Course Problems/Dx: (1) COVID-19 Status: Acute (2) Hypoxia Status: Acute (3) On mechanically assisted ventilation Status: Acute (4) Acute respiratory failure Status: Acute Qualifiers: Qualified Codes: J96.01 - Acute respiratory failure with hypoxia (5) Diabetes mellitus, type 2 Status: Chronic Qualifiers: Qualified Codes: E11.65 - Type 2 diabetes mellitus with hyperglycemia Hospital Course Date of Admission: Jan 27, 2021 at 14:00 Admission Diagnosis : Family Physician/Provider: [facility] Date of Discharge: 02/10/21 Discharge Diagnosis: COVID-19 pneumonia fatal, ventilator dependent respiratory failure, multisystem organ failure with renal failure, diabetes Hospital Course: Patient had a lengthy hospital course for 15 days after he was admitted for COVI D-19 pneumonia and hypoxia he progressed quickly from nasal cannula to Vapotherm to BiPAP so was placed in the ICU ultimately intubated due to respiratory failure and acidosis. Had a long course including pneumonia treatment addition of Eraxis empirically and patient continued to decline. I updated the family in depth and on Friday he took a turn with complete renal failure with oliguria and leukocytosis of 42,000 with acidosis of 7.07 and on max FiO2 100% on ventilator he was DNR and girlfriend was able to arrive at the bedside while we kept clinical status with pressors and he quickly. Labs and Pending Lab Test: Laboratory Tests 02/09/21 11:47: Glucometer 371H 02/09/21 17:28: Glucometer 358H 02/09/21 23:15: [facility] Patient Temperature 37, Arterial Blood pH 7.14*L, Arterial Blood Partial Pressure CO2 62H, Arterial Blood Partial Pressure O2 59L, Arterial Blood HCO3 20L, Arterial Blood Total CO2 22.1, Arterial Blood Oxygen Saturation 80L, Arterial Blood Base Excess -7.4L, Mitchell Test ART LINE, Blood Gas Ventilator Setting YES, Blood Gas Inspired Oxygen 100% 02/10/21 00:15: Glucometer 359H 02/10/21 04:30: White Blood Count 42.7*H, Red Blood Count 4.05L, Hemoglobin 11.3L, Hematocrit 36L, Mean Corpuscular Volume 88, Mean Corpuscular Hemoglobin 28, Mean Corpuscular Hemoglobin Concent 32, Red Cell Distribution Width 14.1, Platelet Count 546H, Mean Platelet Volume 10.7, Immature Granulocyte % (Auto) 11, Neutrophils (%) (Auto) 80H, Lymphocytes (%) (Auto) 3L, Monocytes (%) (Auto) 5, Eosinophils (%) (Auto) 0, Basophils (%) (Auto) 0, Neutrophils # (Auto) 34.2H, Lymphocytes # (Auto) 1.2, Monocytes # (Auto) 2.3H, Eosinophils # (Auto) 0.2, Basophils # (Auto) 0.2H, Immature Granulocyte # (Auto) 4.7H, Neutrophils % (Manual) 84, Lymphocytes % (Manual) 5, Monocytes % (Manual) 3, Metamyelocytes % 2, Band Neutrophils 5, Atypical Lymphocytes 1, Polychromasia SLIGHT, Blood Gas Puncture Site RIGHT RADIAL, Blood Gas Patient Temperature 39.5, Arterial Blood pH 7.07*L, Arterial Blood Partial Pressure CO2 69H, Arterial Blood Partial Pressure O2 70L, Arterial Blood HCO3 18L, Arterial Blood Total CO2 20.1L, Arterial Blood Oxygen Saturation 84L, Arterial Blood Base Excess -9.8L, Mitchell Test ART LINE, Blood Gas Ventilator Setting YES, Blood Gas Inspired Oxygen 100%, Sodium Level 135, Potassium Level 6.1H, Chloride Level 102, Carbon Dioxide Level 14L, Anion Gap 19H, Blood Urea Nitrogen 62H, Creatinine 4.21#H, Estimat Glomerular Filtration Rate 16, BUN/Creatinine Ratio 15, Glucose Level 457*H, Calcium Level 7.4L, Phosphorus Level 9.3H, Magnesium Level 2.4 02/10/21 04:50: Triglycerides Level 411H 02/10/21 08:47: Potassium Level 6.6*H Microbiology 02/06/21 Catheter Tip Culture - Final, Complete Staphylococcus hominis Staphylococcus hominis#2 02/03/21 Urine Culture - Final, Complete Staphylococcus epidermidis 02/03/21 Gram Stain - Final, Complete 02/03/21 Sputum Culture - Final, Complete Staphylococcus aureus Usual upper respiratory jaard Home Meds Active Reported Pioglitazone HCl 45 Mg Tablet 45 Mg PO 1800 Omeprazole 20 Mg Tab.rap.dr 20 Mg PO HS Pregabalin 150 Mg Capsule 150 Mg PO TID Lovastatin 20 Mg Tablet 20 Mg PO HS Glipizide 10 Mg Tablet 10 Mg PO BIDAC LAST FILLED 11-23-2020 #60/30 DAY SUPPLY Invokana (Canagliflozin) 100 Mg Tablet 100 Mg PO DAILY Duloxetine HCl 60 Mg Capsule.dr 60 Mg PO HS Lisinopril-Hctz 20-25 mg Tab (Lisinopril/Hydrochlorothiazide) 1 Each Tablet 2 Each PO 1800 Assessment/Pt Instructions Discharge Planning: <30 minutes discharge planning Discharge Physical Examination Vital Signs Vital Signs Date Time Temp Pulse Resp B/P (MAP) Pulse Ox O2 Delivery O2 Flow Rate FiO2 02/10/21 11:09 156 24 94 100 02/10/21 11:00 39.8 101/58 (72) Mechanical Ventilator 100.00 Allergies: Coded Allergies: adhesive (Unverified Allergy, Unknown, RASH, 06/16/14) Discharge Summary Date of Admission Jan 27, 2021 at 14:00 Date of Discharge Admission Diagnosis Assessment: COVID-19 pneumonia Hypoxia maxing on Vapotherm transferring to ICU for BiPAP and possible intubation Morbid obesity BMI 40 Diabetes [id number] in 300 range hemoglobin A1c pending Neuropathy Hypertension Hyperlipidemia Plan: Transfer to the ICU BiPAP Possible intubation Lovenox twice daily Decadron Convalescent plasma Remdesivir Monitor closely Comfort Measures/ Advance Care discuss with: patient Time spent on discussion (min): 5 Discharge Diagnosis Assessment: Ventilator dependent respiratory failure Acute hypoxic respiratory failure from COVID-19 pneumonia requiring intubation since failed Vapotherm and BiPAP Diabetes [id number] Obesity Suspicion of obstructive sleep apnea Bacteremia with staph replaced PICC line Plan: Supportive care Prognosis guarded 02/06/2021: Complex issues Poor prognosis Appreciate eICU vent management Change out PICC line due to bacteremia and culture tip 02/07/2021: Add Eraxis Monitor fever Maintain vancomycin and meropenem 02/08/2021: Continue aggressive care Poor prognosis 02/09/2021: Updated family Getting close to futility (1) Hypoxia Status: Acute (2) On mechanically assisted ventilation Status: Acute REHAN GRANT DO Feb 10, 2021 11:34
[2021-02-10 11:40] LABS: ABG BASE EXCESS -17.5 MMOL/L (-2.5-2.5); ABG OXYGEN SATURATION 85 % (94-100); ABG PO2 85 MMHG (79-93); ABG TCO2 14.5 MMOL/L (21.0-31.0)
[2021-02-10 11:43] LABS: ABG PCO2 71 MMHG (35-45); ABG PH 6.91 (7.37-7.43)
[2021-02-10 11:44] LABS: ALLENS TEST ART LINE; INSPIRED O2 90%; PATIENT TEMP 39.9; VENTILATOR YES
[2021-02-10] MEDS ORDERED: EPINEPHrine 0.1 MG/ML 10 ML (HOSPIRA) SYR IJ ONE (15:08)
[2021-02-10] MEDS ORDERED: MEROPENEM 500 MG in WATER (STERILE) FOR INJECTION 10 ML IV SCH (17:00)
== END 2021-02-10 15:09 | disposition expired | DRG 207 ==
LOC: EDUNIT# 12:31 → ER 12:32 → 4TH 14:00 → ICU 01-28 21:10
PROVIDERS: ADMIT Internal Medicine; ATTEND Internal Medicine
PROC: XW033E5 Introduction of Remdesivir Anti-infective into Peripheral Vein, Percutaneous Approach, New Technology Group 5 (ICD-10-PCS; principal; 2021-01-28)
PROC: XW13325 Transfusion of Convalescent Plasma (Nonautologous) into Peripheral Vein, Percutaneous Approach, New Technology Group 5 (ICD-10-PCS; 2021-01-28)
PROC: 5A09457 Assistance with Respiratory Ventilation, 24-96 Consecutive Hours, Continuous Positive Airway Pressure (ICD-10-PCS; 2021-01-28)
PROC: 02HV33Z Insertion of Infusion Device into Superior Vena Cava, Percutaneous Approach (ICD-10-PCS; 2021-01-28)
PROC: 5A1955Z Respiratory Ventilation, Greater than 96 Consecutive Hours (ICD-10-PCS; 2021-01-30)
PROC: 0BH17EZ Insertion of Endotracheal Airway into Trachea, Via Natural or Artificial Opening (ICD-10-PCS; 2021-01-30)
DX: U07.1 COVID-19 (principal); J12.82 Pneumonia due to coronavirus disease 2019; J96.01 Acute respiratory failure with hypoxia; J96.02 Acute respiratory failure with hypercapnia; E87.0 Hyperosmolality and hypernatremia; Z68.42 Body mass index [BMI] 45.0-49.9, adult; E66.01 Morbid (severe) obesity due to excess calories; E11.65 Type 2 diabetes mellitus with hyperglycemia; K21.9 Gastro-esophageal reflux disease without esophagitis; F17.290 Nicotine dependence, other tobacco product, uncomplicated; J45.909 Unspecified asthma, uncomplicated; I10 Essential (primary) hypertension; E78.00 Pure hypercholesterolemia, unspecified; E78.5 Hyperlipidemia, unspecified; F41.9 Anxiety disorder, unspecified; F32.9 Major depressive disorder, single episode, unspecified; M19.91 Primary osteoarthritis, unspecified site; Z91.14 Patient's other noncompliance with medication regimen; M19.90 Unspecified osteoarthritis, unspecified site; E11.40 Type 2 diabetes mellitus with diabetic neuropathy, unspecified; I95.9 Hypotension, unspecified; R00.1 Bradycardia, unspecified; N28.9 Disorder of kidney and ureter, unspecified; G47.33 Obstructive sleep apnea (adult) (pediatric); R41.0 Disorientation, unspecified; Z66 Do not resuscitate; Z79.899 Other long term (current) drug therapy
CPT/HCPCS: 36415; 36569; 36584; 71045; 76937; 80048; 80053; 80202; 81000; 82150; 82805; 82947; 83036; 83605; 83735; 83880; 84100; 84132; 84145; 84478; 85007; 85025; 85027; 85379; 86141; 86900; 86901; 87040; 87070; 87077; 87081; 87088; 87186; 87205; 87636; 94002; 94003; 94640; 94660; 94664; 94760; 94799; 96360; 96372